=== PATIENT | female | born 1950 | race Caucasian/White ===

== ENCOUNTER 2017-12-12 10:07 | Inpatient (IN) ==
[2017-12-12] MEDS ORDERED: Ipratropium/Albuterol Neb 3 ML IH ONE (11:08)
[2017-12-12] MEDS ORDERED: Isovue-370 500 ML INFUS..BTL IV ONE (11:09)
--- NOTE | 2017-12-12 11:18 | Emergency Department Note ---
Disposition Clinical Impression: COPD exacerbation, RLQ abdominal pain, Fever Disposition: Admitted As Inpatient Condition: Fair Referrals: Rubén Olivia DO [Primary Care Provider] - Forms: ED Satisfaction Letter Time of Disposition: 14:50 General Adult HPI - General Chief complaint: ED Shortness of Breath/Dyspnea Stated complaint: COPD/illness Source: patient Limitations: no limitations Nursing Notes Reviewed: Yes Vital Signs Reviewed: Yes - History of Present Illness HPI Narrative: This is a 67-year-old female who started feeling ill on about Monday or Monday 2-3 days ago. She developed some abdominal pain towards the right lower quadrant that radiates into the right groin area. She had some nausea. She states that she started to feel weaker. She had a mechanical fall while outdoors yesterday scraping her right mckeon area. Had some trouble getting up at that time. They called the squad but she decided not to go to the hospital. She is also complaining of some worsening dyspnea. She lives on several liters of oxygen at home. And has a history of COPD. And she feels that her wheezing is worse than normal today. Pain Scale: 9 - Related Data Home Medications Medication Instructions Recorded Confirmed Fluticasone/Salmeterol [Advair 1 puff IH BID 01/23/15 10/16/17 250-50 Diskus] Ipratropium/Albuterol Sulfate 1 puff IH QID PRN 01/23/15 10/16/17 [Combivent Respimat Inhal [place]] Levothyroxine Sodium [Synthroid] 125 mcg PO DAILY 01/23/15 10/16/17 Lisinopril/Hydrochlorothiazide 1 tab PO DAILY 01/23/15 10/16/17 [Lisinopril-Hctz 20-12.5 mg Tab] Oxygen 8 l NS AD 01/23/15 10/16/17 Citalopram [CeleXA] 40 mg PO DAILY 01/26/15 10/16/17 Gabapentin [Neurontin] 600 mg PO BID 11/20/15 10/16/17 Pravastatin Sodium [Pravachol] 40 mg PO DAILY 11/20/15 10/16/17 Ergocalciferol (VITAMIN D2) 2,000 unit PO DAILY 12/04/15 10/16/17 [Vitamin D2] Furosemide [Lasix] 40 mg PO DAILY 04/18/17 10/16/17 Potassium Chloride [Klor-Con 10] 10 meq PO DAILY 04/18/17 10/16/17 Secukinumab [Cosentyx Pen] 150 mg SQ DAILY 10/16/17 10/16/17 glipiZIDE [Glucotrol] 5 mg PO BIDWM 10/16/17 10/16/17 Previous Rx's Medication Instructions Recorded Ferrous Sulfate 325 mg PO TID #90 tablet 09/28/17 Allergies Allergy/AdvReac Type Severity Reaction Status Date / Time No Known Allergies Allergy Verified 10/16/17 10:45 All systems ED: reviewed and negative except as stated. Constitutional: Reports: fever Cardiovascular: Denies: chest pain Respiratory: Reports: dyspnea, wheezes Gastrointestinal: Reports: abdominal pain, nausea Neurological: Denies: headache Past Medical History - Past Medical History Attestation: Yes The following information was validated with the patient. Medical history: Reports: arthritis, asthma, COPD, diabetes, hypertension, thyroid disease, other Surgical history: Reports: non-contributory Psychiatric history: Reports: anxiety - Social History Smoking Status: Former smoker Alcohol use: Reports: none Drug use: Reports: none Physical Exam - General Limitations: no limitations General appearance: alert, in no apparent distress - Head Head exam: atraumatic, normocephalic - Eye Eye exam: Present: PERRL, EOMI - Neck Neck exam: Present: normal inspection, full ROM. Absent: tenderness - Chest Chest inspection: Present: normal inspection - Respiratory Respiratory exam: Present: other (She has considerable diminishment bilaterally. ) - Cardiovascular Cardiovascular exam: Present: tachycardia - Abdominal Exam Abdominal exam: Present: soft, Non-Tender - Extremities Exam Extremities exam: Present: other (She had some pain with range of motion of the right hip but was able to do it. No obvious deformity of either lower extremity. 2 out of 4 dorsalis pedis and posterior tibialis pulses bilaterally) - Back Exam Back exam: Present: normal inspection. Absent: tenderness - Neurological Exam Neurological exam: Present: alert, oriented X3, CN II-XII intact Course Course Narrative: This patient's initial complaint actually was abdominal pain, it is right sided and low in the abdomen going on for at least 2-3 days. Her white count is greater than 27,000. She did have a fever. And now I have been called by the radiologist with the suggestion that this could be appendicitis. I discussed the case with general surgery and he has indicated that he is coming down to see the patient and further evaluate for potential surgical management. I have ordered Zosyn IV. This patient has other issues. She had a fall injuring her right leg. There is no evidence of a hip fracture or tib-fib fracture. She has some bruising and scrapes on the right knee. It looks like she did not hit her head or neck. She also has a bad case of COPD. Her lung sounds are very poor movement. She received duonebs. She is being admitted to the hospitalist service with surgery consultation. Vital Signs Temperature 100.5 F H 12/12/17 10:08 Pulse Rate 125 12/12/17 10:08 Respiratory Rate 24 12/12/17 10:08 Blood Pressure 129/70 12/12/17 10:08 O2 Sat by Pulse Oximetry 94 12/12/17 10:08 Temperature 100.5 F H 12/12/17 10:08 Pulse Rate 115 12/12/17 13:28 Respiratory Rate 17 12/12/17 13:28 Blood Pressure 110/79 12/12/17 13:28 O2 Sat by Pulse Oximetry 98 12/12/17 13:28 Oxygen Delivery Oxygen Delivery Nasal Cannula Medical Decision Making - Medical Records Medical records reviewed: Yes I reviewed the patient's medical records. - Lab Data Lab results reviewed: Yes I reviewed the patient's lab results. Result diagrams: 12/12/17 11:57 12/12/17 11:57 Lab Results 12/12/17 12/12/17 12/12/17 Range/Units 11:44 11:57 11:57 WBC 27.8 H (4.3-11.1) K/mcL RBC 2.90 L (3.82-4.97) M/mcL Hgb 8.5 L (11.5-15.4) g/dL Hct 26.8 L (35.3-44.9) % MCV 92.4 (83.0-100.0) fL MCH 29.3 (28.0-33.3) pg MCHC 31.7 (31.6-35.5) g/dL RDW 13.0 (11.5-14.5) % Plt Count 162 (140-400) K/mcL MPV 11.1 (9.4-12.4) fL Sample Site R Radial ABG pH 7.39 (7.32-7.45) pH Units ABG pCO2 66 H (35-45) mmHg ABG pO2 176 H (85-104) mmHg ABG HCO3 40 H (21-27) mEq/L ABG Total CO2 42 H (20-26) mEq/L ABG O2 Saturation 100 H (95-98) % ABG Base Excess 13 H (-2 to 3) mEq/L Wolf Test Positive O2 Delivery Device [employer] Inspired O2 50.0 (1-15=lpm [id number]=%) Sodium 136 (136-145) mEq/L Potassium 4.1 (3.5-5.1) mEq/L Chloride 94 L (98-107) mEq/L Carbon Dioxide 36 H (23-29) mEq/L BUN 29 H (8-23) mg/dL Creatinine 1.35 H (0.60-1.20) mg/dL Est GFR ( Amer) 47 L (> 60) Est GFR (Non-Af Amer) 39 L (> 60) BUN/Creatinine Ratio 21 (6-26) Glucose 220 H (70-105) mg/dL Calculated Osmolality 295 (280-300) Lactic Acid (0.5-2.2) mmol/L Calcium 9.3 (8.6-10.3) mg/dL Total Bilirubin 0.4 (0.3-1.0) mg/dL AST 23 (13-39) Units/L ALT 15 (7-52) Units/L Alkaline Phosphatase 78 (34-104) Units/L Troponin I < 0.03 (< 0.04) ng/mL Serum Total Protein 7.1 (6.4-8.9) g/dL Albumin 3.8 (3.5-5.7) g/dL Globulin 3.3 (2.4-3.5) g/dL Albumin/Globulin Ratio 1.2 (1.1-2.2) Urine Color (Yellow) Urine Clarity (Clear) Urine pH (5.0-8.0) pH Units Ur Specific [place] (1.010-1.025) Urine Protein (Neg-Trace) mg/dL Urine Glucose (UA) (Normal) mg/dL Urine Ketones (Negative) mg/dL Urine Blood (Negative) Urine Nitrite (Negative) Urine Bilirubin (Negative) Urine Urobilinogen (Normal) mg/dL Ur Leukocyte Esterase (Negative) Ur Culture Indicated? (NO) 12/12/17 12/12/17 Range/Units 11:57 12:25 WBC (4.3-11.1) K/mcL RBC (3.82-4.97) M/mcL Hgb (11.5-15.4) g/dL Hct (35.3-44.9) % MCV (83.0-100.0) fL MCH (28.0-33.3) pg MCHC (31.6-35.5) g/dL RDW (11.5-14.5) % Plt Count (140-400) K/mcL MPV (9.4-12.4) fL Sample Site ABG pH (7.32-7.45) pH Units ABG pCO2 (35-45) mmHg ABG pO2 (85-104) mmHg ABG HCO3 (21-27) mEq/L ABG Total CO2 (20-26) mEq/L ABG O2 Saturation (95-98) % ABG Base Excess (-2 to 3) mEq/L Wolf Test O2 Delivery Device Inspired O2 (1-15=lpm [id number]=%) Sodium (136-145) mEq/L Potassium (3.5-5.1) mEq/L Chloride (98-107) mEq/L Carbon Dioxide (23-29) mEq/L BUN (8-23) mg/dL Creatinine (0.60-1.20) mg/dL Est GFR ( Amer) (> 60) Est GFR (Non-Af Amer) (> 60) BUN/Creatinine Ratio (6-26) Glucose (70-105) mg/dL Calculated Osmolality (280-300) Lactic Acid 1.2 (0.5-2.2) mmol/L Calcium (8.6-10.3) mg/dL Total Bilirubin (0.3-1.0) mg/dL AST (13-39) Units/L ALT (7-52) Units/L Alkaline Phosphatase (34-104) Units/L Troponin I (< 0.04) ng/mL Serum Total Protein (6.4-8.9) g/dL Albumin (3.5-5.7) g/dL Globulin (2.4-3.5) g/dL Albumin/Globulin Ratio (1.1-2.2) Urine Color Yellow (Yellow) Urine Clarity Slightly Hazy (Clear) Urine pH 5.0 (5.0-8.0) pH Units Ur Specific [place] 1.026 H (1.010-1.025) Urine Protein Trace (Neg-Trace) mg/dL Urine Glucose (UA) Normal (Normal) mg/dL Urine Ketones Negative (Negative) mg/dL Urine Blood Negative (Negative) Urine Nitrite Negative (Negative) Urine Bilirubin Small H (Negative) Urine Urobilinogen Normal (Normal) mg/dL Ur Leukocyte Esterase Negative (Negative) Ur Culture Indicated? NO (NO) - Radiology Data Radiology results reviewed: Yes I reviewed the patient's radiology results. - EKG Data EKG #1 EKG attestation: Yes I reviewed and interpreted this EKG. EKG results narrative: EKG interpreted by me showing sinus tachycardia at a rate of 120, QRS of 89, QTC 365, axis of 65. ST depression laterally.
[2017-12-12 11:47] LABS: ABG Base Excess 13 mEq/L (-2 to 3); ABG HCO3 40 mEq/L (21-27); ABG Oxygen Saturation 100 % (95-98); ABG PCO2 66 mmHg (35-45); ABG PH 7.39 pH Units (7.32-7.45); ABG PO2 176 mmHg (85-104); ABG TCO2 42 mEq/L (20-26)
[2017-12-12 12:11] LABS: Mean Platelet Volume 11.1 fL (9.4-12.4)
[2017-12-12 12:12] LABS: Hematocrit 26.8 % (35.3-44.9); Hemoglobin 8.5 g/dL (11.5-15.4); Mean Corpuscular HGB Conc 31.7 g/dL (31.6-35.5); Mean Corpuscular Hemoglobin 29.3 pg (28.0-33.3); Mean Corpuscular Volume 92.4 fL (83.0-100.0); Platelet Count 162 K/mcL (140-400)
[2017-12-12 12:34] LABS: Troponin I < 0.03 ng/mL (< 0.04)
[2017-12-12 12:40] LABS: Alanine Aminotransferase 15 Units/L (7-52); Albumin 3.8 g/dL (3.5-5.7); Albumin/Globulin Ratio 1.2 (1.1-2.2); Alkaline Phosphatase 78 Units/L (34-104); Aspartate Amino Transferase 23 Units/L (13-39); BUN/Creatinine Ratio 21 (6-26); Bilirubin,Total 0.4 mg/dL (0.3-1.0); Blood Urea Nitrogen 29 mg/dL (8-23); Calcium 9.3 mg/dL (8.6-10.3); Carbon Dioxide 36 mEq/L (23-29); Chloride 94 mEq/L (98-107); Globulin 3.3 g/dL (2.4-3.5); Glucose 220 mg/dL (70-105); Osmolality,Calculated 295 (280-300); Potassium 4.1 mEq/L (3.5-5.1); Sodium 136 mEq/L (136-145); Total Protein 7.1 g/dL (6.4-8.9); eGFR For African Americans 47 (> 60); eGFR For Non-African Americans 39 (> 60)
[2017-12-12 12:41] LABS: Bilirubin,Urine Small (Negative); Blood,Urine Negative (Negative); Color,Urine Yellow (Yellow); Glucose,Urine (UA) Normal (Normal); Ketones,Urine Negative (Negative); Leukocyte Esterase,Urine Negative (Negative); Nitrite,Urine Negative (Negative); Protein,Urine Trace mg/dL (Neg-Trace); Specific Gravity,Urine 1.026 (1.010-1.025); Urobilinogen,Urine Normal (Normal)
[2017-12-12 12:44] LABS: Clarity,Urine Slightly Hazy (Clear)
[2017-12-12] MEDS ORDERED: Piperacillin/Tazobactam 3.375 GM in 0.9 % Sodium Chloride Mini Bag 100 ML IVPB ONE (14:49)
--- NOTE | 2017-12-12 15:35 | General Surg History&Physical ---
Date of Encounter: 12/12/17 Time of Encounter: 15:25 Assessment and Plan (1) Acute perforated appendicitis Current Visit: Yes Status: Acute The assessment and plan as outlined above was discussed with the patient and/or family members who expressed understanding and agreement. All questions were answered. Emergent laparoscopic appendectomy. She has end-stage COPD and her perioperative management will be problematic. She will likely be hypoxic and required prolonged ventilatory support. I think it is important to proceed with emergent appendectomy to hold the progression of sepsis History of Present Illness Chief complaint: Right lower quadrant abdominal pain HPI: Ms. Pruitt is a 67 year old female With end-stage COPD on continuous 5 L of oxygen. She developed right lower quadrant abdominal pain 3 days ago. Since that time she has had 2 falls at home because of the severity of pain in her right lower quadrant limits her ability to use her walker. She has continuous pain. She has shakes chills and fever. She has no history of diarrhea. She has not had previous right lower quadrant abdominal pain. She sought evaluation in the emergency room. CAT scan was obtained. CAT scan demonstrated appendicolith and periappendiceal fluid consistent with perforated appendicitis. Although the radiologist reported phlegmon, my interpretation suggests early perforation with not much in way of abscess formation. Blood cell count elevated 27,500. I have recommended emergent laparoscopic appendectomy to help the progression of sepsis. Admitted for emergent appendectomy Past Med Surg Social Fam HX - Past Medical History Medical history: arthritis, asthma, COPD, diabetes, hypertension, thyroid disease, other Additional medical history: oxygen use, cor. pulmonole, emphysema, bronchitis, pneumonia, hypothyroid, carpal tunnel,. chronic vertigo Psychiatric history: anxiety - Past Surgical History Surgical History: non-contributory Additional surgical history: EGD/colonoscopy - Social History Smoking Status: Former smoker Alcohol use: none Drug use: none Medications and Allergies Fluticasone/Salmeterol [Advair 250-50 Diskus] 1 puff IH BID 01/23/15 [History] Ipratropium/Albuterol Sulfate [Combivent Respimat Inhal [place]] 1 puff IH QID PRN 01/23/15 [History] Oxygen 8 l NS AD 01/23/15 [History] Citalopram [CeleXA] 40 mg PO DAILY 01/26/15 [History] Gabapentin [Neurontin] 600 mg PO BID 11/20/15 [History] Pravastatin Sodium [Pravachol] 40 mg PO DAILY 11/20/15 [History] Ergocalciferol (VITAMIN D2) [Vitamin D2] 2,000 unit PO DAILY 12/04/15 [History] Furosemide [Lasix] 40 mg PO DAILY 04/18/17 [History] Potassium Chloride [Klor-Con 10] 10 meq PO DAILY 04/18/17 [History] Ferrous Sulfate 325 mg PO TID #90 tablet 09/28/17 [Rx] Secukinumab [Cosentyx Pen] 300 mg SQ QMONTH 10/16/17 [History] glipiZIDE [Glucotrol] 5 mg PO DAILY 10/16/17 [History] Levothyroxine Sodium 125 mcg PO DAILY 12/12/17 [History] Lisinopril-HCTZ 20-12.5 [Prinzide 20-12.5] 1 tab PO DAILY 12/12/17 [History] Multivitamin [One Daily Essential] 1 tab PO DAILY 12/12/17 [History] 3 Allergy/AdvReac Type Severity Reaction Status Date / Time No Known Allergies Allergy Verified 10/16/17 10:45 Review of Systems All systems PM: The remainder of the systems were reviewed and are negative General Surgery Exam Initial Vital Signs Temp Pulse Resp BP Pulse Ox 100.5 F H 125 24 129/70 94 12/12/17 10:08 12/12/17 10:08 12/12/17 10:08 12/12/17 10:08 12/12/17 10:08 - General physical appearance well developed, well nourished, severe pain, chronically ill, other (Morbid obesity) - Neck no masses, no bruits, trachea midline, no lymphadectomy, no venous distension - Respiratory wheezing: bilateral (Markedly decreased breath sounds) - Abdomen Abdomen general surgery: Present: bowel sounds present, tender Abdominal Tenderness: Present: RLQ (Guarding and rebound tenderness in the right lower quadrant over McBurney's point) - Neurologic Present: CN 2-12 grossly intact, normal coordination, normal sensation - Psychiatric Psychiatric general surgery: Present: appropriate, oriented to person, oriented to place, oriented to time, speech is normal, memory intact Results - Labs 12/12/17 11:57 12/12/17 11:57 Abnormal lab results WBC 27.8 K/mcL (4.3-11.1) H 12/12/17 11:57 RBC 2.90 M/mcL (3.82-4.97) L 12/12/17 11:57 Hgb 8.5 g/dL (11.5-15.4) L 12/12/17 11:57 Hct 26.8 % (35.3-44.9) L 12/12/17 11:57 ABG pCO2 66 mmHg (35-45) H 12/12/17 11:44 ABG pO2 176 mmHg (85-104) H 12/12/17 11:44 ABG HCO3 40 mEq/L (21-27) H 12/12/17 11:44 ABG Total CO2 42 mEq/L (20-26) H 12/12/17 11:44 ABG O2 Saturation 100 % (95-98) H 12/12/17 11:44 ABG Base Excess 13 mEq/L (-2 to 3) H 12/12/17 11:44 Chloride 94 mEq/L (98-107) L 12/12/17 11:57 Carbon Dioxide 36 mEq/L (23-29) H 12/12/17 11:57 BUN 29 mg/dL (8-23) H 12/12/17 11:57 Creatinine 1.35 mg/dL (0.60-1.20) H 12/12/17 11:57 Est GFR ( Amer) 47 (> 60) L 12/12/17 11:57 Est GFR (Non-Af Amer) 39 (> 60) L 12/12/17 11:57 Glucose 220 mg/dL (70-105) H 12/12/17 11:57 Ur Specific [place] 1.026 (1.010-1.025) H 12/12/17 12:25 Urine Bilirubin Small (Negative) H 12/12/17 12:25 All other labs normal. - Imaging CT scan - abdomen: image reviewed (I personally reviewed the CAT scan of the abdomen. She has periappendiceal fluid and appendicolith as well as periappendiceal inflammation. I believe this is a early perforation rather than a phlegmon.)
[2017-12-12] MEDS ORDERED: Naloxone 0.4 MG/ML INJ IVP PRN ×2 (15:37→18:25)
--- NOTE | 2017-12-12 15:48 | Internal Med History&Physical ---
<Lauren Huitron Rajwinder - Last Filed: 12/12/17 17:04> Date of Encounter: 12/12/17 Time of Encounter: 15:46 Internal Medicine - H&P: HPI Chief complaint: Dyspnea, SOB, and RLQ abdominal pain Admitted From: Home Plans for Post Hospital Care: Home History of present illness: Ms. Pruitt is a 67 year old female with history of COPD, DM, and LUPE. The patient having abdominal pain that began on Monday. She indicates that the pain is RLQ that radiates to the right groin. The patient also indicated c/o sob and dyspnea. She has a hx of COPD and wears home o2/8L. She also reported a fall from yesterday when she scraped her right knee, a small abrasion is noted. The patient CXR showed subtle LL base opacity which could represent atelectasis vs a early developing PNA. The patient urine was neg for infection, however it was + for small bilirubin. WBC is 27.8, hgb is 8.5, creat 1.35, bs was 220. Trop was <0.03. The patient lactate is 1.2. Right hip xray was negative for fx. She was started on IV zosyn and will continue q8h. ABG performed. CT of abd showed findings consistent with acute appendicitis. Surgery was consulted in the ED and will follow the patient. Past Med Surg Social Fam HX - Past Medical History Medical history: arthritis, asthma, COPD, diabetes, hypertension, thyroid disease, other Additional medical history: oxygen use, cor. pulmonole, emphysema, bronchitis, pneumonia, hypothyroid, carpal tunnel,. chronic vertigo Psychiatric history: anxiety - Past Surgical History Surgical History: non-contributory Additional surgical history: EGD/colonoscopy - Social History Smoking Status: Former smoker Alcohol use: none Drug use: none Internal Medicine - H&P: Meds Fluticasone/Salmeterol [Advair 250-50 Diskus] 1 puff IH BID 01/23/15 [History] Ipratropium/Albuterol Sulfate [Combivent Respimat Inhal [place]] 1 puff IH QID PRN 01/23/15 [History] RX: Oxygen 8 l NS AD 01/23/15 [History] Citalopram [CeleXA] 40 mg PO DAILY 08/10/15 [History] Gabapentin [Neurontin] 600 mg PO BID 11/20/15 [History] Pravastatin Sodium [Pravachol] 40 mg PO DAILY 11/20/15 [History] Ergocalciferol (VITAMIN D2) [Vitamin D2] 2,000 unit PO DAILY 12/04/15 [History] Furosemide [Lasix] 40 mg PO DAILY 04/18/17 [History] Potassium Chloride [Klor-Con 10] 10 meq PO DAILY 04/18/17 [History] RX: Ferrous Sulfate 325 mg PO TID #90 tablet 09/28/17 [Rx] Secukinumab [Cosentyx Pen] 300 mg SQ QMONTH 10/16/17 [History] glipiZIDE [Glucotrol] 5 mg PO DAILY 10/16/17 [History] Multivitamin [One Daily Essential] 1 tab PO DAILY 12/12/17 [History] RX: Levothyroxine Sodium 125 mcg PO DAILY 12/12/17 [History] RX: Lisinopril-HCTZ 20-12.5 [Prinzide 20-12.5] 1 tab PO DAILY 12/12/17 [History] 3 Allergy/AdvReac Type Severity Reaction Status Date / Time No Known Allergies Allergy Verified 10/16/17 10:45 All Systems PM: A 10-system review of systems was performed and is negative for pertinent findings except as documented above in the HPI. - Constitutional Constitutional: fever(s), no chills, no night sweats - EENT Eyes: no change in vision, no discharge, no pain, no photophobia Ears: no ear discharge, no ear pain, no tinnitus Nose, mouth and throat: no dysphagia, no nasal discharge, no neck pain, no sore throat - Cardiovascular Cardiovascular ROS IM: dyspnea, no chest pain, no diaphoresis, no lightheadedness, no palpitations, no syncope - Respiratory Respiratory: cough, dyspnea, no wheezing, no excessive phlegm production - Gastrointestinal Gastrointestinal: nausea, no abdominal pain, no diarrhea, no hematemesis, no hematochezia, no melena, no vomiting - Genitourinary Genitourinary: no change in urinary stream, no dysuria, no flank pain, no hematuria - Musculoskeletal Musculoskeletal ROS IM: no numbness, no tingling - Integumentary Integumentary IM: sores (Right knee scrape, from fall), no rash, no unusual bruising - Neurological Neurological ROS: no confusion, no convulsions, no focal weakness, no numbness, no tingling, no tremor(s) - Hematologic/Lymphatic Hematologic/Lymphatic: no easy bruising - Constitutional Vitals: Temp Pulse Resp BP Pulse Ox 100.5 F H 115 17 110/79 98 12/12/17 10:08 12/12/17 13:28 12/12/17 13:28 12/12/17 13:28 12/12/17 13:28 General appearance: Present: cooperative, A&O X 3, answers questions appropriately - Head Head exam: Present: atraumatic, normocephalic - Eye Eye exam: Present: PERRL, conjuntiva pink, sclera anicteric Pupils: Present: PERRL - Neck Neck exam general surgery: Present: supple, trachea midline. Absent: lymphadenopathy - Respiratory Respiratory exam: Present: decreased breath sounds. Absent: accessory muscle use, rales, rhonchi, wheezes - Cardiovascular Cardiovascular exam: Present: RRR, +S1, +S2. Absent: diastolic murmur, gallop, rubs, systolic murmur - GI/Abdominal GI/Abdominal exam: Present: normal bowel sounds, soft, no peritoneal signs. Absent: distended, tenderness - Extremities Exam Extremities exam: Present: warm, radial pulses palpable and symmetrical. Absent : calf tenderness, cyanotic, pedal edema - Neurological Exam Neurological exam: Present: CN II-XII intact, oriented X3, no focal deficits. Absent: pronater drift, facial droop, speech deficit - Skin Skin exam: Present: dry, intact Internal Med - H&P Results - Labs CBC & Chem 7: 12/12/17 11:57 12/12/17 11:57 - Assessment and plan (1) Sepsis Current Visit: Yes Status: Acute Assessment and plan: Sepsis likely due to PNA and appendicitis. Monitor CBC and BMP daily. Continue IV zosyn and add doxycyline Surgery consulted for appendicitis plan for surgical intervention Qualifiers: Sepsis type: Pneumococcus Qualified Code(s): A40.3 - Sepsis due to Streptococcus pneumoniae (2) Acute perforated appendicitis Current Visit: Yes Status: Acute Assessment and plan: Dr. Montes De Oca was consulted by the ED. Plans for surgical intervention- Appendectomy. High risk for complications. Will continue zosyn IV q8h. Monitor daily labs. Pain controlled at this time. (3) COPD exacerbation Current Visit: Yes Status: Acute Assessment and plan: Bronchodilators prn sob and wheezing. Home o2, from 4-8L per the patient-currently on 4L D/T COPD the patient is high risk foe resp failure and may need to be placed on vent post surgery. (4) Pneumonia Current Visit: Yes Status: Suspected Assessment and plan: Suspected PNA, will start doxycycline in addition to zosyn Monitor daily labs Qualifiers: Pneumonia type: due to Pneumococcus Laterality: left Lung location: lower lobe of lung Qualified Code(s): J13 - Pneumonia due to Streptococcus pneumoniae - Time Spent With Patient Total time spent is greater than 50% in coordination of care (as documented) at patient's floor/unit and/or counseling patient: 25 - 35 minutes <Gurwinder Coombs - Last Filed: 12/12/17 17:14> Date of Encounter: 12/12/17 Time of Encounter: 15:45 Internal Medicine - H&P: HPI History of present illness: Ms. Pruitt is a 67 year old female All Systems PM: A 10-system review of systems was performed and is negative for pertinent findings except as documented above in the HPI. - Constitutional Vitals: Temp Pulse Resp BP Pulse Ox 100.5 F H 115 17 110/79 98 12/12/17 10:08 12/12/17 13:28 12/12/17 16:09 12/12/17 16:09 12/12/17 16:09 Internal Med - H&P Results - Labs CBC & Chem 7: 12/12/17 11:57 12/12/17 11:57 - Attending Attestation I examined this patient and my medical decision-making was reviewed with the Nurse Practitioner, Lauren Huitron. I agree with the documented findings, disposition and treatment plan as described with any changes as documented below. 67-year-old female patient with history of COPD and chronic respiratory failure on 8 L home oxygen at baseline, diabetes, hypertension presented to the ER with complaints of abdominal pain in the right lower quadrant. Has been going on for 3 days now. She had a fall at home while trying to use the bathroom yesterday and scraped her right knee. She denies any chest pain. She does have chronic cough and shortness of breath related to her COPD. On exam, she has decreased air entry bilaterally with mild wheezing. Abdomen is soft, tender in the right lower quadrant with guarding. Heart sounds are normal. CT scan of the abdomen and pelvis shows acute appendicitis with fluid collection and diverticulosis. Chest x-ray shows possible atelectasis or infiltrate in the left lung base. CT scan did show mild basilar atelectasis. - Assessment and plan (1) Sepsis Current Visit: Yes Status: Acute Assessment and plan: Continue antibiotics to treat pneumonia and appendicitis. Follow culture results. Qualifiers: Sepsis type: Pneumococcus Qualified Code(s): A40.3 - Sepsis due to Streptococcus pneumoniae (2) Acute perforated appendicitis Current Visit: Yes Status: Acute Assessment and plan: Evaluated by surgery. Need surgical intervention. Plan for surgery later today. Patient does have high risk for complications due to her underlying severe COPD and chronic respiratory failure. May have difficulty extubating if she ends up with general anesthesia. Will monitor in ICU postsurgery if this turns out to be the case. (3) Pneumonia Current Visit: Yes Status: Suspected Assessment and plan: Atelectasis versus infiltrate at left lung base. We will start treatment for now with Zosyn and doxycycline. De-escalate antibiotics if cultures are negative. Qualifiers: Pneumonia type: due to Pneumococcus Laterality: left Lung location: lower lobe of lung Qualified Code(s): J13 - Pneumonia due to Streptococcus pneumoniae (4) Diabetes mellitus, type 2 Current Visit: Yes Status: Chronic Assessment and plan: Monitor blood sugars. Place patient on sliding scale insulin. Patient will currently be nothing by mouth for surgery. We will start diabetic diet when she is able to eat. Qualifiers: Diabetes mellitus residential insulin use: without residential use Diabetes mellitus complication status: with hyperglycemia Qualified Code(s): E11.65 - Type 2 diabetes mellitus with hyperglycemia (5) Essential hypertension Current Visit: Yes Status: Chronic Assessment and plan: Blood pressure is well controlled at this time. Continue home medications as tolerated (6) COPD exacerbation Current Visit: Yes Status: Acute Assessment and plan: Currently on baseline home oxygen. Will place her on bronchodilators as needed. May have mild exacerbation. Patient will receive antibiotics. No Indication for steroids at this time. If patient's symptoms worsen, will place her on steroids. (7) Acute kidney injury Current Visit: Yes Status: Acute Assessment and plan: Mild acute kidney injury. Creatinine 1.35. BUN 29. Could be related to sepsis. Recent creatinine was 1.28 in September but it was normal prior to that in August. Will hydrate. Follow renal function closely. - Time Spent With Patient Total time spent is greater than 50% in coordination of care (as documented) at patient's floor/unit and/or counseling patient:
[2017-12-12] MEDS ORDERED: CefOXitin 1,000 MG VIAL ONE (15:50)
--- NOTE | 2017-12-12 16:02 | Anesthesia Evaluation PreOp ---
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 History: Denies Any Significant HX Other Medical History: Diabetes Type II, Thyroid, GERD, Other (anxiety/ depression chronic pain obese) Anesthesia History: No Prior Anesthetic Complications : No (post menopausal ) Alcohol Use: none Drug use: none Medications and Allergies Fluticasone/Salmeterol [Advair 250-50 Diskus] 1 puff IH BID 01/23/15 [History] Ipratropium/Albuterol Sulfate [Combivent Respimat Inhal [place]] 1 puff IH QID PRN 01/23/15 [History] Oxygen 8 l NS AD 01/23/15 [History] Citalopram [CeleXA] 40 mg PO DAILY 01/26/15 [History] Gabapentin [Neurontin] 600 mg PO BID 11/20/15 [History] Pravastatin Sodium [Pravachol] 40 mg PO DAILY 11/20/15 [History] Ergocalciferol (VITAMIN D2) [Vitamin D2] 2,000 unit PO DAILY 12/04/15 [History] Furosemide [Lasix] 40 mg PO DAILY 04/18/17 [History] Potassium Chloride [Klor-Con 10] 10 meq PO DAILY 04/18/17 [History] Ferrous Sulfate 325 mg PO TID #90 tablet 09/28/17 [Rx] Secukinumab [Cosentyx Pen] 300 mg SQ QMONTH 10/16/17 [History] glipiZIDE [Glucotrol] 5 mg PO DAILY 10/16/17 [History] Levothyroxine Sodium 125 mcg PO DAILY 12/12/17 [History] Lisinopril-HCTZ 20-12.5 [Prinzide 20-12.5] 1 tab PO DAILY 12/12/17 [History] Multivitamin [One Daily Essential] 1 tab PO DAILY 12/12/17 [History] 3 Allergy/AdvReac Type Severity Reaction Status Date / Time No Known Allergies Allergy Verified 10/16/17 10:45 - Meds/Allergy Pre-op Review Medications Reviewed: Yes Allergies Reviewed: Yes Beta Blockers on Current Med List: No Anesthesia Results - Labs 12/12/17 11:57 12/12/17 11:57 Anesthesia Exam Vital Signs - Last 8 Hours Temp Pulse Resp BP Pulse Ox 12/12/17 13:28 115 17 110/79 98 12/12/17 12:31 117 18 110/79 98 12/12/17 11:43 113 22 119/90 100 12/12/17 11:39 26 96 12/12/17 10:08 100.5 F H 125 24 129/70 94 Intake and Output 12/12/17 12/12/17 12/12/17 07:59 15:59 23:59 Other: Weight 102.512 kg Patient Weight 12/12/17 23:59 Weight 102.512 kg Height: 1.68m Weight: 102kg NPO (# of Hours): >8hrs Pain Scale: 0 Pain Scale Used: Numeric (1 - 10) - HEENT Pupil (Motor): Pupils equal Mallampati: III Teeth: Edentulous Oral Opening: Greater than 3 - ELECTRIC SEALING MACHINE OPERATOR LOC: Oriented ELECTRIC SEALING MACHINE OPERATOR Motor: Normal RUE, Normal LUE, Normal RLE, Normal LLE, Normal Face ELECTRIC SEALING MACHINE OPERATOR Sensory: Normal: RUE, LUE, RLE, LLE, Face - Cardiac Rhythm: Regular - Pulmonary Breath Sounds: bilateral Clear Respiratory Effort: Symmetrical Anesthesia Assess/Plan ASA Score: 4, E Modified [place] Scale for Level of Consciousness: Cooperative, oriented, and tranquil Anesthetic Plan: General Autologous Blood: No Monitoring Plan: Standard Monitors Recovery Plan: PACU
[2017-12-12] MEDS ORDERED: Albuterol 2.5 MG/3 ML NEBULIZER IH ONE (16:04)
[2017-12-12] MEDS ORDERED: Albuterol 2.5 MG/3 ML NEBULIZER ONE (16:05)
[2017-12-12] MEDS ORDERED: Acetaminophen IV 1,000 MG/100 ML INFUS..BTL ONE (16:05)
[2017-12-12] MEDS ORDERED: Famotidine 20 MG/2 ML VIAL ONE (16:05)
[2017-12-12] MEDS ORDERED: *HR* Promethazine 25 MG/ML VIAL IVP PRN (16:07)
[2017-12-12] MEDS ORDERED: *HR* HYDROmorphone (PF) 1 MG/ML SYRINGE IVP PRN (16:07)
[2017-12-12] MEDS ORDERED: *HR* Dextrose 50 % in Water (Syg) 50 ML SYRINGE IVP PRN ×2 (16:18→18:25)
[2017-12-12] MEDS ORDERED: D5% in Water 1,000 ML IVC PRN ×2 (16:18→18:25)
[2017-12-12] MEDS ORDERED: Dextrose Gel 15 GM/37.5 ML TUBE PO PRN ×4 (16:18→18:25)
[2017-12-12] MEDS ORDERED: Ipratropium/Albuterol Neb 3 ML IH PRN (16:19)
[2017-12-12] MEDS ORDERED: *HR* Succinylcholine 200 MG/10 ML VIAL IVP ONE (16:45)
[2017-12-12] MEDS ORDERED: *HR* PHENYLEPHRINE 1,000 MCG/10 ML SYRINGE IVP ONE (16:45)
[2017-12-12] MEDS ORDERED: Neostigmine Methylsulfate 3 MG/3 ML SYRINGE ONE (16:45)
[2017-12-12] MEDS ORDERED: *HR* Rocuronium Bromide 50 MG/5 ML VIAL ONE (16:45)
[2017-12-12] MEDS ORDERED: Lidocaine -MPF 2% 2 ML VIAL ONE (16:45)
[2017-12-12] MEDS ORDERED: *HR* Propofol 200 MG/20 ML VIAL IVP ONE (16:45)
[2017-12-12] MEDS ORDERED: Dexamethasone 4 MG/ML VIAL ONE (16:45)
[2017-12-12] MEDS ORDERED: Ondansetron 4 MG/2 ML VIAL ONE (16:45)
[2017-12-12] MEDS ORDERED: *HR* FentaNYL (PF) 100 MCG/2 ML VIAL ONE (16:45)
[2017-12-12] MEDS ORDERED: Ringers Solution, Lactated 1,000 ML IVC SCH (17:15)
--- NOTE | 2017-12-12 17:23 | Operative Note ---
Date of procedure: 12/12/17 Pre-op diagnosis: Ruptured acute appendicitis Post-op diagnosis: same Procedure: #1 laparoscopic appendectomy #2 drainage of intra-abdominal abscess Anesthesia: GIA Surgeon: Claudio Montes De Oca Was there an assistant head cashier present: Yes Ultrasonic Welding Machine Operator: Bethany Ross Estimated blood loss (cc): 25 Specimen: Appendix Condition: stable Disposition: PACU Procedure in Detail: After informed consent patient was taken major operative suite placed supine position given adequate general anesthetic. The abdomen is prepped and draped in sterile fashion utilizing ChloraPrep solution standard draping techniques. Timeout was taken and the patient was identified. I made a vertical midline incision above the umbilicus dissected down to level of fascia and placed 2-0 Vicryl traction stitches.. The Ruelas trocar was used to enter the abdomen visually. I insufflated the abdomen to 15 mm pressure CO2. A 5 mm trocar was placed in the low midline and a 12 trocar was placed in the right upper quadrant. The cecum was adherent to the anterior abdominal wall. As I mobilize the cecum abscess cavity. The abscess cavity was completely drained. I mobilize the entire right colon. The location the appendix was not readily apparent. The appendix was retrocecal and involved in an intense inflammatory process. Over the next 30 minutes I was able to define the margins of the appendix. The mesoappendix was divided with 2 loads of vascular jimbo. Base the cecum was divided with 2 loads of gastrointestinal jimbo. The appendix was removed in a specimen bag. I replaced the Ruelas trocar and irrigated with 1 L of antibiotic containing solution. All trochars removed fascia was closed with 0 Vicryl and the skin with 2-0 Vicryl and 4-0 Vicryl.
--- NOTE | 2017-12-12 17:54 | Anesthesia Evaluation Post Op ---
Date of Encounter: 12/12/17 Time of Encounter: 17:53 - Vital Signs Vital Signs: Vital Signs/O2 Sat, Most Current Temp Pulse Resp BP Pulse Ox 98.4 F 105 24 128/68 98 12/12/17 17:44 12/12/17 17:44 12/12/17 17:44 12/12/17 17:44 12/12/17 17:44 - Lungs Lungs: Clear Ascult./Percussion - Airway Airway: Non-obstructed - Cardiovascular Regular Rate - Mental Status Mental Status: Asleep with brisk response to light stimulation - Pain Pain Scale: 3 Pain Scale used: Pang-Gomez (Faces) - Nausea Vomiting Nausea Vomiting: Not Present - Hydration Hydration: NPO, Has not voided - Discharge PostOp Status: Transfer Patient to floor
[2017-12-12] MEDS ORDERED: *HR* Heparin 5,000 UNIT/ML VIAL SQ SCH (18:00)
[2017-12-12] MEDS ORDERED: Doxycycline 100 MG in 0.9 % Sodium Chloride Mini Bag 100 ML IVPB SCH (18:00)
[2017-12-12] MEDS ORDERED: Insulin LISPRO 300 UNITS/3 ML VIAL SQ SCH (18:00)
[2017-12-12] MEDS ORDERED: Ondansetron 4 MG/2 ML VIAL IVP PRN (18:25)
[2017-12-12] MEDS: OXYCODONE Oral CONC 10 MG/0.5 ML ORAL.SYG SL PRN (18:57)
[2017-12-12] MEDS: Doxycycline 100 MG in 0.9 % Sodium Chloride Mini Bag 100 ML IVPB SCH (18:58)
[2017-12-12] MEDS: 0.9 % Sodium Chloride 1,000 ML IVC SCH (19:21)
[2017-12-13] MEDS ORDERED: Piperacillin/Tazobactam 3.375 GM in 0.9 % Sodium Chloride Mini Bag 100 ML IVPB SCH
[2017-12-13] MEDS: Piperacillin/Tazobactam 3.375 GM in 0.9 % Sodium Chloride Mini Bag 100 ML IVPB SCH ×3 (01:04→16:30)
[2017-12-13] MEDS: Insulin LISPRO 300 UNITS/3 ML VIAL SQ SCH ×4 (01:05→17:42)
[2017-12-13] MEDS: OXYCODONE Oral CONC 10 MG/0.5 ML ORAL.SYG SL PRN (04:20)
[2017-12-13] MEDS: *HR* Heparin 5,000 UNIT/ML VIAL SQ SCH ×2 (06:05→17:42)
[2017-12-13] MEDS: Doxycycline 100 MG in 0.9 % Sodium Chloride Mini Bag 100 ML IVPB SCH ×2 (06:06→20:42)
--- NOTE | 2017-12-13 06:18 | Electrocardiograph Report ---
[place] [facility] Test Date: 2017-12-12 Pat Name: Molly Pruitt Department: 103 Room: 3A22 Gender: F Supervisor Harvesting: MSC : 1950 Requested By: Se Padilla Order Number: [id number] Reading MD: Cristiano Ramirez Measurements Intervals North Rate: 120 P: 79 NE: 142 QRS: 65 QRSD: 89 T: 82 QT: 294 QTc: 365 Interpretive Statements SINUS TACHYCARDIA NONSPECIFIC ST & T-WAVE ABNORMALITY ABNORMAL RHYTHM ECG Electronically Signed On 12-13-2017 6:17:09 EDT by Cristiano Ramirez
--- NOTE | 2017-12-13 09:18 | General Surgery Progress Note ---
Date of Encounter: 12/13/17 Time of Encounter: 09:15 - Assessment and Plan (1) Acute perforated appendicitis Current Visit: Yes Status: Acute The patient is postoperative day 1 from laparoscopic appendectomy. Her preoperative pain is gone. She has some mild incisional pain. She is currently afebrile. We will continue intravenous antibiotic secondary to intra- abdominal abscess. Subjective Narrative: The patient has had relief of her abdominal pain that was present preoperatively. She had successful drainage of intra-abdominal abscess as well as laparoscopic appendectomy of a completely necrotic Pérez perforated appendix. Incisions look good today. Her oxygen saturations are good. She continues to require high levels of oxygen supplementation secondary to end- stage COPD. much improved after appendectomy Objective Vital Signs - Last 8 Hours Temp Pulse Resp BP Pulse Ox 12/13/17 06:59 98.5 F 68 20 110/60 95 12/13/17 04:32 98.9 F 101 18 112/58 98 Intake and Output 12/12/17 12/13/17 12/13/17 23:59 07:59 15:59 Intake Total 100 / 100 100 / 100 Output Total 10 / 10 Balance 90 / 90 100 / 100 Intake: IV Fluids 100 / 100 100 / 100 Doxycycline 100 MG In 0.9 % 100 / 100 Sodium Chloride (Mini-Bag +) 100 ML @ 100 mls/hr IVPB Q12HR [facility] Rx#:[id number] Zosyn 3.375 GM In 0.9 % Sodium 100 / 100 Chloride (Mini-Bag +) 100 ML @ 25 mls/hr IVPB Q8HR [facility] Rx#: [id number] Oral 0 / 0 Output: Urine 0 / 0 Estimated Blood Loss 10 / 10 Other: # Voids 1 # Urine Diapers 1 Blood Glucose* 181 - General physical appearance moderate pain, obese - Respiratory crackles: bilateral (Decreased breath sounds bilaterally) - Cardiovascular Cardiovascular exam: Present: RRR, no murmurs/rubs/gallops - Abdomen Abdomen: Present: bowel sounds present (Incisions intact with no bleeding) - Incision Incision: Present: clean and dry - Labs 12/12/17 11:57 12/12/17 11:57 - VTE Documentation of Mechanical Device: Intermittent pneumatic compression device Consult Discharge Plan - Plan Referrals: Rubén Olivia DO [Primary Care Provider] -
[2017-12-13] MEDS: Pantoprazole 40 MG VIAL IVP SCH (09:25)
[2017-12-13] MEDS: 0.9 % Sodium Chloride 1,000 ML IVC SCH (09:30)
--- NOTE | 2017-12-13 12:20 | Internal Med Progress Note ---
Date of Encounter: 12/13/17 Time of Encounter: 11:50 - Assessment and plan (1) COPD exacerbation Current Visit: Yes Status: Acute Assessment and plan: Tolerating current treatment. No steroids needed currently. Continues PRN meds and oxygen. Will start steroids if needed. Continue abx. (2) Acute perforated appendicitis Current Visit: Yes Status: Acute Assessment and plan: Tolerated going to OR yesterday. Has some post op pain. Plan per surgery. (3) Pneumonia Current Visit: Yes Status: Suspected Assessment and plan: Atelectasis versus infiltrate at left lung base. On IV abx at this time. Will recheck CXR tomorrow. Qualifiers: Pneumonia type: due to Pneumococcus Laterality: left Lung location: lower lobe of lung Qualified Code(s): J13 - Pneumonia due to Streptococcus pneumoniae (4) Sepsis Current Visit: Yes Status: Acute Assessment and plan: Continue antibiotics to treat pneumonia and appendicitis. Follow culture results. Qualifiers: Sepsis type: Pneumococcus Qualified Code(s): A40.3 - Sepsis due to Streptococcus pneumoniae (5) Diabetes mellitus, type 2 Current Visit: Yes Status: Chronic Assessment and plan: Monitor blood sugars. Currently uncontrolled. Continue coverage. Qualifiers: Diabetes mellitus terminal manager insulin use: without correction use Diabetes mellitus complication status: with hyperglycemia Qualified Code(s): E11.65 - Type 2 diabetes mellitus with hyperglycemia (6) Essential hypertension Current Visit: Yes Status: Chronic Assessment and plan: Blood pressure is well controlled at this time. Continue home medications as tolerated (7) Acute kidney injury Current Visit: Yes Status: Acute Assessment and plan: Recheck labs tomorrow. Avoid nephrotoxins. - Time Spent With Patient Total time spent is greater than 50% in coordination of care (as documented) at patient's floor/unit and/or counseling patient: - Subjective Interval history: Ms Pruitt is currently admitted for acute perforated appendicitis s/p OR yesterday as well as COPD exacerbation. She remains moderate to high risk due to potential for worsening clinical status. Ms Pruitt is having some pain in her abdomen. She says she cannot stand due to weakness. No fever or chills. Tolerating clear liquids. Breathing doing a little better today. No CP. - Constitutional Vitals: Temp Pulse Resp BP Pulse Ox 97.9 F 100 20 91/52 94 12/13/17 10:53 12/13/17 10:53 12/13/17 10:53 12/13/17 10:53 12/13/17 10:53 General appearance: Present: cooperative, A&O X 3, answers questions appropriately - Head Head exam: Present: normocephalic - Eye Eye exam: Present: conjuntiva pink - ENT ENT exam: Present: mucous membranes dry - Respiratory Respiratory exam: Present: rhonchi, wheezes - Cardiovascular Cardiovascular exam: Present: RRR. Absent: tachycardia - GI/Abdominal GI/Abdominal exam: Present: soft, tenderness - Extremities Exam Extremities exam: Present: warm. Absent: tenderness - Neurological Exam Neurological exam: Present: alert, oriented X3, no focal deficits - Skin Skin exam: Present: dry, warm Internal Medicine: Result - Labs CBC & Chem 7: 12/12/17 11:57 12/12/17 11:57 - ABG Interpretation ABG results: ABG ABG pH 7.39 pH Units (7.32-7.45) 12/12/17 11:44 ABG pCO2 66 mmHg (35-45) H 12/12/17 11:44 ABG pO2 176 mmHg (85-104) H 12/12/17 11:44 ABG O2 Saturation 100 % (95-98) H 12/12/17 11:44 - VTE Documentation of Mechanical Device: Intermittent pneumatic compression device Consult Discharge Plan - Plan Referrals: Rubén Olivia DO [Primary Care Provider] -
[2017-12-13] MEDS: *HR* OxyCODONE/APAP 5/325 TABLET PO PRN (18:54)
[2017-12-13] MEDS: Budesonide/Formoterol 80/4.5 MDI IH SCH (20:27)
[2017-12-13] MEDS: Ipratropium/Albuterol Neb 3 ML IH PRN (20:28)
[2017-12-14] MEDS: Insulin LISPRO 300 UNITS/3 ML VIAL SQ SCH ×6 (00:17→23:09)
[2017-12-14] MEDS: Piperacillin/Tazobactam 3.375 GM in 0.9 % Sodium Chloride Mini Bag 100 ML IVPB SCH ×3 (00:18→17:00)
[2017-12-14] MEDS: 0.9 % Sodium Chloride 1,000 ML IVC SCH ×2 (00:19→19:30)
[2017-12-14] MEDS: *HR* OxyCODONE/APAP 5/325 TABLET PO PRN (00:22)
[2017-12-14] MEDS: *HR* Heparin 5,000 UNIT/ML VIAL SQ SCH ×2 (06:00→16:59)
[2017-12-14 06:14] LABS: Calcium 8.1 mg/dL (8.6-10.3); Magnesium 1.9 mg/dL (1.6-2.6); Potassium 3.8 mEq/L (3.5-5.1)
[2017-12-14 07:04] LABS: Hematocrit 25.2 % (35.3-44.9); Hemoglobin 7.9 g/dL (11.5-15.4); Mean Corpuscular HGB Conc 31.3 g/dL (31.6-35.5); Mean Corpuscular Hemoglobin 30.3 pg (28.0-33.3); Mean Corpuscular Volume 96.6 fL (83.0-100.0); Mean Platelet Volume 11.6 fL (9.4-12.4); Platelet Count 171 K/mcL (140-400); Red Blood Count 2.61 M/mcL (3.82-4.97); Red Cell Distribution Width 13.2 % (11.5-14.5)
[2017-12-14] MEDS: Doxycycline 100 MG in 0.9 % Sodium Chloride Mini Bag 100 ML IVPB SCH ×2 (07:10→23:08)
[2017-12-14] MEDS ORDERED: Insulin LISPRO 300 UNITS/3 ML VIAL SQ SCH (08:00)
[2017-12-14] MEDS: OXYCODONE Oral CONC 10 MG/0.5 ML ORAL.SYG SL PRN (09:25)
[2017-12-14] MEDS: Budesonide/Formoterol 80/4.5 MDI IH SCH ×2 (10:02→19:47)
[2017-12-14] MEDS: Pantoprazole 40 MG VIAL IVP SCH (10:19)
--- NOTE | 2017-12-14 11:01 | General Surgery Progress Note ---
<Sada Degroot - Last Filed: 12/14/17 11:12> Date of Encounter: 12/14/17 Time of Encounter: 11:00 - Assessment and Plan (1) Acute perforated appendicitis Current Visit: Yes Status: Acute Date of procedure: 12/12/17 Pre-op diagnosis: Ruptured acute appendicitis Post-op diagnosis: same Procedure: #1 laparoscopic appendectomy #2 drainage of intra-abdominal abscess POD#2 as above Supportive care and discomfort management add Ofirmev times 1 dose. May reorder as needed with less than 4G Acetaminophen daily -also on Percocet) Add miralax encourage ambulation as tolerated out of bed to chair for all meals avoid nephrotoxic since given acute kidney injury; management per primary team. repeat a.m. labs recommend continue hospital care for at least another 24 hours for IV antibiotics Subjective Patient reports: feels better, still having pain, pain is less, tolerating liquids well, tolerating a regular diet, voiding w/o difficulty, no flatus, no bowel movement, shortness of breath Narrative: She states her abdominal discomfort is improving each day and remains sore. Her symptoms prior to surgery of completely resolved. She states she feels weak and is unable to ambulate by herself at this time. Objective Vital Signs - Last 8 Hours Temp Pulse Resp BP Pulse Ox 12/14/17 08:01 97.9 F 97 18 116/69 93 Intake and Output 12/13/17 12/14/17 12/14/17 23:59 07:59 15:59 Intake Total 400 / 400 1100 / 1100 120 / 120 Output Total 300 / 300 0 / 0 Balance 100 / 100 1100 / 1100 120 / 120 Intake: IV Fluids 200 / 200 1100 / 1100 0.9 % Sodium Chloride 1,000 ML 1000 / 1000 @ 75 mls/hr IVC .[id number] [facility] Rx #:[id number] Doxycycline 100 MG In 0.9 % 100 / 100 Sodium Chloride (Mini-Bag +) 100 ML @ 100 mls/hr IVPB Q12H [facility] Rx#:[id number] Zosyn 3.375 GM In 0.9 % Sodium 100 / 100 100 / 100 Chloride (Mini-Bag +) 100 ML @ 25 mls/hr IVPB Q8HR [facility] Rx#: [id number] Oral 200 / 200 0 / 0 120 / 120 Output: Urine 300 / 300 0 / 0 Other: Meal Dinner Breakfast Percent of Meal Consumed 0% 25% # Voids 1 Weight 102.8 kg Blood Glucose* 128 131 130 VITAL SIGNS: Reviewed. See [facility] GENERAL: In no apparent distress. HEENT: Normocephalic, atraumatic, pupils are equal and reactive, extraocular motions intact, oropharynx is pink and moist, there is no neck adenopathy or JVD noted. CHEST/RESPIRATORY: The thorax is free from signs of trauma. Lung sounds: decreased respiratory effort. Oxygen per nasal cannula noted. CARDIAC: Regular rate and rhythm. Normal S1 and S2, without murmurs, gallops, or rubs. VASCULAR: generalized Edema. 2+ peripheral pulses. ABDOMEN: obese, soft, hypoactive bowel sounds, expected postoperative tenderness INCISION: Surgical incision is clean, dry, and intact. There are no signs of infection noted. There is a very small amount of erythema at the superior most incision. MUSCULOSKELETAL: generalized deconditioning noted. NEUROLOGIC EXAM: Alert and oriented x 3. Speech normal. Follows commands. PSYCHIATRIC: Mood normal. SKIN: No rash or lesions. - Labs 12/14/17 06:36 12/14/17 05:40 Diabetes panel 12/14/17 Range/Units 05:40 Sodium 138 (136-145) mEq/L Potassium 3.8 (3.5-5.1) mEq/L Chloride 101 (98-107) mEq/L Carbon Dioxide 31 H (23-29) mEq/L BUN 40 H (8-23) mg/dL Creatinine 1.47 H (0.60-1.20) mg/dL Glucose 123 H (70-105) mg/dL Calcium 8.1 L (8.6-10.3) mg/dL Calcium panel 12/14/17 Range/Units 05:40 Calcium 8.1 L (8.6-10.3) mg/dL Pituitary panel 12/14/17 Range/Units 05:40 Sodium 138 (136-145) mEq/L Potassium 3.8 (3.5-5.1) mEq/L Chloride 101 (98-107) mEq/L Carbon Dioxide 31 H (23-29) mEq/L BUN 40 H (8-23) mg/dL Creatinine 1.47 H (0.60-1.20) mg/dL Glucose 123 H (70-105) mg/dL Calcium 8.1 L (8.6-10.3) mg/dL Adrenal panel 12/14/17 Range/Units 05:40 Sodium 138 (136-145) mEq/L Potassium 3.8 (3.5-5.1) mEq/L Chloride 101 (98-107) mEq/L Carbon Dioxide 31 H (23-29) mEq/L BUN 40 H (8-23) mg/dL Creatinine 1.47 H (0.60-1.20) mg/dL Glucose 123 H (70-105) mg/dL Calcium 8.1 L (8.6-10.3) mg/dL - VTE Documentation of Mechanical Device: Intermittent pneumatic compression device Consult Discharge Plan - Plan Referrals: Rubén Olivia, [Primary Care Provider] - <Claudio Montes De Oca - Last Filed: 12/14/17 13:38> Date of Encounter: 12/14/17 - Assessment and Plan (1) Acute perforated appendicitis Current Visit: Yes Status: Acute Objective Vital Signs - Last 8 Hours Temp Pulse Resp BP Pulse Ox 12/14/17 11:31 97.9 F 102 18 135/84 99 12/14/17 08:01 97.9 F 97 18 116/69 93 12/14/17 08:00 96 Intake and Output 12/13/17 12/14/17 12/14/17 23:59 07:59 15:59 Intake Total 400 / 400 1100 / 1100 460 / 460 Output Total 300 / 300 0 / 0 Balance 100 / 100 1100 / 1100 460 / 460 Intake: IV Fluids 200 / 200 1100 / 1100 100 / 100 0.9 % Sodium Chloride 1,000 ML 1000 / 1000 @ 75 mls/hr IVC .[id number] [facility] Rx #:[id number] Doxycycline 100 MG In 0.9 % 100 / 100 100 / 100 Sodium Chloride (Mini-Bag +) 100 ML @ 100 mls/hr IVPB Q12H [facility] Rx#:[id number] Zosyn 3.375 GM In 0.9 % Sodium 100 / 100 100 / 100 Chloride (Mini-Bag +) 100 ML @ 25 mls/hr IVPB Q8HR [facility] Rx#: [id number] Oral 200 / 200 0 / 0 360 / 360 Output: Urine 300 / 300 0 / 0 Other: Meal Dinner Lunch Percent of Meal Consumed 0% 50% # Voids 1 Weight 102.8 kg Blood Glucose* 128 131 160 - Labs 12/14/17 06:36 12/14/17 05:40 Diabetes panel 12/14/17 Range/Units 05:40 Sodium 138 (136-145) mEq/L Potassium 3.8 (3.5-5.1) mEq/L Chloride 101 (98-107) mEq/L Carbon Dioxide 31 H (23-29) mEq/L BUN 40 H (8-23) mg/dL Creatinine 1.47 H (0.60-1.20) mg/dL Glucose 123 H (70-105) mg/dL Calcium 8.1 L (8.6-10.3) mg/dL Calcium panel 12/14/17 Range/Units 05:40 Calcium 8.1 L (8.6-10.3) mg/dL Pituitary panel 12/14/17 Range/Units 05:40 Sodium 138 (136-145) mEq/L Potassium 3.8 (3.5-5.1) mEq/L Chloride 101 (98-107) mEq/L Carbon Dioxide 31 H (23-29) mEq/L BUN 40 H (8-23) mg/dL Creatinine 1.47 H (0.60-1.20) mg/dL Glucose 123 H (70-105) mg/dL Calcium 8.1 L (8.6-10.3) mg/dL Adrenal panel 12/14/17 Range/Units 05:40 Sodium 138 (136-145) mEq/L Potassium 3.8 (3.5-5.1) mEq/L Chloride 101 (98-107) mEq/L Carbon Dioxide 31 H (23-29) mEq/L BUN 40 H (8-23) mg/dL Creatinine 1.47 H (0.60-1.20) mg/dL Glucose 123 H (70-105) mg/dL Calcium 8.1 L (8.6-10.3) mg/dL - Attending Attestation I have personally performed a face to face evaluation on this patient. I have reviewed and agree with the care plan. History and Exam by me shows: The patient is seen and evaluated on morning rounds. She is afebrile. She has much less abdominal pain. I recommended 4-5 days of IV antibiotics because of intra-abdominal abscess. She should make a full recovery. Her pulmonary status is back to baseline.
[2017-12-14] MEDS ORDERED: Acetaminophen IV 1,000 MG/100 ML INFUS..BTL IVPB ONE (11:09)
--- NOTE | 2017-12-14 17:48 | Internal Med Progress Note ---
Date of Encounter: 12/14/17 Time of Encounter: 14:30 - Assessment and plan (1) COPD exacerbation Current Visit: Yes Status: Acute Assessment and plan: Breathing improving with current treatment Continue aerosols, oxygen and supportive care. (2) Acute perforated appendicitis Current Visit: Yes Status: Acute Assessment and plan: Currently on IV abx. Will need for 4-5 days. (3) Pneumonia Current Visit: Yes Status: Ruled-out Assessment and plan: Repeat CXR negative at this time. Qualifiers: Pneumonia type: due to Pneumococcus Laterality: left Lung location: lower lobe of lung Qualified Code(s): J13 - Pneumonia due to Streptococcus pneumoniae (4) Sepsis Current Visit: Yes Status: Suspected Assessment and plan: Continue antibiotics to treat appendicitis. Follow culture results. Qualifiers: Sepsis type: Escherichia coli Qualified Code(s): A41.51 - Sepsis due to Escherichia coli [E. coli] (5) Diabetes mellitus, type 2 Current Visit: Yes Status: Chronic Assessment and plan: Monitor blood sugars. Remains uncontrolled. Continue coverage. Qualifiers: Diabetes mellitus longterm insulin use: without stranner use Diabetes mellitus complication status: with hyperglycemia Qualified Code(s): E11.65 - Type 2 diabetes mellitus with hyperglycemia (6) Essential hypertension Current Visit: Yes Status: Chronic Assessment and plan: Blood pressure is well controlled at this time. Continue home medications as tolerated (7) Acute kidney injury Current Visit: Yes Status: Acute Assessment and plan: Remains elevated. Appears euvolemic. Most likely related to sepsis. Recheck tomorrow. - Time Spent With Patient Total time spent is greater than 50% in coordination of care (as documented) at patient's floor/unit and/or counseling patient: - Subjective Interval history: Ms Pruitt is currently admitted for acute perforated appendicitis s/p OR yesterday as well as COPD exacerbation. She remains moderate to high risk due to potential for worsening clinical status. Ms Pruitt is tired but doing better breathing. Pain controlled at this time. Currently on IV abx to cover abscess. No fever or chills. Working on d/c to SNF later this week. - Constitutional Vitals: Temp Pulse Resp BP Pulse Ox 97.4 F L 97 16 142/89 97 12/14/17 15:00 12/14/17 15:00 12/14/17 15:00 12/14/17 15:00 12/14/17 15:00 General appearance: Present: cooperative, A&O X 3, answers questions appropriately - Head Head exam: Present: normocephalic - Eye Eye exam: Present: conjuntiva pink - ENT ENT exam: Present: mucous membranes dry - Respiratory Respiratory exam: Present: decreased breath sounds. Absent: rhonchi, wheezes - Cardiovascular Cardiovascular exam: Present: RRR. Absent: tachycardia - GI/Abdominal GI/Abdominal exam: Present: soft - Extremities Exam Extremities exam: Present: warm. Absent: tenderness - Neurological Exam Neurological exam: Present: alert, oriented X3 - Skin Skin exam: Present: dry, warm Internal Medicine: Result - Labs CBC & Chem 7: 12/14/17 06:36 12/14/17 05:40 Labs: Short CBC 12/14/17 Range/Units 06:36 WBC 20.7 H (4.3-11.1) K/mcL Hgb 7.9 L (11.5-15.4) g/dL Hct 25.2 L (35.3-44.9) % Plt Count 171 (140-400) K/mcL BMP 12/14/17 05:40 Sodium 138 Potassium 3.8 Chloride 101 Carbon Dioxide 31 H BUN 40 H Creatinine 1.47 H Glucose 123 H Calcium 8.1 L - ABG Interpretation ABG results: ABG ABG pH 7.39 pH Units (7.32-7.45) 12/12/17 11:44 ABG pCO2 66 mmHg (35-45) H 12/12/17 11:44 ABG pO2 176 mmHg (85-104) H 12/12/17 11:44 ABG O2 Saturation 100 % (95-98) H 12/12/17 11:44 - Impressions Impressions Chest X-Ray 12/14/17 10:00 IMPRESSION: No acute process. D/ / Tristin Arroyo MD / Tristin Arroyo MD Interpreting Provider: Tristin Arroyo MD - VTE Documentation of Mechanical Device: Intermittent pneumatic compression device Consult Discharge Plan - Plan Referrals: Rubén Olivia DO [Primary Care Provider] -
[2017-12-14] MEDS: Ipratropium/Albuterol Neb 3 ML IH PRN (19:50)
[2017-12-15] MEDS: Piperacillin/Tazobactam 3.375 GM in 0.9 % Sodium Chloride Mini Bag 100 ML IVPB SCH ×4 (00:26→23:48)
[2017-12-15] MEDS: *HR* Heparin 5,000 UNIT/ML VIAL SQ SCH ×2 (06:00→18:28)
[2017-12-15 06:07] LABS: Basophils % 0.2 %; Hematocrit 24.9 % (35.3-44.9); Hemoglobin 7.6 g/dL (11.5-15.4); Immature Granulocytes % 2.5 % (0-4); Lymphocytes # 0.8 K/mcL (0.6-4.6); Lymphocytes % 4.4 %; Mean Corpuscular HGB Conc 30.5 g/dL (31.6-35.5); Mean Corpuscular Hemoglobin 28.8 pg (28.0-33.3); Mean Corpuscular Volume 94.3 fL (83.0-100.0); Mean Platelet Volume 11.1 fL (9.4-12.4); Monocytes # 0.5 K/mcL (0.0-1.3); Monocytes % 2.9 %; Neutrophils # 16.7 K/mcL (1.6-8.9); Platelet Count 210 K/mcL (140-400); Red Blood Count 2.64 M/mcL (3.82-4.97); Red Cell Distribution Width 13.2 % (11.5-14.5)
[2017-12-15 06:11] LABS: Potassium 4.4 mEq/L (3.5-5.1)
[2017-12-15] MEDS: Budesonide/Formoterol 80/4.5 MDI IH SCH ×3 (07:28→21:24)
[2017-12-15] MEDS: Insulin LISPRO 300 UNITS/3 ML VIAL SQ SCH ×4 (09:03→20:06)
[2017-12-15] MEDS: Doxycycline 100 MG in 0.9 % Sodium Chloride Mini Bag 100 ML IVPB SCH ×2 (09:04→20:16)
--- NOTE | 2017-12-15 10:03 | General Surgery Progress Note ---
Date of Encounter: 12/15/17 Time of Encounter: 10:01 - Assessment and Plan (1) Acute perforated appendicitis Current Visit: Yes Status: Acute Date of procedure: 12/12/17 Pre-op diagnosis: Ruptured acute appendicitis Post-op diagnosis: same Procedure: #1 laparoscopic appendectomy #2 drainage of intra-abdominal abscess POD#3 as above Supportive care and discomfort management Continue miralax encourage ambulation as tolerated out of bed to chair for all meals avoid nephrotoxic since given acute kidney injury; management per primary team. Can transition to po antibiotics when ready per primary team (from a surgical standpoint Augmentin, or fluoroquinolone/flagyl would provide coverage for appy) Surgery will sign off at this time. Thank you for allowing us to participate in Miss Pruitt' care. Please call or reconsult for any further questions or needs. Subjective Patient reports: no new complaints, feels better, still having pain, pain is less, tolerating a regular diet, voiding w/o difficulty, flatus, no bowel movement, afebrile Objective Vital Signs - Last 8 Hours Temp Pulse Resp BP Pulse Ox 12/15/17 08:15 95 12/15/17 07:29 20 95 12/15/17 07:22 98.0 F 96 18 182/71 96 12/15/17 04:13 98.2 F 82 16 157/94 98 Intake and Output 12/14/17 12/15/17 12/15/17 23:59 07:59 15:59 Intake Total 0 / 0 300 / 300 240 / 240 Output Total 150 / 150 Balance -150 / -150 300 / 300 240 / 240 Intake: IV Fluids 300 / 300 Doxycycline 100 MG In 0.9 % 100 / 100 Sodium Chloride (Mini-Bag +) 100 ML @ 100 mls/hr IVPB Q12H [facility] Rx#:[id number] Zosyn 3.375 GM In 0.9 % Sodium 200 / 200 Chloride (Mini-Bag +) 100 ML @ 25 mls/hr IVPB Q8HR [facility] Rx#: [id number] Oral 0 / 0 0 / 0 240 / 240 Output: Urine 150 / 150 Other: Meal Dinner Breakfast Percent of Meal Consumed 0% 10% # Voids 1 1 Weight 109.8 kg Blood Glucose* 171 210 Patient Weight 12/15/17 23:59 Weight 109.8 kg VITAL SIGNS: Reviewed. See [employer] GENERAL: In no apparent distress. Sitting upright in chair at edge of bed HEENT: Normocephalic, atraumatic, pupils are equal and reactive, extraocular motions intact, oropharynx is pink and moist, there is no neck adenopathy or JVD noted. CHEST/RESPIRATORY: The thorax is free from signs of trauma. Lung sounds: decreased tight CARDIAC: Regular rate and rhythm. Normal S1 and S2, without murmurs, gallops, or rubs. VASCULAR: No Edema. 2+ peripheral pulses. ABDOMEN: soft, expected postoperative tenderness, hypoactive bowel sounds INCISION: Surgical incision is clean, dry, and intact. There are no signs of cellulitis or infection noted. MUSCULOSKELETAL: general deconditioning noted. NEUROLOGIC EXAM: Alert and oriented x 3. Speech normal. Follows commands. PSYCHIATRIC: Mood normal. SKIN: No rash or lesions. - Labs 12/15/17 05:37 12/15/17 05:37 Diabetes panel 12/15/17 Range/Units 05:37 Sodium 141 (136-145) mEq/L Potassium 4.4 (3.5-5.1) mEq/L Chloride 103 (98-107) mEq/L Carbon Dioxide 30 H (23-29) mEq/L BUN 31 H (8-23) mg/dL Creatinine 1.10 (0.60-1.20) mg/dL Glucose 219 H (70-105) mg/dL Calcium 9.0 (8.6-10.3) mg/dL Calcium panel 12/15/17 Range/Units 05:37 Calcium 9.0 (8.6-10.3) mg/dL Pituitary panel 12/15/17 Range/Units 05:37 Sodium 141 (136-145) mEq/L Potassium 4.4 (3.5-5.1) mEq/L Chloride 103 (98-107) mEq/L Carbon Dioxide 30 H (23-29) mEq/L BUN 31 H (8-23) mg/dL Creatinine 1.10 (0.60-1.20) mg/dL Glucose 219 H (70-105) mg/dL Calcium 9.0 (8.6-10.3) mg/dL Adrenal panel 12/15/17 Range/Units 05:37 Sodium 141 (136-145) mEq/L Potassium 4.4 (3.5-5.1) mEq/L Chloride 103 (98-107) mEq/L Carbon Dioxide 30 H (23-29) mEq/L BUN 31 H (8-23) mg/dL Creatinine 1.10 (0.60-1.20) mg/dL Glucose 219 H (70-105) mg/dL Calcium 9.0 (8.6-10.3) mg/dL - VTE Documentation of Mechanical Device: Intermittent pneumatic compression device Consult Discharge Plan - Plan Instructions: Laparoscopic Appendectomy (DC) Additional Instructions: General Surgical Discharge Instructions 1. No pushing, pulling, or lifting greater than 15 lbs for 2-4 weeks (depending upon procedure). 2. You may shower beginning today, but no tub baths, soaking, or swimming for 2 weeks. 3. You may resume driving when you are off narcotics and are safe to react in a car. 4. Take ibuprofen every 8 hours for discomfort. If this does not relieve discomfort, you may take the as needed Percocet. Take narcotics as directed. Do not take more narcotics then directed and do not share your narcotics with any other person. Do not drink alcohol while on narcotics. 5. Take stool softeners (Colace) or a water based laxative (Miralax) while taking narcotics. You may hold for loose stools. 6. Report any fevers greater than 100.5F, increase abdominal discomfort, drainage that looks like pus, increased redness or pain at the surgical site, or any vomiting. 7. Report any pain in the calves, shortness of breath, or rapid heartbeat. 8. Follow-up in the office as directed. 9. If you were prescribed antibiotics, do not stop them without talking to your provider. Referrals: Rubén Olivia DO [Primary Care Provider] - Lesly Caballero CNP [Advanced Practice Nurse] - 12/28/17 10:15 am
[2017-12-15] MEDS: Lisinopril-HCTZ 20-12.5mg TABLET PO SCH (10:27)
[2017-12-15] MEDS: Furosemide 40 MG TABLET PO SCH (10:28)
--- NOTE | 2017-12-15 16:41 | Internal Med Progress Note ---
Date of Encounter: 12/15/17 Time of Encounter: 14:00 - Assessment and plan (1) COPD exacerbation Current Visit: Yes Status: Acute Assessment and plan: Slowly improving to baseline. Continue current management. (2) Acute perforated appendicitis Current Visit: Yes Status: Acute Assessment and plan: Currently on IV abx. Will need for 4-5 days. Pain appears to be doing OK at this time. (3) Anemia Current Visit: No Status: Chronic Assessment and plan: Pt has some baseline anemia due to chronic disease. Lower than baseline. Asymptomatic at this time. Recheck tomorrow and may need to transfuse. Qualifiers: Anemia type: other cause Other causes of anemia: acute posthemorrhagic Qualified Code(s): D62 - Acute posthemorrhagic anemia (4) Sepsis Current Visit: Yes Status: Resolved Assessment and plan: Continue antibiotics to treat appendicitis. No cultures noted. Monitor WBC. Qualifiers: Sepsis type: Escherichia coli Qualified Code(s): A41.51 - Sepsis due to Escherichia coli [E. coli] (5) Diabetes mellitus, type 2 Current Visit: Yes Status: Chronic Assessment and plan: Monitor blood sugars. Remains uncontrolled. Will adjust meds today. Qualifiers: Diabetes mellitus assisted insulin use: without ferry terminal agent use Diabetes mellitus complication status: with hyperglycemia Qualified Code(s): E11.65 - Type 2 diabetes mellitus with hyperglycemia (6) Essential hypertension Current Visit: Yes Status: Chronic Assessment and plan: Blood pressure is not as controlled at this time. Will evaluate meds and adjust. (7) Acute kidney injury Current Visit: Yes Status: Resolved - Time Spent With Patient Total time spent is greater than 50% in coordination of care (as documented) at patient's floor/unit and/or counseling patient: - Subjective Interval history: Ms Pruitt is currently admitted for acute perforated appendicitis s/p OR yesterday as well as COPD exacerbation. She remains moderate to high risk due to potential for worsening clinical status. Ms Pruitt is watching soap operas. She feels her pain is fairly controlled. Her breathing is doing OK at this time. She is able to lie flat. No fever or chills. Tolerating IV abx. WBC still elevated but slowly decreasing. - Constitutional Vitals: Temp Pulse Resp BP Pulse Ox 98.5 F 87 16 140/79 99 12/15/17 15:00 12/15/17 15:00 12/15/17 15:00 12/15/17 15:00 12/15/17 15:00 General appearance: Present: cooperative, A&O X 3, answers questions appropriately - Head Head exam: Present: normocephalic - Eye Eye exam: Present: conjuntiva pink - ENT ENT exam: Present: mucous membranes moist - Respiratory Respiratory exam: Present: decreased breath sounds. Absent: rales, rhonchi, wheezes - Cardiovascular Cardiovascular exam: Present: RRR. Absent: tachycardia - GI/Abdominal GI/Abdominal exam: Present: soft, tenderness - Extremities Exam Extremities exam: Present: warm. Absent: tenderness - Neurological Exam Neurological exam: Present: alert, oriented X3 - Skin Skin exam: Present: dry, warm Internal Medicine: Result - Labs CBC & Chem 7: 12/15/17 05:37 12/15/17 05:37 Labs: Short CBC 12/15/17 Range/Units 05:37 WBC 18.6 H (4.3-11.1) K/mcL Hgb 7.6 L (11.5-15.4) g/dL Hct 24.9 L (35.3-44.9) % Plt Count 210 (140-400) K/mcL Neutrophils # 16.7 H (1.6-8.9) K/mcL BMP 12/15/17 05:37 Sodium 141 Potassium 4.4 Chloride 103 Carbon Dioxide 30 H BUN 31 H Creatinine 1.10 Glucose 219 H Calcium 9.0 - ABG Interpretation ABG results: ABG ABG pH 7.39 pH Units (7.32-7.45) 12/12/17 11:44 ABG pCO2 66 mmHg (35-45) H 12/12/17 11:44 ABG pO2 176 mmHg (85-104) H 12/12/17 11:44 ABG O2 Saturation 100 % (95-98) H 12/12/17 11:44 - VTE Documentation of Mechanical Device: Intermittent pneumatic compression device Consult Discharge Plan - Plan Instructions: Laparoscopic Appendectomy (DC) Additional Instructions: General Surgical Discharge Instructions 1. No pushing, pulling, or lifting greater than 15 lbs for 2-4 weeks (depending upon procedure). 2. You may shower beginning today, but no tub baths, soaking, or swimming for 2 weeks. 3. You may resume driving when you are off narcotics and are safe to react in a car. 4. Take ibuprofen every 8 hours for discomfort. If this does not relieve discomfort, you may take the as needed Percocet. Take narcotics as directed. Do not take more narcotics then directed and do not share your narcotics with any other person. Do not drink alcohol while on narcotics. 5. Take stool softeners (Colace) or a water based laxative (Miralax) while taking narcotics. You may hold for loose stools. 6. Report any fevers greater than 100.5F, increase abdominal discomfort, drainage that looks like pus, increased redness or pain at the surgical site, or any vomiting. 7. Report any pain in the calves, shortness of breath, or rapid heartbeat. 8. Follow-up in the office as directed. 9. If you were prescribed antibiotics, do not stop them without talking to your provider. Referrals: Rubén Olivia DO [Primary Care Provider] - Lesly Caballero CNP [Advanced Practice Nurse] - 12/28/17 10:15 am
[2017-12-15] MEDS ORDERED: OXYGEN NS SCH (17:00)
[2017-12-15] MEDS: Insulin DETEMIR 100 UNIT/ML X5UNITS SQ SCH (20:17)
[2017-12-15] MEDS: Ipratropium/Albuterol Neb 3 ML IH PRN (21:27)
[2017-12-16] MEDS: Ipratropium/Albuterol Neb 3 ML IH PRN ×3 (03:58→21:12)
[2017-12-16 05:10] LABS: Hematocrit 23.3 % (35.3-44.9); Hemoglobin 7.4 g/dL (11.5-15.4); Mean Corpuscular HGB Conc 31.8 g/dL (31.6-35.5); Mean Corpuscular Volume 91.4 fL (83.0-100.0); Mean Platelet Volume 10.9 fL (9.4-12.4); Platelet Count 225 K/mcL (140-400); Red Blood Count 2.55 M/mcL (3.82-4.97); Red Cell Distribution Width 13.2 % (11.5-14.5)
[2017-12-16 05:36] LABS: BUN/Creatinine Ratio 26 (6-26); Blood Urea Nitrogen 27 mg/dL (8-23); Calcium 9.3 mg/dL (8.6-10.3); Carbon Dioxide 33 mEq/L (23-29); Chloride 99 mEq/L (98-107); Glucose 197 mg/dL (70-105); Osmolality,Calculated 301 (280-300); Potassium 3.3 mEq/L (3.5-5.1); Sodium 140 mEq/L (136-145); eGFR For African Americans > 60 (> 60); eGFR For Non-African Americans 53 (> 60)
[2017-12-16] MEDS: *HR* Heparin 5,000 UNIT/ML VIAL SQ SCH ×2 (06:18→17:36)
[2017-12-16] MEDS: Furosemide 40 MG TABLET PO SCH (08:35)
[2017-12-16] MEDS: Lisinopril-HCTZ 20-12.5mg TABLET PO SCH (08:35)
[2017-12-16] MEDS: amLODIPine 5 MG TABLET PO SCH (08:35)
[2017-12-16] MEDS: Insulin DETEMIR 100 UNIT/ML X5UNITS SQ SCH ×2 (08:36→22:00)
[2017-12-16] MEDS: Insulin LISPRO 300 UNITS/3 ML VIAL SQ SCH ×4 (08:37→22:00)
[2017-12-16] MEDS: Doxycycline 100 MG in 0.9 % Sodium Chloride Mini Bag 100 ML IVPB SCH ×2 (08:38→23:41)
[2017-12-16] MEDS: Piperacillin/Tazobactam 3.375 GM in 0.9 % Sodium Chloride Mini Bag 100 ML IVPB SCH (10:08)
[2017-12-16] MEDS: Budesonide/Formoterol 80/4.5 MDI IH SCH ×3 (11:28→21:12)
--- NOTE | 2017-12-16 13:12 | Internal Med Progress Note ---
Date of Encounter: 12/16/17 Time of Encounter: 13:05 - Assessment and plan (1) COPD exacerbation Current Visit: Yes Status: Acute Assessment and plan: More dyspneic today but probably related to anemia. Continue abx and aerosols. Do not feel need for steroids at this time. (2) Acute perforated appendicitis Current Visit: Yes Status: Acute Assessment and plan: Currently on IV abx. Has some persistent leukocytosis that may need further investigation. Pain appears to be doing OK at this time. (3) Anemia Current Visit: No Status: Chronic Assessment and plan: Pt has some baseline anemia due to chronic disease. H/H lower today. Will transfuse 2 units and reassess tomorrow. Qualifiers: Anemia type: other cause Other causes of anemia: acute posthemorrhagic Qualified Code(s): D62 - Acute posthemorrhagic anemia (4) Diabetes mellitus, type 2 Current Visit: Yes Status: Chronic Assessment and plan: Monitor blood sugars. Little better but still uncontrolled. 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 Adjust meds. (6) Hypokalemia Current Visit: Yes Status: Acute Assessment and plan: New today. Replace and recheck tomorrow. (7) Leukocytosis Current Visit: Yes Status: Acute Assessment and plan: May be a chronic issue. Recheck tomorrow. May need further evaluation. Qualifiers: Leukocytosis type: unspecified Qualified Code(s): D72.829 - Elevated white blood cell count, unspecified - Time Spent With Patient Total time spent is greater than 50% in coordination of care (as documented) at patient's floor/unit and/or counseling patient: - Subjective Interval history: Ms Pruitt is currently admitted for acute perforated appendicitis s/p OR yesterday as well as COPD exacerbation. She remains moderate to high risk due to potential for worsening clinical status. Ms Pruitt feels very tired and somewhat more dyspneic today. No fever or chills. Has not had much appetite - says food is salty. Ate a little of eggs from home this AM. Denies worsening of pain. Says it is "hot" in the room. Feels dyspnea is due to anemia - has hx of anemia and sees Dr. Gutierrez. - Constitutional Vitals: Temp Pulse Resp BP Pulse Ox 98.7 F 90 24 167/94 98 12/16/17 11:28 12/16/17 11:28 12/16/17 11:30 12/16/17 11:28 12/16/17 11:30 General appearance: Present: cooperative, A&O X 3, answers questions appropriately - Head Head exam: Present: normocephalic - Eye Eye exam: Present: conjuntiva pink - ENT ENT exam: Present: mucous membranes moist - Respiratory Respiratory exam: Present: decreased breath sounds. Absent: rales, rhonchi, wheezes - Cardiovascular Cardiovascular exam: Present: RRR. Absent: tachycardia - GI/Abdominal GI/Abdominal exam: Present: soft, tenderness, no peritoneal signs - Extremities Exam Extremities exam: Present: warm. Absent: tenderness - Neurological Exam Neurological exam: Present: alert, oriented X3 - Skin Skin exam: Present: dry, warm. Absent: rash Internal Medicine: Result - Labs CBC & Chem 7: 12/16/17 04:29 12/16/17 04:29 Labs: Short CBC 12/16/17 Range/Units 04:29 WBC 17.3 H (4.3-11.1) K/mcL Hgb 7.4 L (11.5-15.4) g/dL Hct 23.3 L (35.3-44.9) % Plt Count 225 (140-400) K/mcL BMP 12/16/17 04:29 Sodium 140 Potassium 3.3 L Chloride 99 Carbon Dioxide 33 H BUN 27 H Creatinine 1.03 Glucose 197 H Calcium 9.3 - ABG Interpretation ABG results: ABG ABG pH 7.39 pH Units (7.32-7.45) 12/12/17 11:44 ABG pCO2 66 mmHg (35-45) H 12/12/17 11:44 ABG pO2 176 mmHg (85-104) H 12/12/17 11:44 ABG O2 Saturation 100 % (95-98) H 12/12/17 11:44 - VTE Documentation of Mechanical Device: Intermittent pneumatic compression device Consult Discharge Plan - Plan Instructions: Laparoscopic Appendectomy (DC) Additional Instructions: General Surgical Discharge Instructions 1. No pushing, pulling, or lifting greater than 15 lbs for 2-4 weeks (depending upon procedure). 2. You may shower beginning today, but no tub baths, soaking, or swimming for 2 weeks. 3. You may resume driving when you are off narcotics and are safe to react in a car. 4. Take ibuprofen every 8 hours for discomfort. If this does not relieve discomfort, you may take the as needed Percocet. Take narcotics as directed. Do not take more narcotics then directed and do not share your narcotics with any other person. Do not drink alcohol while on narcotics. 5. Take stool softeners (Colace) or a water based laxative (Miralax) while taking narcotics. You may hold for loose stools. 6. Report any fevers greater than 100.5F, increase abdominal discomfort, drainage that looks like pus, increased redness or pain at the surgical site, or any vomiting. 7. Report any pain in the calves, shortness of breath, or rapid heartbeat. 8. Follow-up in the office as directed. 9. If you were prescribed antibiotics, do not stop them without talking to your provider. Referrals: Rubén Olivia DO [Primary Care Provider] - Lesly Caballero CNP [Advanced Practice Nurse] - 12/28/17 10:15 am
[2017-12-16] MEDS ORDERED: 0.9 % Sodium Chloride 500 ML ONE ×2 (14:29→18:49)
[2017-12-16] MEDS ORDERED: Furosemide 40 MG/4 ML VIAL IVP ONE (16:22)
[2017-12-16] MEDS ORDERED: Spironolactone 25 MG TABLET PO ONE (16:30)
[2017-12-17] MEDS ORDERED: Furosemide 40 MG/4 ML VIAL ONE (03:18)
[2017-12-17] MEDS: *HR* Heparin 5,000 UNIT/ML VIAL SQ SCH ×2 (05:16→17:22)
[2017-12-17 06:06] LABS: Basophils % 0.2 %; Eosinophils # 0.1 K/mcL (0.0-0.6); Eosinophils % 0.4 %; Hematocrit 36.7 % (35.3-44.9); Immature Granulocytes % 5.6 % (0-4); Lymphocytes % 9.6 %; Mean Corpuscular HGB Conc 32.7 g/dL (31.6-35.5); Mean Corpuscular Hemoglobin 29.6 pg (28.0-33.3); Mean Corpuscular Volume 90.4 fL (83.0-100.0); Mean Platelet Volume 11.4 fL (9.4-12.4); Monocytes # 1.6 K/mcL (0.0-1.3); Monocytes % 8.5 %; Neutrophils # 14.5 K/mcL (1.6-8.9); Nucleated Red Blood Cells 0.2 /100 WBC (0); Platelet Count 224 K/mcL (140-400); Red Blood Count 4.06 M/mcL (3.82-4.97); Red Cell Distribution Width 13.9 % (11.5-14.5); Segmented Neutrophils % 75.7 %
[2017-12-17 06:15] LABS: Lymphocytes # 1.8 K/mcL (0.6-4.6)
[2017-12-17 06:28] LABS: BUN/Creatinine Ratio 25 (6-26); Blood Urea Nitrogen 23 mg/dL (8-23); Calcium 9.8 mg/dL (8.6-10.3); Carbon Dioxide 33 mEq/L (23-29); Chloride 93 mEq/L (98-107); Glucose 163 mg/dL (70-105); Magnesium 1.9 mg/dL (1.6-2.6); Osmolality,Calculated 293 (280-300); Platelet Estimate Normal (Normal); Potassium 3.8 mEq/L (3.5-5.1); Sodium 138 mEq/L (136-145); Toxic Granulation Present (Not Present); eGFR For African Americans > 60 (> 60); eGFR For Non-African Americans 60 (> 60)
[2017-12-17] MEDS: amLODIPine 5 MG TABLET PO SCH (07:11)
[2017-12-17] MEDS: Furosemide 40 MG TABLET PO SCH (07:11)
[2017-12-17] MEDS: Lisinopril-HCTZ 20-12.5mg TABLET PO SCH (07:11)
[2017-12-17] MEDS: Doxycycline 100 MG in 0.9 % Sodium Chloride Mini Bag 100 ML IVPB SCH ×2 (07:12→20:30)
[2017-12-17] MEDS: Insulin LISPRO 300 UNITS/3 ML VIAL SQ SCH ×4 (07:47→20:42)
[2017-12-17] MEDS: Insulin DETEMIR 100 UNIT/ML X5UNITS SQ SCH ×2 (07:47→20:42)
[2017-12-17] MEDS: Budesonide/Formoterol 80/4.5 MDI IH SCH ×2 (08:15→20:17)
--- NOTE | 2017-12-17 08:29 | Internal Med Progress Note ---
Date of Encounter: 12/17/17 Time of Encounter: 08:20 - Assessment and plan (1) COPD exacerbation Current Visit: Yes Status: Acute Assessment and plan: Doing better since transfusion. Complete abx. No need for steroids at this time. (2) Acute perforated appendicitis Current Visit: Yes Status: Acute Assessment and plan: On PO abx at this time. WBC higher today. Will check CT abd and pelvis. Doubt ileus as she has good bowel sounds. (3) Anemia Current Visit: No Status: Chronic Assessment and plan: Improved after transfusion yesterday. Qualifiers: Anemia type: other cause Other causes of anemia: acute posthemorrhagic Qualified Code(s): D62 - Acute posthemorrhagic anemia (4) Diabetes mellitus, type 2 Current Visit: Yes Status: Chronic Assessment and plan: Fair control. Will keep insulin the same today. Qualifiers: Diabetes mellitus skilled nursing insulin use: without skilled nursing use Diabetes mellitus complication status: with hyperglycemia Qualified Code(s): E11.65 - Type 2 diabetes mellitus with hyperglycemia (5) Essential hypertension Current Visit: Yes Status: Chronic Assessment and plan: Marked uncontrolled for patient. Will add spirinolactone. Continue same meds otherwise. (6) Hypokalemia Current Visit: Yes Status: Resolved Assessment and plan: Resolved today. (7) Leukocytosis Current Visit: Yes Status: Acute Assessment and plan: Higher today. Has not had BM. Will check CT chest/abd/pelvis today. Qualifiers: Leukocytosis type: unspecified Qualified Code(s): D72.829 - Elevated white blood cell count, unspecified - Time Spent With Patient Total time spent is greater than 50% in coordination of care (as documented) at patient's floor/unit and/or counseling patient: - Subjective Interval history: Ms Pruitt is currently admitted for acute perforated appendicitis s/p OR as well as COPD exacerbation. She remains moderate to high risk due to potential for worsening clinical status. Ms Pruitt is doing better after blood transfusion. No fever or chills. BP has been very high as well. She has no appetite. Bowels have not moved. No CP. Feels her breathing is at baseline. No cough. WBC is elevated more today as well. - Constitutional Vitals: Temp Pulse Resp BP Pulse Ox 98.3 F 87 16 174/114 98 12/17/17 07:12 12/17/17 07:12 12/17/17 08:15 12/17/17 07:12 12/17/17 08:15 General appearance: Present: cooperative, A&O X 3, answers questions appropriately - Head Head exam: Present: normocephalic - Eye Eye exam: Present: EOMI, conjuntiva pink - ENT ENT exam: Present: mucous membranes dry - Respiratory Respiratory exam: Present: decreased breath sounds, wheezes. Absent: rales, rhonchi - Cardiovascular Cardiovascular exam: Present: RRR. Absent: tachycardia - GI/Abdominal GI/Abdominal exam: Present: distended, normal bowel sounds, soft, tenderness Additional comments: Minimal RLQ discomfort. - Extremities Exam Extremities exam: Present: warm. Absent: tenderness - Neurological Exam Neurological exam: Present: alert, oriented X3 - Skin Skin exam: Present: dry, warm Internal Medicine: Result - Labs CBC & Chem 7: 12/17/17 05:50 12/17/17 05:50 Labs: Short CBC 12/17/17 Range/Units 05:50 WBC 19.2 H (4.3-11.1) K/mcL Hgb 12.0 D (11.5-15.4) g/dL Hct 36.7 (35.3-44.9) % Plt Count 224 (140-400) K/mcL Neutrophils # 14.5 H (1.6-8.9) K/mcL BMP 12/17/17 05:50 Sodium 138 Potassium 3.8 Chloride 93 L Carbon Dioxide 33 H BUN 23 Creatinine 0.93 Glucose 163 H Calcium 9.8 - ABG Interpretation ABG results: ABG ABG pH 7.39 pH Units (7.32-7.45) 12/12/17 11:44 ABG pCO2 66 mmHg (35-45) H 12/12/17 11:44 ABG pO2 176 mmHg (85-104) H 12/12/17 11:44 ABG O2 Saturation 100 % (95-98) H 12/12/17 11:44 - VTE Documentation of Mechanical Device: Intermittent pneumatic compression device Consult Discharge Plan - Plan Instructions: Laparoscopic Appendectomy (DC) Additional Instructions: General Surgical Discharge Instructions 1. No pushing, pulling, or lifting greater than 15 lbs for 2-4 weeks (depending upon procedure). 2. You may shower beginning today, but no tub baths, soaking, or swimming for 2 weeks. 3. You may resume driving when you are off narcotics and are safe to react in a car. 4. Take ibuprofen every 8 hours for discomfort. If this does not relieve discomfort, you may take the as needed Percocet. Take narcotics as directed. Do not take more narcotics then directed and do not share your narcotics with any other person. Do not drink alcohol while on narcotics. 5. Take stool softeners (Colace) or a water based laxative (Miralax) while taking narcotics. You may hold for loose stools. 6. Report any fevers greater than 100.5F, increase abdominal discomfort, drainage that looks like pus, increased redness or pain at the surgical site, or any vomiting. 7. Report any pain in the calves, shortness of breath, or rapid heartbeat. 8. Follow-up in the office as directed. 9. If you were prescribed antibiotics, do not stop them without talking to your provider. Referrals: Rubén Olivia DO [Primary Care Provider] - Lesly Caballero CNP [Advanced Practice Nurse] - 12/28/17 10:15 am
[2017-12-17] MEDS ORDERED: Isovue-370 500 ML INFUS..BTL IV ONE (08:36)
[2017-12-17 16:55] LABS: Amylase 14 Units/L (29-103); Lipase 17 Units/L (11-82)
[2017-12-18] MEDS: *HR* Heparin 5,000 UNIT/ML VIAL SQ SCH ×2 (06:04→17:59)
[2017-12-18 06:14] LABS: Hematocrit 39.2 % (35.3-44.9); Hemoglobin 13.5 g/dL (11.5-15.4); Mean Corpuscular HGB Conc 34.4 g/dL (31.6-35.5); Mean Corpuscular Hemoglobin 30.3 pg (28.0-33.3); Mean Corpuscular Volume 87.9 fL (83.0-100.0); Mean Platelet Volume 10.8 fL (9.4-12.4); Platelet Count 246 K/mcL (140-400); Red Blood Count 4.46 M/mcL (3.82-4.97); Red Cell Distribution Width 13.2 % (11.5-14.5)
[2017-12-18 06:24] LABS: BUN/Creatinine Ratio 24 (6-26); Blood Urea Nitrogen 21 mg/dL (8-23); Calcium 9.6 mg/dL (8.6-10.3); Carbon Dioxide 38 mEq/L (23-29); Chloride 90 mEq/L (98-107); Glucose 139 mg/dL (70-105); Osmolality,Calculated 295 (280-300); Potassium 3.4 mEq/L (3.5-5.1); Sodium 140 mEq/L (136-145); eGFR For African Americans > 60 (> 60); eGFR For Non-African Americans > 60 (> 60)
[2017-12-18] MEDS: Ipratropium/Albuterol Neb 3 ML IH PRN (07:30)
[2017-12-18] MEDS: Budesonide/Formoterol 80/4.5 MDI IH SCH ×2 (07:31→20:25)
[2017-12-18] MEDS: amLODIPine 5 MG TABLET PO SCH (08:50)
[2017-12-18] MEDS: Lisinopril-HCTZ 20-12.5mg TABLET PO SCH (08:50)
[2017-12-18] MEDS: Furosemide 40 MG TABLET PO SCH (08:50)
[2017-12-18] MEDS: Doxycycline 100 MG in 0.9 % Sodium Chloride Mini Bag 100 ML IVPB SCH (08:50)
[2017-12-18] MEDS: Insulin LISPRO 300 UNITS/3 ML VIAL SQ SCH ×3 (08:51→21:16)
[2017-12-18] MEDS: Insulin DETEMIR 100 UNIT/ML X5UNITS SQ SCH ×2 (08:55→21:15)
--- NOTE | 2017-12-18 18:22 | Internal Med Progress Note ---
Date of Encounter: 12/18/17 Time of Encounter: 14:45 - Assessment and plan (1) Leukocytosis Current Visit: Yes Status: Acute Assessment and plan: Continues to be an issue. Not on steroids. Says stool is loose - may need C diff checked. Check UA as well. Qualifiers: Leukocytosis type: unspecified Qualified Code(s): D72.829 - Elevated white blood cell count, unspecified (2) COPD exacerbation Current Visit: Yes Status: Resolved Assessment and plan: Doing better and she feels she is at baseline at this time. (3) Acute perforated appendicitis Current Visit: Yes Status: Acute Assessment and plan: On PO abx. No pain. WBC higher - recheck tomorrow. CT showed no abscess. (4) Anemia Current Visit: No Status: Chronic Assessment and plan: Improved after transfusion Qualifiers: Anemia type: other cause Other causes of anemia: acute posthemorrhagic Qualified Code(s): D62 - Acute posthemorrhagic anemia (5) Diabetes mellitus, type 2 Current Visit: Yes Status: Chronic Assessment and plan: Fair control. 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 (7) Hypokalemia Current Visit: Yes Status: Resolved - Time Spent With Patient Total time spent is greater than 50% in coordination of care (as documented) at patient's floor/unit and/or counseling patient: - Subjective Interval history: Ms Pruitt is currently admitted for acute perforated appendicitis s/p OR as well as COPD exacerbation. She remains moderate to high risk due to potential for worsening clinical status. Ms Pruitt feels OK. Breathing at baseline. Pain controlled. WBC is higher today. No dysuria. Says her stool is watery. No cough. Awaiting precert for SNF. I told her she needs follow up of her CT in the future for pancreas. - Constitutional Vitals: Temp Pulse Resp BP Pulse Ox 98.1 F 96 21 137/83 99 12/18/17 14:31 12/18/17 14:31 12/18/17 14:31 12/18/17 14:31 12/18/17 14:31 General appearance: Present: cooperative, A&O X 3, answers questions appropriately - Head Head exam: Present: normocephalic - Eye Eye exam: Present: EOMI, conjuntiva pink - ENT ENT exam: Present: mucous membranes dry - Respiratory Respiratory exam: Present: wheezes. Absent: rales, rhonchi - Cardiovascular Cardiovascular exam: Present: RRR. Absent: tachycardia - GI/Abdominal GI/Abdominal exam: Present: soft. Absent: distended - Extremities Exam Extremities exam: Present: warm - Neurological Exam Neurological exam: Present: alert, oriented X3 - Skin Skin exam: Present: dry, warm Internal Medicine: Result - Labs CBC & Chem 7: 12/18/17 05:29 12/18/17 05:29 Labs: Short CBC 12/18/17 Range/Units 05:29 WBC 20.4 H (4.3-11.1) K/mcL Hgb 13.5 D (11.5-15.4) g/dL Hct 39.2 (35.3-44.9) % Plt Count 246 (140-400) K/mcL BMP 12/18/17 05:29 Sodium 140 Potassium 3.4 L Chloride 90 L Carbon Dioxide 38 H BUN 21 Creatinine 0.87 Glucose 139 H Calcium 9.6 - ABG Interpretation ABG results: ABG ABG pH 7.39 pH Units (7.32-7.45) 12/12/17 11:44 ABG pCO2 66 mmHg (35-45) H 12/12/17 11:44 ABG pO2 176 mmHg (85-104) H 12/12/17 11:44 ABG O2 Saturation 100 % (95-98) H 12/12/17 11:44 - VTE Documentation of Mechanical Device: Intermittent pneumatic compression device Consult Discharge Plan - Plan Instructions: Laparoscopic Appendectomy (DC) Additional Instructions: General Surgical Discharge Instructions 1. No pushing, pulling, or lifting greater than 15 lbs for 2-4 weeks (depending upon procedure). 2. You may shower beginning today, but no tub baths, soaking, or swimming for 2 weeks. 3. You may resume driving when you are off narcotics and are safe to react in a car. 4. Take ibuprofen every 8 hours for discomfort. If this does not relieve discomfort, you may take the as needed Percocet. Take narcotics as directed. Do not take more narcotics then directed and do not share your narcotics with any other person. Do not drink alcohol while on narcotics. 5. Take stool softeners (Colace) or a water based laxative (Miralax) while taking narcotics. You may hold for loose stools. 6. Report any fevers greater than 100.5F, increase abdominal discomfort, drainage that looks like pus, increased redness or pain at the surgical site, or any vomiting. 7. Report any pain in the calves, shortness of breath, or rapid heartbeat. 8. Follow-up in the office as directed. 9. If you were prescribed antibiotics, do not stop them without talking to your provider. Referrals: Rubén Olivia DO [Primary Care Provider] - Lesly Caballero CNP [Advanced Practice Nurse] - 12/28/17 10:15 am
[2017-12-18] MEDS: Doxycycline 100 MG CAPSULE PO SCH (21:15)
[2017-12-19] MEDS: *HR* Heparin 5,000 UNIT/ML VIAL SQ SCH ×2 (06:08→17:05)
[2017-12-19 07:39] LABS: Bilirubin,Urine Negative (Negative); Blood,Urine Negative (Negative); Clarity,Urine Cloudy (Clear); Color,Urine Yellow (Yellow); Glucose,Urine (UA) Normal (Normal); Ketones,Urine Trace mg/dL (Negative); Leukocyte Esterase,Urine Negative (Negative); Nitrite,Urine Negative (Negative); Protein,Urine 30 mg/dL (Neg-Trace); Specific Gravity,Urine 1.024 (1.010-1.025); Urobilinogen,Urine Normal (Normal)
[2017-12-19 07:42] LABS: Bacteria,Urine None Seen per hpf (None-Few); RBC,Urine 0-3 per hpf (0-3); Squamous Epithelial Cell,Urine Many per lpf (None-Few); WBC,Urine 0-3 per hpf (0-3)
[2017-12-19] MEDS: Budesonide/Formoterol 80/4.5 MDI IH SCH ×2 (07:51→20:16)
[2017-12-19 07:56] LABS: Transitional Epi Cells,Urine Few per hpf (None-Few)
[2017-12-19] MEDS: Insulin LISPRO 300 UNITS/3 ML VIAL SQ SCH ×4 (08:24→21:02)
[2017-12-19] MEDS: Lisinopril-HCTZ 20-12.5mg TABLET PO SCH (08:25)
[2017-12-19] MEDS: Furosemide 40 MG TABLET PO SCH (08:25)
[2017-12-19] MEDS: Doxycycline 100 MG CAPSULE PO SCH (08:25)
[2017-12-19] MEDS: amLODIPine 5 MG TABLET PO SCH (08:25)
[2017-12-19] MEDS: Insulin DETEMIR 100 UNIT/ML X5UNITS SQ SCH ×2 (08:27→21:01)
[2017-12-19 10:20] LABS: Hematocrit 40.4 % (35.3-44.9); Hemoglobin 13.4 g/dL (11.5-15.4); Mean Corpuscular HGB Conc 33.2 g/dL (31.6-35.5); Mean Corpuscular Volume 90.6 fL (83.0-100.0); Mean Platelet Volume 10.1 fL (9.4-12.4); Platelet Count 283 K/mcL (140-400); Red Blood Count 4.46 M/mcL (3.82-4.97); Red Cell Distribution Width 13.2 % (11.5-14.5)
[2017-12-19 10:43] LABS: BUN/Creatinine Ratio 24 (6-26); Blood Urea Nitrogen 24 mg/dL (8-23); Calcium 9.8 mg/dL (8.6-10.3); Carbon Dioxide 40 mEq/L (23-29); Chloride 89 mEq/L (98-107); Glucose 229 mg/dL (70-105); Osmolality,Calculated 295 (280-300); Potassium 3.4 mEq/L (3.5-5.1); Sodium 137 mEq/L (136-145); eGFR For African Americans > 60 (> 60); eGFR For Non-African Americans 56 (> 60)
[2017-12-19 11:01] LABS: Eosinophils # 0.4 K/mcL (0.0-0.6); Lymphocytes # 2.5 K/mcL (0.6-4.6); Monocytes # 1.4 K/mcL (0.0-1.3); Neutrophils # 15.5 K/mcL (1.6-8.9); Platelet Estimate Normal (Normal); Toxic Granulation Present (Not Present)
[2017-12-19] MEDS ORDERED: Acetaminophen 325 MG TABLET PO PRN (14:49)
[2017-12-19] MEDS ORDERED: *HR* OxyCODONE/APAP 5/325 TABLET PO PRN (14:49)
--- NOTE | 2017-12-19 21:40 | Internal Med Progress Note ---
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 The patient feels pretty good. Her abdominal pain is relatively mild. It is not associated with nausea or vomiting. She is on a diabetic/cardiac diet. She has normal bowel movements/urination. OBJECTIVE: .. Skin: Free of rash and discoloration ENMT: Oral/pharyngeal mucosa is normal in appearance. Eyes: Sclera is white. There is no discharge from eyes. Respiratory: Normal breath sounds; no crackles or wheezes. CV: Heart is regular; no gallop or murmur. GI: Abdomen is soft and not tender. There is no palpable mass or visceromegaly. Neuro: There is no focal deficits. ASSESSMENT AND PLAN: .. Acute perforated appendicitis. She continues to have her leukocytosis of 20.[address] of chest and abdomen do not show any source for infection. Testing of her stool for C. difficile is negative. Her UA is normal. We will continue Augmentin. Doxycycline was stopped yesterday. COPD exacerbation. Under control. We are not using steroids. We will continue Symbicort, Singulair and when necessary DuoNeb. Type 2 diabetes mellitus. We will continue diabetic diet, Levemir and when necessary Humalog. Hypokalemia. We will give her supplemental potassium chloride. We will check CBC, BMP and magnesium in the morning. - Constitutional Vitals: Temp Pulse Resp BP Pulse Ox 98.2 F 99 21 128/75 98 12/19/17 19:22 12/19/17 19:22 12/19/17 20:17 12/19/17 19:22 12/19/17 20:17 General appearance: Present: cooperative, A&O X 3, answers questions appropriately Internal Medicine: Result - Labs CBC & Chem 7: 12/19/17 10:09 12/19/17 10:09 Labs: Short CBC 12/19/17 Range/Units 10:09 WBC 20.4 H (4.3-11.1) K/mcL Hgb 13.4 (11.5-15.4) g/dL Hct 40.4 (35.3-44.9) % Plt Count 283 (140-400) K/mcL Neutrophils # 15.5 H (1.6-8.9) K/mcL BMP 12/19/17 10:09 Sodium 137 Potassium 3.4 L Chloride 89 L Carbon Dioxide 40 H* BUN 24 H Creatinine 0.99 Glucose 229 H Calcium 9.8 Urine 12/19/17 Range/Units 06:11 Urine Color Yellow (Yellow) Urine Clarity Cloudy A (Clear) Urine pH 6.0 (5.0-8.0) pH Units Ur Specific Wh[place]am 1.024 (1.010-1.025) Urine Protein 30 H (Neg-Trace) mg/dL Urine Glucose (UA) Normal (Normal) mg/dL - ABG Interpretation ABG results: ABG ABG pH 7.39 pH Units (7.32-7.45) 12/12/17 11:44 ABG pCO2 66 mmHg (35-45) H 12/12/17 11:44 ABG pO2 176 mmHg (85-104) H 12/12/17 11:44 ABG O2 Saturation 100 % (95-98) H 12/12/17 11:44 - VTE Documentation of Mechanical Device: Intermittent pneumatic compression device Consult Discharge Plan - Plan Instructions: Laparoscopic Appendectomy (DC) Additional Instructions: General Surgical Discharge Instructions 1. No pushing, pulling, or lifting greater than 15 lbs for 2-4 weeks (depending upon procedure). 2. You may shower beginning today, but no tub baths, soaking, or swimming for 2 weeks. 3. You may resume driving when you are off narcotics and are safe to react in a car. 4. Take ibuprofen every 8 hours for discomfort. If this does not relieve discomfort, you may take the as needed Percocet. Take narcotics as directed. Do not take more narcotics then directed and do not share your narcotics with any other person. Do not drink alcohol while on narcotics. 5. Take stool softeners (Colace) or a water based laxative (Miralax) while taking narcotics. You may hold for loose stools. 6. Report any fevers greater than 100.5F, increase abdominal discomfort, drainage that looks like pus, increased redness or pain at the surgical site, or any vomiting. 7. Report any pain in the calves, shortness of breath, or rapid heartbeat. 8. Follow-up in the office as directed. 9. If you were prescribed antibiotics, do not stop them without talking to your provider. Referrals: Rubén Olivia DO [Primary Care Provider] - Lesly Caballero CNP [Advanced Practice Nurse] - 12/28/17 10:15 am
[2017-12-20 02:00] LABS: Hematocrit 39.3 % (35.3-44.9); Hemoglobin 12.8 g/dL (11.5-15.4); Mean Corpuscular HGB Conc 32.6 g/dL (31.6-35.5); Mean Corpuscular Hemoglobin 29.7 pg (28.0-33.3); Mean Corpuscular Volume 91.2 fL (83.0-100.0); Mean Platelet Volume 10.4 fL (9.4-12.4); Platelet Count 278 K/mcL (140-400); Red Blood Count 4.31 M/mcL (3.82-4.97); Red Cell Distribution Width 13.2 % (11.5-14.5)
[2017-12-20 02:29] LABS: BUN/Creatinine Ratio 26 (6-26); Blood Urea Nitrogen 28 mg/dL (8-23); Calcium 9.8 mg/dL (8.6-10.3); Carbon Dioxide 43 mEq/L (23-29); Chloride 88 mEq/L (98-107); Glucose 60 mg/dL (70-105); Magnesium 2.1 mg/dL (1.6-2.6); Osmolality,Calculated 289 (280-300); Potassium 3.7 mEq/L (3.5-5.1); Sodium 138 mEq/L (136-145); eGFR For African Americans > 60 (> 60); eGFR For Non-African Americans 51 (> 60)
[2017-12-20 03:05] LABS: Eosinophils # 0.8 K/mcL (0.0-0.6); Lymphocytes # 6.4 K/mcL (0.6-4.6); Neutrophils # 10.8 K/mcL (1.6-8.9); Platelet Estimate Normal (Normal)
[2017-12-20] MEDS: *HR* Heparin 5,000 UNIT/ML VIAL SQ SCH ×2 (05:59→17:13)
[2017-12-20] MEDS: Furosemide 40 MG TABLET PO SCH (07:57)
[2017-12-20] MEDS: Lisinopril-HCTZ 20-12.5mg TABLET PO SCH (07:57)
[2017-12-20] MEDS: amLODIPine 5 MG TABLET PO SCH (07:57)
[2017-12-20] MEDS: Insulin LISPRO 300 UNITS/3 ML VIAL SQ SCH ×4 (07:58→21:16)
[2017-12-20] MEDS: Insulin DETEMIR 100 UNIT/ML X5UNITS SQ SCH ×2 (07:58→21:18)
[2017-12-20] MEDS: Budesonide/Formoterol 80/4.5 MDI IH SCH ×2 (10:33→20:06)
--- NOTE | 2017-12-20 17:28 | Internal Med Progress Note ---
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 The patient feels pretty good. Her abdominal pain is relatively mild. It is not associated with nausea or vomiting. She is on a diabetic/cardiac diet. She has normal bowel movements/urination. The patient complains of mild/diffuse abdominal pain. It is not associated with any nausea or vomiting. She denies having urinary symptoms. Denies chest pain, dyspnea, coughing and wheezing. OBJECTIVE: .. Skin: Free of rash and discoloration Respiratory: Normal breath sounds; no crackles or wheezes. CV: Heart is regular; no gallop or murmur. GI: Abdomen is soft and not tender. There is no palpable mass or visceromegaly. Neuro: There is no focal deficits. ASSESSMENT AND PLAN: .. Acute perforated appendicitis. Repeated WBC count from today is 20.0 thousand. It was 20.[address] of chest and abdomen do not show any source for infection. Testing of her stool for C. difficile is negative. Her UA is normal. We will discontinue Augmentin. We will get blood culture on 2 occasions. We will consider infectious diseases consult. COPD exacerbation. Under control. We are not using steroids. We will continue Symbicort, Singulair and when necessary DuoNeb. Type 2 diabetes mellitus. We will continue diabetic diet, Levemir and when necessary Humalog. Hypokalemia. She is on oral potassium chloride. Her potassium from today is 3.7; 3.4 yesterday. We will check CBC, BMP and magnesium in the morning. - Constitutional Vitals: Temp Pulse Resp BP Pulse Ox 97.8 F 93 18 128/73 99 12/20/17 14:58 12/20/17 14:58 12/20/17 14:58 12/20/17 14:58 12/20/17 14:58 General appearance: Present: cooperative, A&O X 3, answers questions appropriately Internal Medicine: Result - Labs CBC & Chem 7: 12/20/17 01:20 12/20/17 01:20 Labs: Short CBC 12/20/17 Range/Units 01:20 WBC 20.0 H (4.3-11.1) K/mcL Hgb 12.8 (11.5-15.4) g/dL Hct 39.3 (35.3-44.9) % Plt Count 278 (140-400) K/mcL Neutrophils # 10.8 H (1.6-8.9) K/mcL BMP 12/20/17 01:20 Sodium 138 Potassium 3.7 Chloride 88 L Carbon Dioxide 43 H* BUN 28 H Creatinine 1.07 Glucose 60 L Calcium 9.8 - ABG Interpretation ABG results: ABG ABG pH 7.39 pH Units (7.32-7.45) 12/12/17 11:44 ABG pCO2 66 mmHg (35-45) H 12/12/17 11:44 ABG pO2 176 mmHg (85-104) H 12/12/17 11:44 ABG O2 Saturation 100 % (95-98) H 12/12/17 11:44 - VTE Documentation of Mechanical Device: Intermittent pneumatic compression device Consult Discharge Plan - Plan Instructions: Laparoscopic Appendectomy (DC) Additional Instructions: General Surgical Discharge Instructions 1. No pushing, pulling, or lifting greater than 15 lbs for 2-4 weeks (depending upon procedure). 2. You may shower beginning today, but no tub baths, soaking, or swimming for 2 weeks. 3. You may resume driving when you are off narcotics and are safe to react in a car. 4. Take ibuprofen every 8 hours for discomfort. If this does not relieve discomfort, you may take the as needed Percocet. Take narcotics as directed. Do not take more narcotics then directed and do not share your narcotics with any other person. Do not drink alcohol while on narcotics. 5. Take stool softeners (Colace) or a water based laxative (Miralax) while taking narcotics. You may hold for loose stools. 6. Report any fevers greater than 100.5F, increase abdominal discomfort, drainage that looks like pus, increased redness or pain at the surgical site, or any vomiting. 7. Report any pain in the calves, shortness of breath, or rapid heartbeat. 8. Follow-up in the office as directed. 9. If you were prescribed antibiotics, do not stop them without talking to your provider. Referrals: Rubén Olivia DO [Primary Care Provider] - Lesly Caballero CNP [Advanced Practice Nurse] - 12/28/17 10:15 am
[2017-12-21 05:18] LABS: Hematocrit 37.4 % (35.3-44.9); Hemoglobin 12.1 g/dL (11.5-15.4); Mean Corpuscular HGB Conc 32.4 g/dL (31.6-35.5); Mean Corpuscular Hemoglobin 29.9 pg (28.0-33.3); Mean Corpuscular Volume 92.3 fL (83.0-100.0); Mean Platelet Volume 10.2 fL (9.4-12.4); Platelet Count 239 K/mcL (140-400); Red Blood Count 4.05 M/mcL (3.82-4.97); Red Cell Distribution Width 13.4 % (11.5-14.5)
[2017-12-21 05:43] LABS: BUN/Creatinine Ratio 25 (6-26); Blood Urea Nitrogen 25 mg/dL (8-23); Calcium 9.4 mg/dL (8.6-10.3); Carbon Dioxide 40 mEq/L (23-29); Chloride 92 mEq/L (98-107); Glucose 150 mg/dL (70-105); Osmolality,Calculated 293 (280-300); Sodium 138 mEq/L (136-145); eGFR For African Americans > 60 (> 60); eGFR For Non-African Americans 56 (> 60)
[2017-12-21] MEDS: *HR* Heparin 5,000 UNIT/ML VIAL SQ SCH (06:02)
[2017-12-21 06:26] LABS: Eosinophils # 0.7 K/mcL (0.0-0.6); Lymphocytes # 3.8 K/mcL (0.6-4.6); Monocytes # 1.4 K/mcL (0.0-1.3); Neutrophils # 10.7 K/mcL (1.6-8.9); Platelet Estimate Normal (Normal)
[2017-12-21 06:27] LABS: Toxic Granulation Present (Not Present)
[2017-12-21 07:50] VITALS: BP 112/67
[2017-12-21] MEDS: Lisinopril-HCTZ 20-12.5mg TABLET PO SCH (09:48)
[2017-12-21] MEDS: amLODIPine 5 MG TABLET PO SCH (09:49)
[2017-12-21] MEDS: Furosemide 40 MG TABLET PO SCH (09:49)
[2017-12-21] MEDS: Insulin LISPRO 300 UNITS/3 ML VIAL SQ SCH ×2 (09:50→13:22)
--- NOTE | 2017-12-21 10:48 | Discharge Summary ---
- NOTES TO OUTPATIENT PROVIDER Notes to Outpatient Provider: CBC to be checked in about 5 days. Her today's WBC is 7 17,000; 20,000 yesterday. Orders not resulted at time of discharge: Pending orders 12/20/17 17:43 Culture,Blood [BC] Routine Culture,Blood,Additional [BC] Routine Date of Encounter: 12/21/17 Time of Encounter: 10:46 - Discharge Diagnosis (1) Acute perforated appendicitis Priority: Primary Status: Acute (2) COPD exacerbation Priority: Secondary Status: Acute (3) Diabetes mellitus, type 2 Priority: Secondary Status: Chronic Qualifiers: Diabetes mellitus care home insulin use: without care home use Diabetes mellitus complication status: with hyperglycemia Qualified Code(s): E11.65 - Type 2 diabetes mellitus with hyperglycemia (4) Hypokalemia Priority: Secondary Status: Resolved Hospital course: Ms. Pruitt is a 67 year old female. - Time Spent with Patient Total time spent providing and/or coordinating discharge services: Greater than 30 minutes (40 minutes) - Discharge Medications Home Medications: Fluticasone/Salmeterol [Advair 250-50 Diskus] 1 puff IH BID 01/23/15 [History] Ipratropium/Albuterol Sulfate [Combivent Respimat Inhal [place]] 1 puff IH QID PRN 01/23/15 [History] Citalopram [CeleXA] 40 mg PO DAILY 01/26/15 [History] Gabapentin [Neurontin] 600 mg PO BID 11/20/15 [History] Pravastatin Sodium [Pravachol] 40 mg PO DAILY 11/20/15 [History] Ergocalciferol (VITAMIN D2) [Vitamin D2] 2,000 unit PO DAILY 12/04/15 [History] Ferrous Sulfate 325 mg PO TID #90 tablet 09/28/17 [Rx] Secukinumab [Cosentyx Pen] 300 mg SQ QMONTH 10/16/17 [History] glipiZIDE [Glucotrol] 5 mg PO DAILY 10/16/17 [History] Levothyroxine Sodium 125 mcg PO DAILY 12/12/17 [History] Lisinopril-HCTZ 20-12.5 [Prinzide 20-12.5] 1 tab PO DAILY 12/12/17 [History] Multivitamin [One Daily Essential] 1 tab PO DAILY 12/12/17 [History] Montelukast [Singulair] 10 mg PO HS 12/13/17 [History] Acetaminophen [Tylenol] 650 mg PO Q6HR PRN tablet 12/21/17 [Rx] Oxygen 3 l NS AD #1 12/21/17 [Rx] Potassium Chloride [Klor-Con 10] 10 meq PO BID #60 12/21/17 [Rx] amLODIPine [Norvasc] 5 mg PO DAILY tablet 12/21/17 [Rx] Allergies/Adverse Reactions: 3 Allergy/AdvReac Type Severity Reaction Status Date / Time No Known Allergies Allergy Verified 10/16/17 10:45 Date of admission: 12/12/17 15:37 Primary care physician: Rubén Olivia DO Consults: 12/13/17 13:51 Consult to Physical Therapy [CONS] Routine Comment: Evaluate, develop and implement POC Reason for Consult: Pt voices increased weakness and multiple falls at home; please evaluate, possible short term rehab needed Does patient have active BEDREST order?: No Is patient medically & hemodynamically stable?: Yes Patient assessed for mobility or mobilized this visit?: No 12/13/17 13:52 Consult to Occupational Therapy [CONS] Routine Comment: Evaluate, develop and implement POC Reason for Consult: Pt voices increased weakness and multiple falls at home; please evaluate, possible short term rehab needed Does patient have active BEDREST order?: No Is patient medically & hemodynamically stable?: Yes Patient assessed for mobility or mobilized this visit?: No Discharging clinician: Mal Carlson Anticipated date of discharge: 12/21/17 - Constitutional Vitals: Temp Pulse Resp BP Pulse Ox 98.7 F 97 20 112/67 95 12/21/17 07:44 12/21/17 07:44 12/21/17 07:44 12/21/17 07:44 12/21/17 07:44 General appearance: Present: cooperative, A&O X 3, answers questions appropriately - Respiratory Respiratory exam: Present: CTAB. Absent: accessory muscle use, rales, rhonchi, wheezes - Cardiovascular Cardiovascular exam: Present: RRR, +S1, +S2. Absent: diastolic murmur, gallop, rubs, systolic murmur - GI/Abdominal GI/Abdominal exam: Present: normal bowel sounds, soft, no peritoneal signs. Absent: distended, tenderness - Patient Status Disposition: Transfer SNF Condition: Fair Overall status at discharge: patient is progressing back to baseline (Needs assistance with ambulation.) - Discharge Instructions Instructions: Laparoscopic Appendectomy (DC) Follow Up With: Rubén Olivia DO [Primary Care Provider] - Lesly Caballero CNP [Advanced Practice Nurse] - 12/28/17 10:15 am Forms: ED Satisfaction Letter Additional Instructions: General Surgical Discharge Instructions 1. No pushing, pulling, or lifting greater than 15 lbs for 2-4 weeks (depending upon procedure). 2. You may shower beginning today, but no tub baths, soaking, or swimming for 2 weeks. 3. You may resume driving when you are off narcotics and are safe to react in a car. 4. Take ibuprofen every 8 hours for discomfort. If this does not relieve discomfort, you may take the as needed Percocet. Take narcotics as directed. Do not take more narcotics then directed and do not share your narcotics with any other person. Do not drink alcohol while on narcotics. 5. Take stool softeners (Colace) or a water based laxative (Miralax) while taking narcotics. You may hold for loose stools. 6. Report any fevers greater than 100.5F, increase abdominal discomfort, drainage that looks like pus, increased redness or pain at the surgical site, or any vomiting. 7. Report any pain in the calves, shortness of breath, or rapid heartbeat. 8. Follow-up in the office as directed. 9. If you were prescribed antibiotics, do not stop them without talking to your provider. - Diet and Activity Activity: ambulate only with your walker - VTE Documentation of Mechanical Device: Intermittent pneumatic compression device Deep Vein Thrombosis/Pulmonary Embolism Present on Admission: No
[2017-12-21] MEDS: Budesonide/Formoterol 80/4.5 MDI IH SCH (10:51)
[2017-12-21] MEDS: Insulin DETEMIR 100 UNIT/ML X5UNITS SQ SCH (11:06)
--- NOTE | 2017-12-21 12:15 | Physician Discharge Referral ---
ExtendedCare Referral Info Transfer To: [facility] Provider in Charge: Leonardo Carlson Provider in Charge after Transfer: Other ([facility] physician.) - Diagnosis (1) Acute perforated appendicitis Status: Acute (2) COPD exacerbation Status: Acute (3) Diabetes mellitus, type 2 Status: Chronic (4) Hypokalemia Status: Resolved - Transfer Medications Home Medications: Fluticasone/Salmeterol [Advair 250-50 Diskus] 1 puff IH BID 01/23/15 [History] Ipratropium/Albuterol Sulfate [Combivent Respimat Inhal [place]] 1 puff IH QID PRN 01/23/15 [History] Citalopram [CeleXA] 40 mg PO DAILY 01/26/15 [History] Gabapentin [Neurontin] 600 mg PO BID 11/20/15 [History] Pravastatin Sodium [Pravachol] 40 mg PO DAILY 11/20/15 [History] Ergocalciferol (VITAMIN D2) [Vitamin D2] 2,000 unit PO DAILY 12/04/15 [History] Ferrous Sulfate 325 mg PO TID #90 tablet 09/28/17 [Rx] Secukinumab [Cosentyx Pen] 300 mg SQ QMONTH 10/16/17 [History] glipiZIDE [Glucotrol] 5 mg PO DAILY 10/16/17 [History] Levothyroxine Sodium 125 mcg PO DAILY 12/12/17 [History] Lisinopril-HCTZ 20-12.5 [Prinzide 20-12.5] 1 tab PO DAILY 12/12/17 [History] Multivitamin [One Daily Essential] 1 tab PO DAILY 12/12/17 [History] Montelukast [Singulair] 10 mg PO HS 12/13/17 [History] Acetaminophen [Tylenol] 650 mg PO Q6HR PRN tablet 12/21/17 [Rx] Oxygen 3 l NS AD #1 12/21/17 [Rx] Potassium Chloride [Klor-Con 10] 10 meq PO BID #60 12/21/17 [Rx] amLODIPine [Norvasc] 5 mg PO DAILY tablet 12/21/17 [Rx] Allergies/Adverse Reactions: 3 Allergy/AdvReac Type Severity Reaction Status Date / Time No Known Allergies Allergy Verified 10/16/17 10:45 - Respiratory Orders Oxygen / L per min (3 L/ min. Keep pulse ox between 90 and 95%.) Smoking Cessation: Smoking cessation has been advised. For more information, call the [place] Tobacco Quit Line at 9-169-QJJK-NOW. - Advance Directives Code Status: Full Code - History and Physical History/Physical reviewed & approved w/add comments: YES - Mobility Orders Ambulate - Rehabiliation Orders Rehab Potential: Good Rehab Orders: Evaluation for Physical Therapy CERTIFICATION: I certify that the transfer of the above named patient to an Extended Care Facility is necessary for the continuing treatment of the diagnosis listed. The above information is true and accurate reflection of patient's current condition. Confidential - Redisclosure prohibited without a patient's written consent.
== END 2017-12-21 13:58 | DRG 853 ==
LOC: 3ANU 10:07 → EMEROO 10:07 → SUATTDRO 15:37 → 3ANU 15:55
PROVIDERS: ADMIT Internal Medicine; ATTEND Internal Medicine

== ENCOUNTER 2019-05-02 10:32 | Inpatient (IN) ==
[2019-05-02] MEDS ORDERED: predniSONE 20 MG TABLET PO ONE (10:40)
[2019-05-02] MEDS ORDERED: Ipratropium/Albuterol Neb 3 ML ONE (10:52)
[2019-05-02] MEDS: Ipratropium/Albuterol Neb 3 ML IH ONE ×2 (10:54→10:57)
[2019-05-02 11:20] LABS: Basophils # 0.1 K/mcL (0.0-0.2); Basophils % 0.4 %; Eosinophils # 0.2 K/mcL (0.0-0.6); Eosinophils % 1.2 %; Hematocrit 29.5 % (35.3-44.9); Hemoglobin 9.2 g/dL (11.5-15.4); Immature Granulocytes % 0.6 % (0-4); Lymphocytes # 1.3 K/mcL (0.6-4.6); Lymphocytes % 9.7 %; Mean Corpuscular HGB Conc 31.2 g/dL (31.6-35.5); Mean Corpuscular Volume 99.3 fL (83.0-100.0); Mean Platelet Volume 10.8 fL (9.4-12.4); Monocytes % 6.9 %; Neutrophils # 11.2 K/mcL (1.6-8.9); Platelet Count 157 K/mcL (140-400); Red Blood Count 2.97 M/mcL (3.82-4.97); Red Cell Distribution Width 11.9 % (11.5-14.5); Segmented Neutrophils % 81.2 %; White Blood Count 13.8 K/mcL (4.3-11.1)
[2019-05-02 11:47] LABS: BUN/Creatinine Ratio 22 (6-26); Blood Urea Nitrogen 22 mg/dL (8-23); Calcium 9.6 mg/dL (8.6-10.3); Carbon Dioxide 43 mEq/L (23-29); Chloride 93 mEq/L (98-107); Glucose 207 mg/dL (70-105); Osmolality,Calculated 303 (280-300); Potassium 4.3 mEq/L (3.5-5.1); Sodium 142 mEq/L (136-145); Troponin I < 0.03 ng/mL (< 0.04); eGFR For African Americans > 60 (> 60); eGFR For Non-African Americans 56 (> 60)
[2019-05-02 12:06] LABS: Bilirubin,Urine Negative (Negative); Blood,Urine Negative (Negative); Clarity,Urine Clear (Clear); Color,Urine Yellow (Yellow); Glucose,Urine (UA) Normal (Normal); Ketones,Urine Negative (Negative); Leukocyte Esterase,Urine Negative (Negative); Nitrite,Urine Negative (Negative); Protein,Urine Trace mg/dL (Neg-Trace); Specific Gravity,Urine 1.025 (1.010-1.025); Urobilinogen,Urine Normal (Normal)
[2019-05-02 13:10] LABS: VBG HCO3 43 mEq/L (21-27); VBG PCO2 73 mmHg (41-51); VBG PH 7.38 pH Units (7.32-7.42); VBG PO2 111 mmHg (25-50)
[2019-05-02] MEDS ORDERED: Albuterol 2.5 MG/3 ML NEBULIZER IH PRN (13:15)
[2019-05-02] MEDS ORDERED: *HR* Dextrose 50 % in Water (Syg) 50 ML SYRINGE IVP PRN (14:23)
[2019-05-02] MEDS ORDERED: D5% in Water 1,000 ML IVC PRN (14:23)
[2019-05-02] MEDS ORDERED: Dextrose Gel 15 GM/37.5 ML TUBE PO PRN ×2 (14:23)
[2019-05-02 15:54] LABS: Thyroid Stimulating Hormone 2.212 mcIU/mL (0.340-5.600)
[2019-05-02] MEDS ORDERED: Albuterol 2.5 MG/3 ML NEBULIZER IH SCH (16:00)
[2019-05-02] MEDS ORDERED: Isovue-370 500 ML BOTTLE IVP ONE (17:24)
[2019-05-02] MEDS: Insulin LISPRO 300 UNITS/3 ML VIAL SQ SCH (17:46)
[2019-05-02] MEDS: Azithromycin 500 MG in 0.9 % Sodium Chloride 250 ML IVPB SCH (18:25)
[2019-05-02] MEDS: *HR* Heparin 5,000 UNIT/ML VIAL SQ SCH (18:26)
[2019-05-02 19:32] LABS: Adenovirus Not Detected (Not Detect); Bordetella Pertussis Not Detected (Not Detect); Chlamydophila pneumoniae Not Detected (Not Detect); Coronavirus 229E Not Detected (Not Detect); Coronavirus HKU1 Not Detected (Not Detect); Coronavirus NL63 Not Detected (Not Detect); Coronavirus OC43 Not Detected (Not Detect); Human Metapneumovirus Not Detected (Not Detect); Human Rhinovirus/Enterovirus Not Detected (Not Detect); Influenza A Subtype 2009 H1 Not Detected (Not Detect); Influenza A Untypeable Not Detected (Not Detect); Influenza B Not Detected (Not Detect); Mycoplasma pneumoniae Not Detected (Not Detect); Parainfluenza Virus 1 Not Detected (Not Detect); Parainfluenza Virus 2 Not Detected (Not Detect); Parainfluenza Virus 3 Not Detected (Not Detect); Parainfluenza Virus 4 Not Detected (Not Detect); Respiratory Syncytial Virus Not Detected (Not Detect)
[2019-05-02] MEDS: MethylPREDNISolone 40 MG/ML VIAL IVP SCH (19:58)
[2019-05-02] MEDS: Furosemide 40 MG TABLET PO SCH (19:58)
[2019-05-02] MEDS: Insulin DETEMIR 100 UNIT/ML X5UNITS SQ SCH (19:59)
[2019-05-02] MEDS: Levalbuterol Neb 1.25 MG/3 ML IH SCH ×2 (20:39→22:32)
[2019-05-02] MEDS: Budesonide/Formoterol 80/4.5 1 PUFF INH IH SCH (20:40)
[2019-05-02] MEDS: Gabapentin 300 MG CAPSULE PO SCH (20:54)
[2019-05-03 02:26] LABS: VBG HCO3 45 mEq/L (21-27); VBG PCO2 80 mmHg (41-51); VBG PH 7.36 pH Units (7.32-7.42); VBG PO2 100 mmHg (25-50)
[2019-05-03 02:31] LABS: Basophils % 0.1 %; Eosinophils % 0.1 %; Hematocrit 28.2 % (35.3-44.9); Hemoglobin 8.6 g/dL (11.5-15.4); Immature Granulocytes % 0.8 % (0-4); Lymphocytes # 0.6 K/mcL (0.6-4.6); Lymphocytes % 4.7 %; Mean Corpuscular HGB Conc 30.5 g/dL (31.6-35.5); Mean Corpuscular Hemoglobin 30.6 pg (28.0-33.3); Mean Corpuscular Volume 100.4 fL (83.0-100.0); Mean Platelet Volume 11.7 fL (9.4-12.4); Monocytes # 0.2 K/mcL (0.0-1.3); Monocytes % 1.5 %; Neutrophils # 12.6 K/mcL (1.6-8.9); Platelet Count 159 K/mcL (140-400); Red Blood Count 2.81 M/mcL (3.82-4.97); Red Cell Distribution Width 11.9 % (11.5-14.5); Segmented Neutrophils % 92.8 %; White Blood Count 13.6 K/mcL (4.3-11.1)
[2019-05-03 03:01] LABS: BUN/Creatinine Ratio 24 (6-26); Blood Urea Nitrogen 25 mg/dL (8-23); Calcium 9.6 mg/dL (8.6-10.3); Carbon Dioxide 42 mEq/L (23-29); Chloride 93 mEq/L (98-107); Glucose 206 mg/dL (70-105); Osmolality,Calculated 300 (280-300); Sodium 140 mEq/L (136-145); eGFR For African Americans > 60 (> 60); eGFR For Non-African Americans 53 (> 60)
[2019-05-03] MEDS: Levalbuterol Neb 1.25 MG/3 ML IH SCH ×4 (03:16→20:49)
[2019-05-03] MEDS: *HR* Heparin 5,000 UNIT/ML VIAL SQ SCH ×2 (05:26→18:46)
[2019-05-03] MEDS: MethylPREDNISolone 40 MG/ML VIAL IVP SCH ×2 (10:27→21:54)
[2019-05-03] MEDS: Gabapentin 300 MG CAPSULE PO SCH ×2 (10:27→21:53)
[2019-05-03] MEDS: Insulin LISPRO 300 UNITS/3 ML VIAL SQ SCH ×3 (10:27→17:13)
[2019-05-03] MEDS: Furosemide 40 MG TABLET PO SCH ×2 (10:28→21:53)
[2019-05-03] MEDS: Lisinopril-HCTZ 20-12.5mg TABLET PO SCH (10:28)
[2019-05-03] MEDS: Budesonide/Formoterol 80/4.5 1 PUFF INH IH SCH ×2 (11:43→20:49)
[2019-05-03] MEDS: Azithromycin 500 MG in 0.9 % Sodium Chloride 250 ML IVPB SCH (14:15)
[2019-05-03 15:22] LABS: Estimated Average Glucose 146 mg/dl
[2019-05-03] MEDS: Acetaminophen 325 MG TABLET PO PRN (19:11)
[2019-05-03] MEDS: Insulin DETEMIR 100 UNIT/ML X5UNITS SQ SCH (21:54)
[2019-05-04] MEDS: Levalbuterol Neb 1.25 MG/3 ML IH SCH ×7 (00:05→23:53)
[2019-05-04] MEDS: *HR* Heparin 5,000 UNIT/ML VIAL SQ SCH ×2 (05:52→16:31)
[2019-05-04] MEDS: Budesonide/Formoterol 80/4.5 1 PUFF INH IH SCH ×2 (07:57→20:16)
[2019-05-04] MEDS: Insulin LISPRO 300 UNITS/3 ML VIAL SQ SCH ×3 (09:04→16:32)
[2019-05-04] MEDS: Lisinopril-HCTZ 20-12.5mg TABLET PO SCH (09:05)
[2019-05-04] MEDS: Gabapentin 300 MG CAPSULE PO SCH ×2 (09:05→20:58)
[2019-05-04] MEDS: Furosemide 40 MG TABLET PO SCH ×2 (09:05→20:58)
[2019-05-04] MEDS: MethylPREDNISolone 40 MG/ML VIAL IVP SCH ×2 (09:05→20:57)
[2019-05-04] MEDS: Azithromycin 500 MG in 0.9 % Sodium Chloride 250 ML IVPB SCH (13:47)
[2019-05-04 14:17] LABS: Basophils % 0.2 %; Hematocrit 30.1 % (35.3-44.9); Hemoglobin 9.6 g/dL (11.5-15.4); Immature Granulocytes % 2.1 % (0-4); Lymphocytes # 0.7 K/mcL (0.6-4.6); Lymphocytes % 4.1 %; Mean Corpuscular HGB Conc 31.9 g/dL (31.6-35.5); Mean Corpuscular Volume 97.1 fL (83.0-100.0); Mean Platelet Volume 11.4 fL (9.4-12.4); Monocytes # 0.7 K/mcL (0.0-1.3); Monocytes % 3.8 %; Neutrophils # 15.9 K/mcL (1.6-8.9); Platelet Count 215 K/mcL (140-400); Red Cell Distribution Width 12.2 % (11.5-14.5); Segmented Neutrophils % 89.8 %; White Blood Count 17.8 K/mcL (4.3-11.1)
[2019-05-04 14:31] LABS: Calcium 9.9 mg/dL (8.6-10.3); Potassium 4.2 mEq/L (3.5-5.1)
[2019-05-04] MEDS: Insulin DETEMIR 100 UNIT/ML X5UNITS SQ SCH (20:57)
[2019-05-04] MEDS: Acetaminophen 325 MG TABLET PO PRN (20:58)
[2019-05-05] MEDS: Levalbuterol Neb 1.25 MG/3 ML IH SCH ×5 (03:34→20:21)
[2019-05-05] MEDS: *HR* Heparin 5,000 UNIT/ML VIAL SQ SCH ×2 (06:00→17:23)
[2019-05-05] MEDS: Budesonide/Formoterol 80/4.5 1 PUFF INH IH SCH ×2 (08:12→20:21)
[2019-05-05] MEDS: Insulin LISPRO 300 UNITS/3 ML VIAL SQ SCH ×3 (08:59→17:10)
[2019-05-05] MEDS: Gabapentin 300 MG CAPSULE PO SCH ×2 (09:00→20:05)
[2019-05-05] MEDS: Lisinopril-HCTZ 20-12.5mg TABLET PO SCH (09:00)
[2019-05-05] MEDS: Furosemide 40 MG TABLET PO SCH ×2 (09:00→20:06)
[2019-05-05] MEDS: Azithromycin 250 MG TABLET PO SCH (09:16)
[2019-05-05] MEDS: PrednisoLONE Oral Soln 15 MG/5 ML UDC PO SCH (10:54)
[2019-05-05] MEDS: Insulin DETEMIR 100 UNIT/ML X5UNITS SQ SCH (20:04)
[2019-05-06] MEDS: Levalbuterol Neb 1.25 MG/3 ML IH SCH ×6 (00:25→21:11)
[2019-05-06] MEDS: *HR* Heparin 5,000 UNIT/ML VIAL SQ SCH ×2 (05:27→17:45)
[2019-05-06 07:40] LABS: Hematocrit 30.1 % (35.3-44.9); Hemoglobin 9.2 g/dL (11.5-15.4); Mean Corpuscular HGB Conc 30.6 g/dL (31.6-35.5); Mean Corpuscular Hemoglobin 30.7 pg (28.0-33.3); Mean Corpuscular Volume 100.3 fL (83.0-100.0); Mean Platelet Volume 10.6 fL (9.4-12.4); Platelet Count 203 K/mcL (140-400); Red Cell Distribution Width 12.2 % (11.5-14.5); White Blood Count 16.3 K/mcL (4.3-11.1)
[2019-05-06] MEDS: Budesonide/Formoterol 80/4.5 1 PUFF INH IH SCH ×2 (07:48→21:11)
[2019-05-06 08:29] LABS: BUN/Creatinine Ratio 40 (6-26); Blood Urea Nitrogen 52 mg/dL (8-23); Calcium 9.8 mg/dL (8.6-10.3); Carbon Dioxide > 45 mEq/L (23-29); Chloride 90 mEq/L (98-107); Glucose 164 mg/dL (70-105); Osmolality,Calculated 316 (280-300); Potassium 3.4 mEq/L (3.5-5.1); Sodium 144 mEq/L (136-145); eGFR For African Americans 49 (> 60); eGFR For Non-African Americans 40 (> 60)
[2019-05-06] MEDS: Lisinopril-HCTZ 20-12.5mg TABLET PO SCH (08:40)
[2019-05-06] MEDS: Gabapentin 300 MG CAPSULE PO SCH ×2 (08:40→21:29)
[2019-05-06] MEDS: PrednisoLONE Oral Soln 15 MG/5 ML UDC PO SCH (08:40)
[2019-05-06] MEDS: Azithromycin 250 MG TABLET PO SCH (08:40)
[2019-05-06] MEDS: Insulin LISPRO 300 UNITS/3 ML VIAL SQ SCH ×3 (08:44→17:49)
[2019-05-06 14:36] LABS: ABG Base Excess 17 mEq/L (-2 to 3); ABG HCO3 45 mEq/L (21-27); ABG Oxygen Saturation 92 % (95-98); ABG PCO2 77 mmHg (35-45); ABG PH 7.37 pH Units (7.32-7.45); ABG PO2 69 mmHg (85-104); ABG TCO2 48 mEq/L (20-26)
[2019-05-06] MEDS ORDERED: Insulin DETEMIR 100 UNIT/ML X5UNITS SQ SCH (21:00)
[2019-05-06] MEDS: Acetaminophen 325 MG TABLET PO PRN (21:34)
[2019-05-07] MEDS: Levalbuterol Neb 1.25 MG/3 ML IH SCH ×5 (00:22→15:12)
[2019-05-07 01:15] LABS: Basophils # 0.1 K/mcL (0.0-0.2); Basophils % 0.6 %; Eosinophils % 0.2 %; Hematocrit 30.6 % (35.3-44.9); Hemoglobin 9.7 g/dL (11.5-15.4); Immature Granulocytes % 4.7 % (0-4); Lymphocytes # 2.6 K/mcL (0.6-4.6); Lymphocytes % 14.8 %; Mean Corpuscular HGB Conc 31.7 g/dL (31.6-35.5); Mean Corpuscular Hemoglobin 30.7 pg (28.0-33.3); Mean Corpuscular Volume 96.8 fL (83.0-100.0); Monocytes # 1.5 K/mcL (0.0-1.3); Monocytes % 8.3 %; Neutrophils # 12.6 K/mcL (1.6-8.9); Nucleated Red Blood Cells 0.2 /100 WBC (0); Platelet Count 219 K/mcL (140-400); Red Blood Count 3.16 M/mcL (3.82-4.97); Red Cell Distribution Width 12.1 % (11.5-14.5); Segmented Neutrophils % 71.4 %; White Blood Count 17.7 K/mcL (4.3-11.1)
[2019-05-07 01:36] LABS: Calcium 9.6 mg/dL (8.6-10.3); Potassium 3.8 mEq/L (3.5-5.1)
[2019-05-07] MEDS: *HR* Heparin 5,000 UNIT/ML VIAL SQ SCH (05:45)
[2019-05-07] MEDS: Budesonide/Formoterol 80/4.5 1 PUFF INH IH SCH (08:00)
[2019-05-07] MEDS: Gabapentin 300 MG CAPSULE PO SCH (08:27)
[2019-05-07] MEDS: Insulin LISPRO 300 UNITS/3 ML VIAL SQ SCH ×2 (08:27→12:34)
[2019-05-07] MEDS: Azithromycin 250 MG TABLET PO SCH (08:27)
[2019-05-07] MEDS ORDERED: PrednisoLONE Oral Soln 15 MG/5 ML UDC PO SCH (09:00)
[2019-05-07] MEDS ORDERED: amLODIPine 5 MG TABLET PO SCH (09:00)
[2019-05-07] MEDS: Acetaminophen 325 MG TABLET PO PRN (09:52)
[2019-05-07 11:38] VITALS: BP 111/70
[2019-05-07 12:48] LABS: Uric Acid 8.9 mg/dL (2.3-7.6)
[2019-05-07] MEDS ORDERED: Insulin DETEMIR 100 UNIT/ML X5UNITS SQ SCH (21:00)
== END 2019-05-07 18:05 | DRG 190 ==
LOC: 3BNU 10:32 → EMEROOARM 10:32 → 3BNU 13:58
PROVIDERS: ADMIT Internal Medicine; ATTEND Internal Medicine

== ENCOUNTER 2020-11-17 13:53 | Observation (INO) ==
[2020-11-17] MEDS ORDERED: Ipratropium/Albuterol Neb 3 ML IH ONE (14:04)
[2020-11-17 14:23] LABS: Basophils # 0.1 K/mcL (0.0-0.2); Basophils % 0.6 %; Eosinophils # 0.3 K/mcL (0.0-0.6); Eosinophils % 1.7 %; Hemoglobin 10.5 g/dL (11.5-15.4); Lymphocytes # 1.5 K/mcL (0.6-4.6); Lymphocytes % 8.8 %; Mean Corpuscular HGB Conc 30.9 g/dL (31.6-35.5); Mean Corpuscular Hemoglobin 29.5 pg (28.0-33.3); Mean Corpuscular Volume 95.5 fL (83.0-100.0); Mean Platelet Volume 10.7 fL (9.4-12.4); Monocytes % 6.1 %; Platelet Count 213 K/mcL (140-400); Red Blood Count 3.56 M/mcL (3.82-4.97); Red Cell Distribution Width 12.3 % (11.5-14.5); Segmented Neutrophils % 81.8 %; White Blood Count 17.2 K/mcL (4.3-11.1)
[2020-11-17 14:58] LABS: BUN/Creatinine Ratio 27 (6-26); Blood Urea Nitrogen 26 mg/dL (8-23); Calcium 9.8 mg/dL (8.6-10.3); Carbon Dioxide 34 mEq/L (23-29); Chloride 95 mEq/L (98-107); Glucose 157 mg/dL (70-105); Osmolality,Calculated 298 (280-300); Potassium 4.1 mEq/L (3.5-5.1); Sodium 140 mEq/L (136-145); Troponin I < 0.03 ng/mL (< 0.04); eGFR For African Americans > 60 (> 60); eGFR For Non-African Americans 56 (> 60)
[2020-11-17] MEDS ORDERED: Azithromycin 500 MG in D5% in Water 250 ML IVPB ONE (16:27)
[2020-11-17] MEDS ORDERED: cefTRIAXone 1,000 MG in Water for inj. (sterile) 10 ML IVP ONE (16:30)
[2020-11-17] MEDS ORDERED: methylPREDNISolone 125 MG/2 ML VIAL IVP ONE (17:44)
[2020-11-17] MEDS ORDERED: Ondansetron 4 MG/2 ML VIAL IVP PRN (17:50)
[2020-11-17] MEDS ORDERED: Naloxone 0.4 MG/ML INJ IVP PRN (17:50)
[2020-11-17] MEDS ORDERED: Dextrose Gel 15 GM/37.5 ML TUBE PO PRN ×2 (17:54)
[2020-11-17] MEDS ORDERED: D5% in Water 1,000 ML IVC PRN (17:54)
[2020-11-17] MEDS ORDERED: *HR* Dextrose 50 % in Water (Vial) 50 ML VIAL IVP PRN (17:54)
[2020-11-17 19:10] LABS: ABG Base Excess 13 mEq/L (-2 to 3); ABG HCO3 40 mEq/L (21-27); ABG Oxygen Saturation 96 % (95-98); ABG PCO2 70 mmHg (35-45); ABG PH 7.37 pH Units (7.32-7.45); ABG PO2 89 mmHg (85-104); ABG TCO2 42 mEq/L (20-26)
[2020-11-17] MEDS: *HR* Heparin 5,000 UNIT/ML VIAL SQ SCH (21:24)
[2020-11-17] MEDS: Ringers Solution, Lactated 1,000 ML IVC SCH (21:24)
[2020-11-17] MEDS: Ipratropium/Albuterol Neb 3 ML IH SCH ×2 (22:31→23:00)
[2020-11-17] MEDS: Budesonide/Formoterol 160/4.5 1 PUFF INH IH SCH (22:59)
[2020-11-18] MEDS: Ipratropium/Albuterol Neb 3 ML IH SCH ×5 (04:04→20:15)
[2020-11-18] MEDS: *HR* Heparin 5,000 UNIT/ML VIAL SQ SCH ×2 (05:20→16:57)
[2020-11-18] MEDS: Budesonide/Formoterol 160/4.5 1 PUFF INH IH SCH ×2 (07:40→20:17)
[2020-11-18 07:58] LABS: Basophils % 0.2 %; Eosinophils % 0.1 %; Hematocrit 29.8 % (35.3-44.9); Hemoglobin 9.1 g/dL (11.5-15.4); Immature Granulocytes % 1.2 % (0-4); Lymphocytes # 0.6 K/mcL (0.6-4.6); Lymphocytes % 3.8 %; Mean Corpuscular HGB Conc 30.5 g/dL (31.6-35.5); Mean Corpuscular Hemoglobin 29.4 pg (28.0-33.3); Mean Corpuscular Volume 96.4 fL (83.0-100.0); Mean Platelet Volume 11.3 fL (9.4-12.4); Monocytes # 0.2 K/mcL (0.0-1.3); Monocytes % 1.4 %; Neutrophils # 14.7 K/mcL (1.6-8.9); Platelet Count 199 K/mcL (140-400); Red Blood Count 3.09 M/mcL (3.82-4.97); Red Cell Distribution Width 12.3 % (11.5-14.5); Segmented Neutrophils % 93.3 %; White Blood Count 15.7 K/mcL (4.3-11.1)
[2020-11-18] MEDS: Ringers Solution, Lactated 1,000 ML IVC SCH (08:07)
[2020-11-18] MEDS: Insulin LISPRO 300 UNITS/3 ML VIAL SUBQ SCH ×3 (08:09→16:57)
[2020-11-18 08:28] LABS: BUN/Creatinine Ratio 28 (6-26); Blood Urea Nitrogen 26 mg/dL (8-23); Carbon Dioxide 40 mEq/L (23-29); Chloride 94 mEq/L (98-107); Glucose 292 mg/dL (70-105); Potassium 4.5 mEq/L (3.5-5.1); Sodium 138 mEq/L (136-145); eGFR For African Americans > 60 (> 60); eGFR For Non-African Americans 59 (> 60)
[2020-11-18 08:29] LABS: Calcium 9.4 mg/dL (8.6-10.3); Osmolality,Calculated 302 (280-300); Phosphorous 3.4 mg/dL (2.7-4.5)
[2020-11-18] MEDS ORDERED: levoFLOXacin 750 MG/150 ML 750 MG/150 ML BAG IVPB SCH (09:00)
[2020-11-18] MEDS ORDERED: Fluticasone Propionate Nasal 50 MCG/SPRAY BOTTLE NS PRN (14:16)
[2020-11-18] MEDS: Insulin DETEMIR 100 UNIT/ML X5UNITS SUBQ SCH (21:17)
[2020-11-18] MEDS: MethylPREDNISolone 40 MG/ML VIAL IVP SCH (21:36)
[2020-11-19] MEDS: Ipratropium/Albuterol Neb 3 ML IH SCH ×5 (00:38→15:43)
[2020-11-19] MEDS: *HR* Heparin 5,000 UNIT/ML VIAL SQ SCH (05:43)
[2020-11-19] MEDS: Budesonide/Formoterol 160/4.5 1 PUFF INH IH SCH (07:34)
[2020-11-19 07:57] LABS: Basophils # 0.1 K/mcL (0.0-0.2); Basophils % 0.3 %; Eosinophils % 0.1 %; Hemoglobin 9.2 g/dL (11.5-15.4); Immature Granulocytes % 1.8 % (0-4); Lymphocytes # 0.8 K/mcL (0.6-4.6); Lymphocytes % 4.4 %; Mean Corpuscular HGB Conc 30.7 g/dL (31.6-35.5); Mean Corpuscular Hemoglobin 29.9 pg (28.0-33.3); Mean Corpuscular Volume 97.4 fL (83.0-100.0); Mean Platelet Volume 11.4 fL (9.4-12.4); Monocytes # 0.5 K/mcL (0.0-1.3); Monocytes % 3.1 %; Neutrophils # 15.6 K/mcL (1.6-8.9); Platelet Count 202 K/mcL (140-400); Red Blood Count 3.08 M/mcL (3.82-4.97); Red Cell Distribution Width 12.3 % (11.5-14.5); Segmented Neutrophils % 90.3 %; White Blood Count 17.2 K/mcL (4.3-11.1)
[2020-11-19 08:13] LABS: BUN/Creatinine Ratio 28 (6-26); Blood Urea Nitrogen 29 mg/dL (8-23); Calcium 9.2 mg/dL (8.6-10.3); Carbon Dioxide 37 mEq/L (23-29); Chloride 97 mEq/L (98-107); Glucose 283 mg/dL (70-105); Osmolality,Calculated 304 (280-300); Phosphorous 3.1 mg/dL (2.7-4.5); Potassium 4.7 mEq/L (3.5-5.1); Sodium 139 mEq/L (136-145); eGFR For African Americans > 60 (> 60); eGFR For Non-African Americans 53 (> 60)
[2020-11-19] MEDS ORDERED: Cholecalciferol (D-3) 1,000 UNIT (25MCG) TABLET PO SCH (09:00)
[2020-11-19] MEDS ORDERED: Lisinopril-HCTZ 20-12.5mg TABLET PO SCH (09:00)
[2020-11-19] MEDS ORDERED: carvediloL 6.25 MG TABLET PO SCH (09:05)
[2020-11-19] MEDS: Insulin LISPRO 300 UNITS/3 ML VIAL SUBQ SCH ×2 (09:41→11:38)
[2020-11-19 10:54] VITALS: BP 163/85
[2020-11-19] MEDS: MethylPREDNISolone 40 MG/ML VIAL IVP SCH ×3 (10:57→15:42)
[2020-11-19] MEDS: Insulin DETEMIR 100 UNIT/ML X5UNITS SUBQ SCH (11:36)
[2020-11-19] MEDS ORDERED: levoFLOXacin 750 MG/150 ML 750 MG/150 ML BAG IVPB SCH (12:00)
== END 2020-11-19 17:45 | disposition home health service (06) ==
LOC: 2NENU 13:53 → EMEROOARM 13:53 → SUATTDRO 20:10 → 2NENU 20:42
PROVIDERS: ADMIT Internal Medicine; ATTEND Internal Medicine

== ENCOUNTER 2021-03-10 12:33 | Inpatient (IN) ==
[2021-03-10 14:36] LABS: Basophils # 0.1 K/mcL (0.0-0.2); Basophils % 0.4 %; Eosinophils # 0.2 K/mcL (0.0-0.6); Eosinophils % 1.5 %; Hematocrit 30.4 % (35.3-44.9); Immature Granulocytes % 0.7 % (0-4); Lymphocytes # 1.2 K/mcL (0.6-4.6); Lymphocytes % 10.4 %; Mean Corpuscular HGB Conc 29.6 g/dL (31.6-35.5); Mean Corpuscular Hemoglobin 29.7 pg (28.0-33.3); Mean Corpuscular Volume 100.3 fL (83.0-100.0); Monocytes # 1.2 K/mcL (0.0-1.3); Neutrophils # 9.1 K/mcL (1.6-8.9); Platelet Count 150 K/mcL (140-400); Red Blood Count 3.03 M/mcL (3.82-4.97); Red Cell Distribution Width 12.8 % (11.5-14.5); White Blood Count 11.8 K/mcL (4.3-11.1)
[2021-03-10 14:52] LABS: VBG HCO3 40 mEq/L (21-27); VBG PCO2 81 mmHg (41-51); VBG PO2 81 mmHg (25-50)
[2021-03-10 15:01] LABS: Alanine Aminotransferase 6 Units/L (7-52); Albumin 3.9 g/dL (3.5-5.7); Albumin/Globulin Ratio 1.3 (1.1-2.2); Alkaline Phosphatase 60 Units/L (34-104); Aspartate Amino Transferase 13 Units/L (13-39); BUN/Creatinine Ratio 24 (6-26); Bilirubin,Total 0.2 mg/dL (0.3-1.0); Blood Urea Nitrogen 26 mg/dL (8-23); Calcium 8.9 mg/dL (8.6-10.3); Carbon Dioxide 41 mEq/L (23-29); Chloride 97 mEq/L (98-107); Glucose 159 mg/dL (70-105); Osmolality,Calculated 298 (280-300); Sodium 140 mEq/L (136-145); Total Protein 6.9 g/dL (6.4-8.9); eGFR For African Americans > 60 (> 60); eGFR For Non-African Americans 50 (> 60)
[2021-03-10 15:07] LABS: Influenza A PCR Negative (Negative); Influenza B PCR Negative (Negative); Resp. Syncytial Virus PCR Negative (Negative)
[2021-03-10 15:08] LABS: SARS-CoV-2 by PCR (In House) Negative (Negative)
[2021-03-10] MEDS ORDERED: Ipratropium/Albuterol Neb 3 ML IH ONE (15:13)
[2021-03-10] MEDS ORDERED: methylPREDNISolone 125 MG/2 ML VIAL IVP ONE (15:14)
[2021-03-10] MEDS ORDERED: *HR* HYDROcodone/Acet 5/325 mg TABLET PO PRN (17:17)
[2021-03-10] MEDS ORDERED: Ondansetron 4 MG/2 ML VIAL IVP PRN (17:17)
[2021-03-10] MEDS ORDERED: Mag Hydrox/Al Hydrox/Simeth 30 ML UDC PO PRN (17:17)
[2021-03-10] MEDS ORDERED: Naloxone 0.4 MG/ML INJ IVP PRN (17:17)
[2021-03-10] MEDS ORDERED: Fluticasone Propionate Nasal 50 MCG/SPRAY BOTTLE NS PRN (17:22)
[2021-03-10] MEDS ORDERED: SECUKINUMAB 150 MG/ML SQ SCH (17:30)
[2021-03-10 18:56] LABS: Thyroid Stimulating Hormone 3.376 mcIU/mL (0.340-5.600)
[2021-03-10] MEDS: Ipratropium/Albuterol Neb 3 ML IH SCH (21:04)
[2021-03-10] MEDS: Budesonide/Formoterol 160/4.5 1 PUFF INH IH SCH (21:36)
[2021-03-11] MEDS: MethylPREDNISolone 40 MG/ML VIAL IVP SCH ×4 (00:01→23:22)
[2021-03-11] MEDS: Ipratropium/Albuterol Neb 3 ML IH SCH ×7 (00:04→23:50)
[2021-03-11 01:47] LABS: Basophils % 0.2 %; Eosinophils % 0.1 %; Hematocrit 28.5 % (35.3-44.9); Hemoglobin 8.6 g/dL (11.5-15.4); Immature Granulocytes % 0.9 % (0-4); Lymphocytes # 0.6 K/mcL (0.6-4.6); Lymphocytes % 5.3 %; Mean Corpuscular HGB Conc 30.2 g/dL (31.6-35.5); Mean Corpuscular Hemoglobin 29.9 pg (28.0-33.3); Monocytes # 0.2 K/mcL (0.0-1.3); Monocytes % 1.6 %; Neutrophils # 9.6 K/mcL (1.6-8.9); Platelet Count 150 K/mcL (140-400); Red Blood Count 2.88 M/mcL (3.82-4.97); Red Cell Distribution Width 12.5 % (11.5-14.5); Segmented Neutrophils % 91.9 %; White Blood Count 10.5 K/mcL (4.3-11.1)
[2021-03-11 02:05] LABS: Albumin 3.7 g/dL (3.5-5.7); Albumin/Globulin Ratio 1.3 (1.1-2.2); Bilirubin,Total 0.3 mg/dL (0.3-1.0); Calcium 8.7 mg/dL (8.6-10.3); Globulin 2.9 g/dL (2.4-3.5); Potassium 4.3 mEq/L (3.5-5.1); Total Protein 6.6 g/dL (6.4-8.9)
[2021-03-11] MEDS: Budesonide/Formoterol 160/4.5 1 PUFF INH IH SCH ×2 (07:35→19:51)
[2021-03-11] MEDS: Cholecalciferol (D-3) 1,000 UNIT (25MCG) TABLET PO SCH (10:12)
[2021-03-11] MEDS: levoFLOXacin 750 MG TABLET PO SCH (10:13)
[2021-03-11] MEDS: Lisinopril-HCTZ 20-12.5mg TABLET PO SCH (10:13)
[2021-03-11] MEDS: GlipiZIDE 5 MG TABLET PO SCH ×2 (10:14→16:49)
[2021-03-11] MEDS: *HR* Enoxaparin 40 MG/0.4 ML SYRINGE SQ SCH (10:20)
[2021-03-11 10:32] LABS: VBG HCO3 42 mEq/L (21-27); VBG PCO2 85 mmHg (41-51); VBG PO2 45 mmHg (25-50)
[2021-03-11] MEDS: Acetaminophen 325 MG TABLET PO PRN ×2 (16:49→23:21)
[2021-03-12] MEDS: Ipratropium/Albuterol Neb 3 ML IH SCH ×6 (04:08→22:57)
[2021-03-12] MEDS: *HR* Enoxaparin 40 MG/0.4 ML SYRINGE SQ SCH (06:05)
[2021-03-12] MEDS: Budesonide/Formoterol 160/4.5 1 PUFF INH IH SCH ×2 (08:23→20:01)
[2021-03-12] MEDS: GlipiZIDE 5 MG TABLET PO SCH ×2 (08:26→17:17)
[2021-03-12] MEDS: Acetaminophen 325 MG TABLET PO PRN ×2 (08:26→23:05)
[2021-03-12] MEDS: MethylPREDNISolone 40 MG/ML VIAL IVP SCH ×3 (08:27→23:05)
[2021-03-12 09:18] LABS: Basophils % 0.2 %; Hematocrit 28.6 % (35.3-44.9); Hemoglobin 8.7 g/dL (11.5-15.4); Immature Granulocytes % 1.7 % (0-4); Lymphocytes # 0.9 K/mcL (0.6-4.6); Lymphocytes % 5.5 %; Mean Corpuscular HGB Conc 30.4 g/dL (31.6-35.5); Mean Corpuscular Hemoglobin 29.6 pg (28.0-33.3); Mean Corpuscular Volume 97.3 fL (83.0-100.0); Mean Platelet Volume 11.5 fL (9.4-12.4); Monocytes # 0.7 K/mcL (0.0-1.3); Monocytes % 4.2 %; Neutrophils # 15.1 K/mcL (1.6-8.9); Nucleated Red Blood Cells 0.2 /100 WBC (0); Platelet Count 178 K/mcL (140-400); Red Blood Count 2.94 M/mcL (3.82-4.97); Red Cell Distribution Width 12.5 % (11.5-14.5); Segmented Neutrophils % 88.4 %
[2021-03-12 09:21] LABS: White Blood Count 17.1 K/mcL (4.3-11.1)
[2021-03-12 09:26] LABS: VBG HCO3 36 mEq/L (21-27); VBG PCO2 66 mmHg (41-51); VBG PH 7.35 pH Units (7.32-7.42); VBG PO2 69 mmHg (25-50)
[2021-03-12 09:53] LABS: Calcium 9.2 mg/dL (8.6-10.3); Potassium 4.7 mEq/L (3.5-5.1)
[2021-03-12] MEDS: levoFLOXacin 750 MG TABLET PO SCH (10:27)
[2021-03-12] MEDS: Lisinopril-HCTZ 20-12.5mg TABLET PO SCH (10:27)
[2021-03-12] MEDS: Cholecalciferol (D-3) 1,000 UNIT (25MCG) TABLET PO SCH (10:28)
[2021-03-12] MEDS ORDERED: Ipratropium/Albuterol Neb 3 ML ONE (11:01)
[2021-03-12] MEDS ORDERED: Dextrose Gel 15 GM/37.5 ML TUBE PO PRN ×2 (14:00)
[2021-03-12] MEDS ORDERED: *HR* Dextrose 50 % in Water (Syg) 50 ML SYRINGE IVP PRN (14:00)
[2021-03-12] MEDS ORDERED: D5% in Water 1,000 ML IVC PRN (14:00)
[2021-03-12 15:42] LABS: ABG Base Excess 15 mEq/L (-2 to 3); ABG HCO3 41 mEq/L (21-27); ABG Oxygen Saturation 97 % (95-98); ABG PCO2 66 mmHg (35-45); ABG PH 7.41 pH Units (7.32-7.45); ABG PO2 95 mmHg (85-104); ABG TCO2 43 mEq/L (20-26)
[2021-03-12] MEDS ORDERED: Insulin LISPRO 300 UNITS/3 ML VIAL SUBQ SCH (21:00)
[2021-03-13 01:33] LABS: Basophils % 0.2 %; Hematocrit 27.9 % (35.3-44.9); Hemoglobin 8.5 g/dL (11.5-15.4); Lymphocytes # 0.7 K/mcL (0.6-4.6); Lymphocytes % 4.3 %; Mean Corpuscular HGB Conc 30.5 g/dL (31.6-35.5); Mean Corpuscular Hemoglobin 29.3 pg (28.0-33.3); Mean Corpuscular Volume 96.2 fL (83.0-100.0); Mean Platelet Volume 11.2 fL (9.4-12.4); Monocytes # 0.6 K/mcL (0.0-1.3); Monocytes % 3.6 %; Neutrophils # 14.9 K/mcL (1.6-8.9); Platelet Count 187 K/mcL (140-400); Red Cell Distribution Width 12.6 % (11.5-14.5); Segmented Neutrophils % 88.9 %; White Blood Count 16.8 K/mcL (4.3-11.1)
[2021-03-13] MEDS: Ipratropium/Albuterol Neb 3 ML IH SCH ×4 (03:40→15:47)
[2021-03-13 06:48] VITALS: BP 123/78; PULSE 80; TEMP 97.7
[2021-03-13] MEDS: *HR* Enoxaparin 40 MG/0.4 ML SYRINGE SQ SCH (07:15)
[2021-03-13] MEDS: Budesonide/Formoterol 160/4.5 1 PUFF INH IH SCH (07:40)
[2021-03-13] MEDS: GlipiZIDE 5 MG TABLET PO SCH ×2 (08:18→18:09)
[2021-03-13] MEDS: MethylPREDNISolone 40 MG/ML VIAL IVP SCH (08:19)
[2021-03-13] MEDS: Cholecalciferol (D-3) 1,000 UNIT (25MCG) TABLET PO SCH (08:19)
[2021-03-13] MEDS: Lisinopril-HCTZ 20-12.5mg TABLET PO SCH (08:19)
[2021-03-13 08:57] LABS: VBG HCO3 36 mEq/L (21-27); VBG PCO2 62 mmHg (41-51); VBG PH 7.37 pH Units (7.32-7.42); VBG PO2 61 mmHg (25-50)
[2021-03-13 09:09] LABS: Calcium 9.3 mg/dL (8.6-10.3); Potassium 4.1 mEq/L (3.5-5.1)
[2021-03-13 15:51] VITALS: O2SAT 98
[2021-03-14] MEDS ORDERED: predniSONE 20 MG TABLET PO SCH (09:00)
[2021-03-14] MEDS ORDERED: levoFLOXacin 750 MG TABLET PO SCH (09:00)
== END 2021-03-13 19:10 | disposition home or self-care (01) | DRG 189 ==
LOC: EMEROOARM 12:33 → 2ANU 12:33 → SUATTDRO 20:23 → 2ANU 21:11
PROVIDERS: ADMIT Internal Medicine; ATTEND Internal Medicine

== ENCOUNTER 2021-03-20 06:12 | Inpatient (IN) ==
[2021-03-20] MEDS ORDERED: *HR* FentaNYL (PF) 100 MCG/2 ML VIAL IVP ONE (07:02)
[2021-03-20] MEDS ORDERED: Ondansetron 4 MG/2 ML VIAL IVP PRN (08:27)
[2021-03-20] MEDS ORDERED: Naloxone 0.4 MG/ML INJ IVP PRN (08:27)
[2021-03-20] MEDS ORDERED: *HR* FentaNYL (PF) 100 MCG/2 ML VIAL IVP PRN ×2 (08:29→08:52)
[2021-03-20 08:45] LABS: Basophils # 0.1 K/mcL (0.0-0.2); Basophils % 0.4 %; Eosinophils # 0.2 K/mcL (0.0-0.6); Eosinophils % 0.7 %; Hematocrit 30.9 % (35.3-44.9); Hemoglobin 9.2 g/dL (11.5-15.4); Immature Granulocytes % 2.8 % (0-4); Lymphocytes # 2.8 K/mcL (0.6-4.6); Lymphocytes % 13.2 %; Mean Corpuscular HGB Conc 29.8 g/dL (31.6-35.5); Mean Corpuscular Hemoglobin 29.6 pg (28.0-33.3); Mean Corpuscular Volume 99.4 fL (83.0-100.0); Mean Platelet Volume 11.2 fL (9.4-12.4); Monocytes # 1.6 K/mcL (0.0-1.3); Monocytes % 7.6 %; Neutrophils # 15.9 K/mcL (1.6-8.9); Platelet Count 213 K/mcL (140-400); Red Blood Count 3.11 M/mcL (3.82-4.97); Red Cell Distribution Width 12.6 % (11.5-14.5); Segmented Neutrophils % 75.3 %; White Blood Count 21.1 K/mcL (4.3-11.1)
[2021-03-20] MEDS ORDERED: *HR* HYDROcodone/Acet 5/325 mg TABLET PO PRN (08:51)
[2021-03-20 09:03] LABS: Calcium 9.7 mg/dL (8.6-10.3); Potassium 4.5 mEq/L (3.5-5.1)
[2021-03-20] MEDS: *HR* HYDROcodone/Acet 5/325 mg TABLET PO PRN (17:38)
[2021-03-20] MEDS ORDERED: 0.9 % Sodium Chloride 1,000 ML IVC SCH (20:30)
[2021-03-20] MEDS: Acetaminophen 325 MG TABLET PO PRN (22:59)
[2021-03-21] MEDS: *HR* HYDROcodone/Acet 5/325 mg TABLET PO PRN (00:47)
[2021-03-21] MEDS ORDERED: *HR* Midazolam HCl 2 MG/2 ML VIAL ONE (07:21)
[2021-03-21] MEDS ORDERED: *HR* FentaNYL (PF) 100 MCG/2 ML VIAL ONE (07:22)
[2021-03-21] MEDS ORDERED: Lidocaine -MPF 2% 5 ML VIAL ONE (07:22)
[2021-03-21] MEDS ORDERED: Ropivacaine/PF 0.5% 30 ML VIAL ONE (07:39)
[2021-03-21] MEDS ORDERED: ROPIVACAINE/PF/NS 0.25% 1 EACH SYRINGE INTRAART ONE (07:39)
[2021-03-21] MEDS ORDERED: Ipratropium/Albuterol Neb 3 ML ONE (07:58)
[2021-03-21] MEDS ORDERED: Acetaminophen IV 1,000 MG/100 ML BAG IVPB PRN (08:32)
[2021-03-21] MEDS ORDERED: Morphine Sulfate 2 MG/ML SYRINGE IVP PRN (08:32)
[2021-03-21] MEDS ORDERED: Ondansetron 4 MG/2 ML VIAL IVP PRN (08:32)
[2021-03-21] MEDS ORDERED: Albuterol 2.5 MG/3 ML NEBULIZER IH PRN (08:32)
[2021-03-21] MEDS ORDERED: Dexmedetomidine HCl 400 MCG/100 ML MLS IVC ONE (08:36)
[2021-03-21] MEDS ORDERED: Dexmedetomidine HCl 0 MCG/0 ML MLS IVC ONE (08:37)
[2021-03-21] MEDS ORDERED: Acetaminophen IV 1,000 MG/100 ML BAG IVPB ONE (09:20)
[2021-03-21] MEDS ORDERED: Ondansetron 4 MG/2 ML VIAL ONE (09:47)
[2021-03-21] MEDS ORDERED: *HR* Vasopressin 20 UNIT/ML VIAL ONE (11:07)
[2021-03-21 12:16] LABS: Basophils % 0.1 %; Immature Granulocytes % 2.1 % (0-4)
[2021-03-21 12:18] LABS: Eosinophils # 0.1 K/mcL (0.0-0.6); Eosinophils % 0.3 %; Hematocrit 25.5 % (35.3-44.9); Hemoglobin 7.6 g/dL (11.5-15.4); Lymphocytes % 3.6 %; Mean Corpuscular HGB Conc 29.8 g/dL (31.6-35.5); Mean Corpuscular Hemoglobin 29.6 pg (28.0-33.3); Mean Corpuscular Volume 99.2 fL (83.0-100.0); Mean Platelet Volume 11.3 fL (9.4-12.4); Monocytes # 1.1 K/mcL (0.0-1.3); Neutrophils # 24.9 K/mcL (1.6-8.9); Platelet Count 151 K/mcL (140-400); Red Blood Count 2.57 M/mcL (3.82-4.97); Red Cell Distribution Width 12.6 % (11.5-14.5); Segmented Neutrophils % 89.9 %; White Blood Count 27.7 K/mcL (4.3-11.1)
[2021-03-21 12:34] LABS: Calcium 8.4 mg/dL (8.6-10.3); Potassium 5.3 mEq/L (3.5-5.1)
[2021-03-21 12:43] LABS: Anisocytosis 1+ (Not Present); Platelet Estimate Normal (Normal)
[2021-03-21] MEDS ORDERED: Ringers Solution, Lactated 500 ML IVC ONE (13:00)
[2021-03-21] MEDS ORDERED: Ringers Solution, Lactated 250 ML IVC ONE (13:00)
[2021-03-21] MEDS ORDERED: D5% in Water 1,000 ML IVC PRN (13:03)
[2021-03-21] MEDS ORDERED: Dextrose Gel 15 GM/37.5 ML TUBE PO PRN ×2 (13:03)
[2021-03-21] MEDS ORDERED: *HR* Dextrose 50 % in Water (Syg) 50 ML SYRINGE IVP PRN (13:03)
[2021-03-21] MEDS: Ringers Solution, Lactated 1,000 ML IVC SCH (13:30)
[2021-03-21] MEDS: Insulin LISPRO 300 UNITS/3 ML VIAL SUBQ SCH (15:41)
[2021-03-21 16:35] LABS: Hematocrit 26.2 % (35.3-44.9); Hemoglobin 7.9 g/dL (11.5-15.4)
[2021-03-21] MEDS ORDERED: Calcium Gluconate 1gm/50mL 1 GM/50 ML BAG IVPB ONE (17:07)
[2021-03-21] MEDS ORDERED: Albuterol 2.5 MG/3 ML NEBULIZER IH ONE ×2 (17:07→18:45)
[2021-03-21] MEDS ORDERED: *HR* Heparin 5,000 UNIT/ML VIAL SQ SCH (18:00)
[2021-03-22] MEDS ORDERED: Melatonin 3 MG TABLET PO PRN (02:41)
[2021-03-22 07:04] LABS: Basophils # 0.1 K/mcL (0.0-0.2); Basophils % 0.2 %; Eosinophils % 0.1 %; Hematocrit 27.4 % (35.3-44.9); Hemoglobin 8.4 g/dL (11.5-15.4); Immature Granulocytes % 1.2 % (0-4); Lymphocytes % 4.6 %; Mean Corpuscular HGB Conc 30.7 g/dL (31.6-35.5); Mean Corpuscular Hemoglobin 29.5 pg (28.0-33.3); Mean Corpuscular Volume 96.1 fL (83.0-100.0); Mean Platelet Volume 11.2 fL (9.4-12.4); Monocytes % 6.8 %; Platelet Count 169 K/mcL (140-400); Red Blood Count 2.85 M/mcL (3.82-4.97); Red Cell Distribution Width 12.5 % (11.5-14.5); Segmented Neutrophils % 87.1 %; White Blood Count 29.2 K/mcL (4.3-11.1)
[2021-03-22 07:05] LABS: Lymphocytes # 1.3 K/mcL (0.6-4.6); Neutrophils # 25.4 K/mcL (1.6-8.9)
[2021-03-22 07:07] LABS: VBG HCO3 36 mEq/L (21-27); VBG PCO2 56 mmHg (41-51); VBG PH 7.41 pH Units (7.32-7.42); VBG PO2 60 mmHg (25-50)
[2021-03-22] MEDS: Ringers Solution, Lactated 1,000 ML IVC SCH (07:21)
[2021-03-22] MEDS: Insulin LISPRO 300 UNITS/3 ML VIAL SUBQ SCH ×3 (08:10→17:50)
[2021-03-22 09:00] LABS: Calcium 9.1 mg/dL (8.6-10.3); Magnesium 1.8 mg/dL (1.6-2.6); Potassium 4.6 mEq/L (3.5-5.1)
[2021-03-22] MEDS ORDERED: ceFAZolin 2,000 MG in 0.9 % Sodium Chloride 100 ML IVPB SCH ×2 (14:00→16:00)
[2021-03-22 14:27] LABS: Bacteria,Urine Few per hpf (None-Few); Bilirubin,Urine Negative (Negative); Blood,Urine Trace (Negative); Clarity,Urine Clear (Clear); Color,Urine Light-Yellow (Yellow); Glucose,Urine (UA) 300 mg/dL (Normal); Ketones,Urine Negative (Negative); Leukocyte Esterase,Urine Large (Negative); Nitrite,Urine Negative (Negative); Protein,Urine 30 mg/dL (Neg-Trace); RBC,Urine 0-3 per hpf (0-3); Specific Gravity,Urine 1.022 (1.010-1.025); Squamous Epithelial Cell,Urine Few per hpf (None-Few); Urobilinogen,Urine Normal (Normal)
[2021-03-22] MEDS: *HR* HYDROcodone/Acet 5/325 mg TABLET PO PRN (15:40)
[2021-03-22] MEDS ORDERED: Fluticasone Propionate Nasal 50 MCG/SPRAY BOTTLE NS PRN (18:15)
[2021-03-22] MEDS: cefTRIAXone 1,000 MG in 0.9 % Sodium Chloride Mini Bag 100 ML IVPB SCH (20:34)
[2021-03-22] MEDS: Acetaminophen 325 MG TABLET PO PRN (22:12)
[2021-03-23 07:49] LABS: Basophils % 0.2 %; Eosinophils # 0.2 K/mcL (0.0-0.6); Eosinophils % 0.9 %; Hematocrit 26.7 % (35.3-44.9); Immature Granulocytes % 0.8 % (0-4); Lymphocytes # 2.1 K/mcL (0.6-4.6); Lymphocytes % 10.3 %; Mean Corpuscular Hemoglobin 29.7 pg (28.0-33.3); Mean Corpuscular Volume 99.3 fL (83.0-100.0); Mean Platelet Volume 11.4 fL (9.4-12.4); Monocytes # 1.4 K/mcL (0.0-1.3); Monocytes % 7.2 %; Neutrophils # 16.1 K/mcL (1.6-8.9); Platelet Count 171 K/mcL (140-400); Red Blood Count 2.69 M/mcL (3.82-4.97); Red Cell Distribution Width 12.7 % (11.5-14.5); Segmented Neutrophils % 80.6 %
[2021-03-23 08:30] LABS: Calcium 9.2 mg/dL (8.6-10.3); Magnesium 1.8 mg/dL (1.6-2.6)
[2021-03-23] MEDS: Insulin LISPRO 300 UNITS/3 ML VIAL SUBQ SCH ×3 (08:43→17:07)
[2021-03-23] MEDS: Furosemide 40 MG TABLET PO SCH (08:44)
[2021-03-23] MEDS: Lisinopril-HCTZ 20-12.5mg TABLET PO SCH (08:44)
[2021-03-23] MEDS: *HR* HYDROcodone/Acet 5/325 mg TABLET PO PRN ×2 (14:37→20:35)
[2021-03-23] MEDS: *HR* Enoxaparin 100 MG/ML SYRINGE SQ SCH (17:00)
[2021-03-23] MEDS: cefTRIAXone 1,000 MG in 0.9 % Sodium Chloride Mini Bag 100 ML IVPB SCH (20:36)
[2021-03-24] MEDS: *HR* Enoxaparin 100 MG/ML SYRINGE SQ SCH (06:31)
[2021-03-24 07:50] LABS: Basophils % 0.2 %; Eosinophils # 0.3 K/mcL (0.0-0.6); Eosinophils % 1.6 %; Hematocrit 28.1 % (35.3-44.9); Hemoglobin 8.4 g/dL (11.5-15.4); Immature Granulocytes % 0.7 % (0-4); Lymphocytes # 1.4 K/mcL (0.6-4.6); Lymphocytes % 8.3 %; Mean Corpuscular HGB Conc 29.9 g/dL (31.6-35.5); Mean Corpuscular Hemoglobin 29.5 pg (28.0-33.3); Mean Corpuscular Volume 98.6 fL (83.0-100.0); Mean Platelet Volume 11.4 fL (9.4-12.4); Monocytes # 1.3 K/mcL (0.0-1.3); Monocytes % 7.5 %; Neutrophils # 13.5 K/mcL (1.6-8.9); Platelet Count 171 K/mcL (140-400); Red Blood Count 2.85 M/mcL (3.82-4.97); Red Cell Distribution Width 12.6 % (11.5-14.5); Segmented Neutrophils % 81.7 %; White Blood Count 16.6 K/mcL (4.3-11.1)
[2021-03-24 08:12] LABS: BUN/Creatinine Ratio 29 (6-26); Blood Urea Nitrogen 30 mg/dL (8-23); Carbon Dioxide 42 mEq/L (23-29); Chloride 93 mEq/L (98-107); Glucose 131 mg/dL (70-105); Osmolality,Calculated 302 (280-300); Potassium 3.8 mEq/L (3.5-5.1); Sodium 142 mEq/L (136-145); eGFR For African Americans > 60 (> 60); eGFR For Non-African Americans 52 (> 60)
[2021-03-24] MEDS: Insulin LISPRO 300 UNITS/3 ML VIAL SUBQ SCH ×2 (11:47→16:18)
[2021-03-24] MEDS: *HR* HYDROcodone/Acet 5/325 mg TABLET PO PRN (13:56)
[2021-03-24] MEDS: cefTRIAXone 1,000 MG in 0.9 % Sodium Chloride Mini Bag 100 ML IVPB SCH (21:22)
[2021-03-25] MEDS: *HR* HYDROcodone/Acet 5/325 mg TABLET PO PRN ×2 (03:41→15:30)
[2021-03-25] MEDS: *HR* Rivaroxaban 10 MG TABLET PO SCH (05:51)
[2021-03-25 07:49] LABS: Hematocrit 30.2 % (35.3-44.9); Hemoglobin 8.9 g/dL (11.5-15.4); Mean Corpuscular HGB Conc 29.5 g/dL (31.6-35.5); Mean Corpuscular Hemoglobin 29.5 pg (28.0-33.3); Mean Platelet Volume 10.7 fL (9.4-12.4); Platelet Count 184 K/mcL (140-400); Red Blood Count 3.02 M/mcL (3.82-4.97); Red Cell Distribution Width 12.3 % (11.5-14.5); White Blood Count 14.9 K/mcL (4.3-11.1)
[2021-03-25] MEDS: Furosemide 40 MG TABLET PO SCH (08:17)
[2021-03-25] MEDS: Insulin LISPRO 300 UNITS/3 ML VIAL SUBQ SCH ×3 (08:17→17:22)
[2021-03-25] MEDS: Lisinopril-HCTZ 20-12.5mg TABLET PO SCH (08:17)
[2021-03-25 08:40] LABS: BUN/Creatinine Ratio 30 (6-26); Blood Urea Nitrogen 30 mg/dL (8-23); Carbon Dioxide > 45 mEq/L (23-29); Chloride 91 mEq/L (98-107); Glucose 165 mg/dL (70-105); Osmolality,Calculated 306 (280-300); Potassium 3.5 mEq/L (3.5-5.1); Sodium 143 mEq/L (136-145); eGFR For African Americans > 60 (> 60); eGFR For Non-African Americans 55 (> 60)
[2021-03-25] MEDS: cefTRIAXone 1,000 MG in 0.9 % Sodium Chloride Mini Bag 100 ML IVPB SCH (22:29)
[2021-03-26 03:10] LABS: BUN/Creatinine Ratio 29 (6-26); Blood Urea Nitrogen 34 mg/dL (8-23); Calcium 9.5 mg/dL (8.6-10.3); Chloride 89 mEq/L (98-107); Glucose 163 mg/dL (70-105); Osmolality,Calculated 309 (280-300); Potassium 3.4 mEq/L (3.5-5.1); Sodium 144 mEq/L (136-145); eGFR For African Americans 56 (> 60); eGFR For Non-African Americans 46 (> 60)
[2021-03-26 03:14] LABS: Carbon Dioxide > 45 mEq/L (23-29)
[2021-03-26 03:45] LABS: Hematocrit 27.3 % (35.3-44.9); Hemoglobin 8.2 g/dL (11.5-15.4); Mean Corpuscular Hemoglobin 30.3 pg (28.0-33.3); Mean Corpuscular Volume 100.7 fL (83.0-100.0); Mean Platelet Volume 10.9 fL (9.4-12.4); Platelet Count 193 K/mcL (140-400); Red Blood Count 2.71 M/mcL (3.82-4.97); Red Cell Distribution Width 12.5 % (11.5-14.5); White Blood Count 16.9 K/mcL (4.3-11.1)
[2021-03-26] MEDS: *HR* Rivaroxaban 10 MG TABLET PO SCH (06:32)
[2021-03-26] MEDS: Ringers Solution, Lactated 1,000 ML IVC SCH ×2 (07:23→07:24)
[2021-03-26] MEDS: Insulin LISPRO 300 UNITS/3 ML VIAL SUBQ SCH ×3 (08:03→17:40)
[2021-03-26] MEDS: Furosemide 40 MG TABLET PO SCH (08:03)
[2021-03-26] MEDS: Lisinopril-HCTZ 20-12.5mg TABLET PO SCH (08:03)
[2021-03-26 10:43] LABS: ABG Base Excess 26 mEq/L (-2 to 3); ABG HCO3 56 mEq/L (21-27); ABG Oxygen Saturation 99 % (95-98); ABG PCO2 104 mmHg (35-45); ABG PH 7.34 pH Units (7.32-7.45); ABG PO2 171 mmHg (85-104); ABG TCO2 > 50 mEq/L (20-26)
[2021-03-26] MEDS: Acetaminophen 325 MG TABLET PO PRN (20:03)
[2021-03-27 04:58] LABS: Hematocrit 26.5 % (35.3-44.9); Hemoglobin 7.8 g/dL (11.5-15.4); Mean Corpuscular HGB Conc 29.4 g/dL (31.6-35.5); Mean Corpuscular Hemoglobin 29.5 pg (28.0-33.3); Mean Corpuscular Volume 100.4 fL (83.0-100.0); Mean Platelet Volume 10.6 fL (9.4-12.4); Platelet Count 188 K/mcL (140-400); Red Blood Count 2.64 M/mcL (3.82-4.97); Red Cell Distribution Width 12.5 % (11.5-14.5); White Blood Count 13.2 K/mcL (4.3-11.1)
[2021-03-27 05:25] LABS: BUN/Creatinine Ratio 31 (6-26); Blood Urea Nitrogen 33 mg/dL (8-23); Calcium 9.3 mg/dL (8.6-10.3); Carbon Dioxide > 45 mEq/L (23-29); Chloride 87 mEq/L (98-107); Glucose 178 mg/dL (70-105); Osmolality,Calculated 308 (280-300); Potassium 3.4 mEq/L (3.5-5.1); Sodium 143 mEq/L (136-145); eGFR For African Americans > 60 (> 60); eGFR For Non-African Americans 52 (> 60)
[2021-03-27] MEDS: *HR* Rivaroxaban 10 MG TABLET PO SCH (05:54)
[2021-03-27] MEDS: Lisinopril-HCTZ 20-12.5mg TABLET PO SCH (09:26)
[2021-03-27] MEDS: Furosemide 40 MG TABLET PO SCH (09:26)
[2021-03-27] MEDS: Insulin LISPRO 300 UNITS/3 ML VIAL SUBQ SCH ×3 (09:26→18:13)
[2021-03-27] MEDS: *HR* HYDROcodone/Acet 5/325 mg TABLET PO PRN (15:16)
[2021-03-27 19:26] VITALS: BP 103/62; PULSE 86; TEMP 97.8; O2SAT 98
== END 2021-03-27 19:30 | DRG 492 ==
LOC: 4WAOSI 06:12 → EMEROOARM 06:12 → SUATTDRO 08:36 → 4WAOSI 09:21 → SUATTDRO 03-22 13:20
PROVIDERS: ADMIT Student in an Organized Health Care Education/Training Program; ATTEND Family Medicine

== ENCOUNTER 2021-05-04 13:58 | Inpatient (IN) ==
[2021-05-04] MEDS ORDERED: Ipratropium/Albuterol Neb 3 ML IH ONE (14:39)
[2021-05-04] MEDS ORDERED: cefTRIAXone 1,000 MG in Water for inj. (sterile) 10 ML IVP ONE (14:39)
[2021-05-04] MEDS ORDERED: Azithromycin 500 MG in 0.9 % Sodium Chloride 250 ML IVPB ONE (14:39)
[2021-05-04] MEDS ORDERED: methylPREDNISolone 125 MG/2 ML VIAL IVP ONE (14:39)
[2021-05-04 15:02] LABS: Basophils # 0.1 K/mcL (0.0-0.2); Basophils % 0.5 %; Eosinophils # 0.4 K/mcL (0.0-0.6); Hematocrit 30.7 % (35.3-44.9); Hemoglobin 9.2 g/dL (11.5-15.4); Immature Granulocytes % 0.7 % (0-4); Lymphocytes # 1.5 K/mcL (0.6-4.6); Lymphocytes % 8.2 %; Mean Corpuscular Hemoglobin 30.9 pg (28.0-33.3); Mean Platelet Volume 11.4 fL (9.4-12.4); Monocytes # 1.2 K/mcL (0.0-1.3); Monocytes % 6.7 %; Neutrophils # 14.5 K/mcL (1.6-8.9); Platelet Count 246 K/mcL (140-400); Red Blood Count 2.98 M/mcL (3.82-4.97); Red Cell Distribution Width 14.3 % (11.5-14.5); Segmented Neutrophils % 81.9 %; White Blood Count 17.7 K/mcL (4.3-11.1)
[2021-05-04 15:10] LABS: INR 1.1
[2021-05-04 15:12] LABS: Activated Partial Thrombo Time 27.4 Seconds (26.0-36.0)
[2021-05-04 15:41] LABS: Albumin 4.3 g/dL (3.5-5.7); Albumin/Globulin Ratio 1.4 (1.1-2.2); Bilirubin,Direct 0.1 mg/dL (0.0-0.2); Bilirubin,Indirect 0.2 mg/dL (0.0-1.0); Bilirubin,Total 0.3 mg/dL (0.3-1.0); Calcium 9.9 mg/dL (8.6-10.3); Globulin 3.1 g/dL (2.4-3.5); Total Protein 7.4 g/dL (6.4-8.9); Troponin I 0.07 ng/mL (< 0.04)
[2021-05-04 15:59] LABS: Influenza A PCR Negative (Negative); Influenza B PCR Negative (Negative); Resp. Syncytial Virus PCR Negative (Negative)
[2021-05-04 16:00] LABS: SARS-CoV-2 by PCR (In House) Negative (Negative)
[2021-05-04 16:28] LABS: ABG Base Excess 13 mEq/L (-2 to 3); ABG HCO3 42 mEq/L (21-27); ABG Oxygen Saturation 95 % (95-98); ABG PCO2 82 mmHg (35-45); ABG PH 7.32 pH Units (7.32-7.45); ABG PO2 85 mmHg (85-104); ABG TCO2 45 mEq/L (20-26)
[2021-05-04] MEDS ORDERED: Isovue-370 500 ML BOTTLE IVP ONE (16:28)
[2021-05-04 19:27] LABS: Bilirubin,Urine Negative (Negative); Blood,Urine Negative (Negative); Clarity,Urine Clear (Clear); Color,Urine Colorless (Yellow); Glucose,Urine (UA) Normal (Normal); Ketones,Urine Trace mg/dL (Negative); Leukocyte Esterase,Urine Negative (Negative); Nitrite,Urine Negative (Negative); Protein,Urine Trace mg/dL (Neg-Trace); Specific Gravity,Urine > 1.030 (1.010-1.025); Urobilinogen,Urine Normal (Normal)
[2021-05-04] MEDS ORDERED: Melatonin 3 MG TABLET PO PRN (19:27)
[2021-05-04] MEDS ORDERED: Naloxone 0.4 MG/ML INJ IVP PRN (19:27)
[2021-05-04] MEDS ORDERED: *HR* Dextrose 50 % in Water (Syg) 50 ML SYRINGE IVP PRN (19:42)
[2021-05-04] MEDS ORDERED: Dextrose Gel 15 GM/37.5 ML TUBE PO PRN ×2 (19:42)
[2021-05-04] MEDS ORDERED: D5% in Water 1,000 ML IVC PRN (19:42)
[2021-05-04] MEDS: Insulin LISPRO 300 UNITS/3 ML VIAL SUBQ SCH (21:41)
[2021-05-04] MEDS ORDERED: Aspirin 325 MG TABLET PO ONE (21:53)
[2021-05-04] MEDS ORDERED: 0.9 % Sodium Chloride 1,000 ML IVC SCH (22:00)
[2021-05-04] MEDS: Ipratropium/Albuterol Neb 3 ML IH SCH (22:42)
[2021-05-04] MEDS: Budesonide/Formoterol 160/4.5 1 PUFF INH IH SCH (22:42)
[2021-05-05] MEDS: MethylPREDNISolone 40 MG/ML VIAL IVP SCH ×3 (01:02→17:50)
[2021-05-05 03:05] LABS: Basophils % 0.2 %; Eosinophils % 0.1 %; Hematocrit 29.1 % (35.3-44.9); Hemoglobin 8.7 g/dL (11.5-15.4); Immature Granulocytes % 1.6 % (0-4); Lymphocytes # 0.7 K/mcL (0.6-4.6); Mean Corpuscular HGB Conc 29.9 g/dL (31.6-35.5); Mean Corpuscular Hemoglobin 30.7 pg (28.0-33.3); Mean Corpuscular Volume 102.8 fL (83.0-100.0); Monocytes # 0.2 K/mcL (0.0-1.3); Monocytes % 1.6 %; Neutrophils # 12.1 K/mcL (1.6-8.9); Platelet Count 200 K/mcL (140-400); Red Blood Count 2.83 M/mcL (3.82-4.97); Red Cell Distribution Width 14.1 % (11.5-14.5); Segmented Neutrophils % 91.5 %; White Blood Count 13.2 K/mcL (4.3-11.1)
[2021-05-05] MEDS: Ipratropium/Albuterol Neb 3 ML IH SCH ×4 (03:29→21:06)
[2021-05-05 03:33] LABS: BUN/Creatinine Ratio 29 (6-26); Blood Urea Nitrogen 26 mg/dL (8-23); Calcium 9.3 mg/dL (8.6-10.3); Carbon Dioxide 38 mEq/L (23-29); Chloride 100 mEq/L (98-107); Glucose 227 mg/dL (70-105); Magnesium 2.1 mg/dL (1.6-2.6); Osmolality,Calculated 308 (280-300); Potassium 3.9 mEq/L (3.5-5.1); Sodium 143 mEq/L (136-145); Troponin I 0.07 ng/mL (< 0.04); eGFR For African Americans > 60 (> 60); eGFR For Non-African Americans > 60 (> 60)
[2021-05-05] MEDS: *HR* Heparin 5,000 UNIT/ML VIAL SQ SCH ×2 (06:19→17:50)
[2021-05-05] MEDS: Budesonide/Formoterol 160/4.5 1 PUFF INH IH SCH ×2 (07:51→21:06)
[2021-05-05] MEDS: Aspirin 81 MG TAB.CHEW PO SCH (08:16)
[2021-05-05] MEDS: Insulin LISPRO 300 UNITS/3 ML VIAL SUBQ SCH ×4 (08:16→20:13)
[2021-05-06 02:51] LABS: Basophils % 0.1 %; Eosinophils % 0.1 %; Hematocrit 25.8 % (35.3-44.9); Hemoglobin 7.7 g/dL (11.5-15.4); Lymphocytes # 1.8 K/mcL (0.6-4.6); Lymphocytes % 11.7 %; Mean Corpuscular HGB Conc 29.8 g/dL (31.6-35.5); Mean Corpuscular Hemoglobin 30.7 pg (28.0-33.3); Mean Corpuscular Volume 102.8 fL (83.0-100.0); Mean Platelet Volume 11.1 fL (9.4-12.4); Monocytes # 1.5 K/mcL (0.0-1.3); Monocytes % 9.3 %; Neutrophils # 12.2 K/mcL (1.6-8.9); Platelet Count 225 K/mcL (140-400); Red Blood Count 2.51 M/mcL (3.82-4.97); Red Cell Distribution Width 14.3 % (11.5-14.5); Segmented Neutrophils % 77.8 %; White Blood Count 15.7 K/mcL (4.3-11.1)
[2021-05-06 03:17] LABS: BUN/Creatinine Ratio 32 (6-26); Blood Urea Nitrogen 34 mg/dL (8-23); Calcium 9.1 mg/dL (8.6-10.3); Carbon Dioxide 41 mEq/L (23-29); Chloride 99 mEq/L (98-107); Glucose 120 mg/dL (70-105); Magnesium 2.2 mg/dL (1.6-2.6); Osmolality,Calculated 307 (280-300); Phosphorous 2.9 mg/dL (2.7-4.5); Potassium 4.2 mEq/L (3.5-5.1); Sodium 144 mEq/L (136-145); eGFR For African Americans > 60 (> 60); eGFR For Non-African Americans 52 (> 60)
[2021-05-06] MEDS: Ipratropium/Albuterol Neb 3 ML IH SCH ×4 (03:27→22:09)
[2021-05-06] MEDS: MethylPREDNISolone 40 MG/ML VIAL IVP SCH ×3 (03:33→18:26)
[2021-05-06] MEDS: *HR* Heparin 5,000 UNIT/ML VIAL SQ SCH ×2 (05:35→18:26)
[2021-05-06 06:58] LABS: Adenovirus Not Detected (Not Detect); Coronavirus 229E Not Detected (Not Detect); Coronavirus HKU1 Not Detected (Not Detect); Coronavirus NL63 Not Detected (Not Detect); Coronavirus OC43 Not Detected (Not Detect); Human Metapneumovirus Not Detected (Not Detect); Human Rhinovirus/Enterovirus Not Detected (Not Detect); Influenza A Subtype 2009 H1 Not Detected (Not Detect); SARS-CoV-2 Not Detected (Not Detect)
[2021-05-06 06:59] LABS: Bordetella Pertussis Not Detected (Not Detect); Chlamydophila pneumoniae Not Detected (Not Detect); Influenza B Not Detected (Not Detect); Mycoplasma pneumoniae Not Detected (Not Detect); Parainfluenza Virus 1 Not Detected (Not Detect); Parainfluenza Virus 2 Not Detected (Not Detect); Parainfluenza Virus 3 Not Detected (Not Detect); Parainfluenza Virus 4 Not Detected (Not Detect); Respiratory Syncytial Virus Not Detected (Not Detect)
[2021-05-06] MEDS: Budesonide/Formoterol 160/4.5 1 PUFF INH IH SCH ×2 (07:50→22:09)
[2021-05-06] MEDS: Aspirin 81 MG TAB.CHEW PO SCH (08:57)
[2021-05-06] MEDS: Insulin LISPRO 300 UNITS/3 ML VIAL SUBQ SCH ×4 (08:57→22:23)
[2021-05-06] MEDS ORDERED: Insulin Human Regular 20 UNIT in 0.9 % Sodium Chloride 10 ML IV ONE (14:17)
[2021-05-06] MEDS: Insulin DETEMIR 100 UNIT/ML X5UNITS SUBQ SCH (22:23)
[2021-05-06] MEDS ORDERED: Acetaminophen 325 MG TABLET PO PRN (23:00)
[2021-05-07] MEDS: MethylPREDNISolone 40 MG/ML VIAL IVP SCH ×3 (01:56→17:33)
[2021-05-07] MEDS: Ipratropium/Albuterol Neb 3 ML IH SCH ×4 (03:43→19:41)
[2021-05-07 04:43] LABS: Basophils % 0.2 %; Hemoglobin 7.5 g/dL (11.5-15.4); Immature Granulocytes % 1.6 % (0-4); Lymphocytes # 0.6 K/mcL (0.6-4.6); Lymphocytes % 4.5 %; Mean Corpuscular HGB Conc 31.3 g/dL (31.6-35.5); Mean Corpuscular Hemoglobin 31.4 pg (28.0-33.3); Mean Corpuscular Volume 100.4 fL (83.0-100.0); Mean Platelet Volume 11.5 fL (9.4-12.4); Monocytes # 0.5 K/mcL (0.0-1.3); Monocytes % 3.5 %; Neutrophils # 11.5 K/mcL (1.6-8.9); Platelet Count 211 K/mcL (140-400); Red Blood Count 2.39 M/mcL (3.82-4.97); Segmented Neutrophils % 90.2 %; White Blood Count 12.8 K/mcL (4.3-11.1)
[2021-05-07 04:51] LABS: Calcium 9.2 mg/dL (8.6-10.3); Magnesium 2.1 mg/dL (1.6-2.6); Phosphorous 3.6 mg/dL (2.7-4.5); Potassium 4.6 mEq/L (3.5-5.1)
[2021-05-07] MEDS: *HR* Heparin 5,000 UNIT/ML VIAL SQ SCH ×2 (06:40→17:33)
[2021-05-07] MEDS: Budesonide/Formoterol 160/4.5 1 PUFF INH IH SCH ×2 (10:06→19:41)
[2021-05-07] MEDS: Insulin LISPRO 300 UNITS/3 ML VIAL SUBQ SCH ×4 (10:45→20:46)
[2021-05-07] MEDS: Aspirin 81 MG TAB.CHEW PO SCH (11:10)
[2021-05-07] MEDS: Insulin DETEMIR 100 UNIT/ML X5UNITS SUBQ SCH ×2 (11:11→20:59)
[2021-05-08] MEDS: MethylPREDNISolone 40 MG/ML VIAL IVP SCH ×2 (02:57→10:22)
[2021-05-08] MEDS: Ipratropium/Albuterol Neb 3 ML IH SCH ×3 (04:11→15:40)
[2021-05-08 05:03] LABS: Basophils % 0.3 %; Hematocrit 25.5 % (35.3-44.9); Hemoglobin 7.7 g/dL (11.5-15.4); Immature Granulocytes % 3.6 % (0-4); Lymphocytes # 1.1 K/mcL (0.6-4.6); Lymphocytes % 7.2 %; Mean Corpuscular HGB Conc 30.2 g/dL (31.6-35.5); Mean Corpuscular Volume 99.2 fL (83.0-100.0); Mean Platelet Volume 11.4 fL (9.4-12.4); Monocytes # 1.1 K/mcL (0.0-1.3); Neutrophils # 12.3 K/mcL (1.6-8.9); Nucleated Red Blood Cells 0.1 /100 WBC (0); Platelet Count 224 K/mcL (140-400); Red Blood Count 2.57 M/mcL (3.82-4.97); Red Cell Distribution Width 14.1 % (11.5-14.5); Segmented Neutrophils % 81.9 %; White Blood Count 15.1 K/mcL (4.3-11.1)
[2021-05-08] MEDS: *HR* Heparin 5,000 UNIT/ML VIAL SQ SCH (05:06)
[2021-05-08 05:21] LABS: BUN/Creatinine Ratio 41 (6-26); Blood Urea Nitrogen 39 mg/dL (8-23); Calcium 9.1 mg/dL (8.6-10.3); Carbon Dioxide 38 mEq/L (23-29); Chloride 98 mEq/L (98-107); Glucose 211 mg/dL (70-105); Magnesium 2.2 mg/dL (1.6-2.6); Osmolality,Calculated 304 (280-300); Phosphorous 3.1 mg/dL (2.7-4.5); Potassium 4.8 mEq/L (3.5-5.1); Sodium 139 mEq/L (136-145); eGFR For African Americans > 60 (> 60); eGFR For Non-African Americans 59 (> 60)
[2021-05-08] MEDS: Insulin DETEMIR 100 UNIT/ML X5UNITS SUBQ SCH (07:48)
[2021-05-08] MEDS: Aspirin 81 MG TAB.CHEW PO SCH (07:48)
[2021-05-08] MEDS: Insulin LISPRO 300 UNITS/3 ML VIAL SUBQ SCH ×2 (07:49→11:45)
[2021-05-08] MEDS: Budesonide/Formoterol 160/4.5 1 PUFF INH IH SCH (07:56)
[2021-05-08 07:57] VITALS: O2SAT 96
[2021-05-08 10:58] VITALS: BP 130/63; PULSE 92; TEMP 98.3
== END 2021-05-08 15:50 | disposition home or self-care (01) | DRG 189 ==
LOC: 3NENU 13:58 → EMEROOARM 13:58 → 3NENU 20:29
PROVIDERS: ADMIT Student in an Organized Health Care Education/Training Program; ATTEND Student in an Organized Health Care Education/Training Program